=== PATIENT | male | born 1955 | race Caucasian/White ===

== ENCOUNTER 2017-06-13 12:40 | Emergency (ER) | payer MEDICARE ==
[~2017-06-13] VITALS: Ht 162.5 cm; Wt 48.5 kg
[~2017-06-13 12:40] MED LIST: ALBUTEROL0.09 MG/A2 INH; AZITHROMYCIN250 MG PO; CLINDAMYCIN HC300 MG PO; FLOVENT 220 M220 MCG INH; FLOVENT DI250 MCG/Ac IH; HYDROCODONE BIT1 T11 PO; SPIRIVA18 MCG PO
== END 2017-06-13 14:53 | disposition left against medical advice (07) ==
LOC: ED 12:40
DX: E87.1 Hypo-osmolality and hyponatremia (principal); Z88.0 Allergy status to penicillin; Z79.899 Other long term (current) drug therapy; F17.200 Nicotine dependence, unspecified, uncomplicated

== ENCOUNTER 2018-03-01 18:46 | Inpatient (IN) | payer MEDICARE ==
[~2018-03-01] VITALS: Ht 162.5 cm; Wt 45.8 kg
--- NOTE | ~2018-03-01 | PR ---
[place], [place] PROGRESS NOTE NAME: CAIN HUBBARD [facility] #: [id number] UNIT #: [id number] ROOM: 406 DOCTOR: ARLEEN PERRY MD,GARCIA BIRTHDATE: [birth year] DOS: 03/03/2018 SUBJECTIVE: He has been showing gradual reduction in the respiratory symptom and reduction of cough, wheezing and shortness of breath. Denies symptoms of chest pain or any hemoptysis. OBJECTIVE: VITAL SIGNS: Which have been recorded showed normal temperature, respirations 18, heart rate 92, and blood pressure 130/75, pulse oxygen saturation on room air 95% saturation. HEENT: No acute changes. CARDIOVASCULAR: S1, S2 audible. LUNGS: Noted with mild expiratory wheezing, patient noted decreased from previously with improvement in air entry of the lungs. ABDOMEN: Flat, soft, nontender. Bowel sounds present. EXTREMITIES: Without any acute edema. LABORATORY DATA: The patient's CBC; WBC count and platelet count normal, hematocrit was 9.7. The CMP of the patient this morning, glucose 186. BUN and creatinine was normal. Sodium 134. IMPRESSION: 1. The patient ____ noted with gradual improvement in the respiratory status, noted with acute exacerbation of chronic obstructive pulmonary disease and acute bronchitis. 2. History of past chronic nicotine dependence. PLAN OF MANAGEMENT: Continuation of the bronchodilators, oxygen supplementation. Decrease Solu-Medrol dose to 40 mg b.i.d. dosing. Other supportive plan of management. Ambulation was encouraged as tolerated. GARCIA BACON MD CM:PNTRANS [id number] GARCIA PERRY MD 03/03/18 1758 interface
--- NOTE | ~2018-03-01 | EKG ---
[place], [place] ELECTROCARDIOGRAM REPORT NAME: CAIN HUBBARD UNIT #: [id number] ROOM: 405 DOCTOR: ARLEEN PERRY MD,GARCIA BIRTHDATE: [birth year] DOS: 03/01/2018 Echocardiogram was done on 03/01/2018. Sinus tachycardia noted. Heart rate 100 beats per minute. Biatrial enlargement would be considered. Nonspecific ST-T changes were noted. Poor R-wave progression. Possibility of old anterior wall myocardial infarction would be considered. GARCIA BACON MD CM:EKGRPT:ELECTROCARDIOGRAM REPORT [id number] GARCIA PERRY MD
--- NOTE | ~2018-03-01 | PR ---
[place], [place] PROGRESS NOTE NAME: CAIN HUBBARD [facility] #: [id number] UNIT #: [id number] ROOM: 406 DOCTOR: ARLEEN PERRY MD,GARCIA BIRTHDATE: [birth year] DOS: 03/04/2018 SUBJECTIVE: The patient was noted comfortable at this time without acute distress. He has not been noted any symptoms of chest pain. Overall improvement in respiratory symptoms was continued. OBJECTIVE: VITAL SIGNS: Normal temperature, respiratory rate 18, heat rate 86, blood pressure 126/72. The pulse oxygen saturation of the patient room air 96% saturation. HEENT: Head was atraumatic. Eyes nonicterus. NECK: Supple. CARDIOVASCULAR: S1, S2 audible. LUNGS: The patient was noted without any wheezing or crackles. ABDOMEN: Soft, nontender. Bowel sounds present. EXTREMITIES: Without any acute edema. IMPRESSION: 1. The patient with stable respiratory status was noted at the present time with current medical management. 2. Resolving acute exacerbation of chronic obstructive pulmonary disease and acute history of nicotine abuse previously. PLAN OF MANAGEMENT: The patient could be discharged home today on tapering dose of prednisone and antibiotic. Abstain tobacco use and outpatient assessment post-discharge were recommended. GARCIA BACON MD CM:PNTRANS [id number] GARCIA PERRY MD 03/04/181926 interface
--- NOTE | ~2018-03-01 | CON ---
[place], [place] REPORT OF CONSULTATION NAME: CAIN HUBBARD [facility] #: [id number] UNIT #: [id number] ROOM: 405 DOCTOR: ARLEEN PERRY MDGARCIA BIRTHDATE: [birth year] DOS: 03/02/2018 PULMONARY CONSULTATION EVALUATION AND MANAGEMENT CONSULTATION REQUESTED BY: Hospitalist Services. REASON FOR CONSULTATION: Assessment of the current acute exacerbation of chronic obstructive pulmonary disease. HISTORY OF PRESENT ILLNESS: A 62-year-old white male patient who has been admitted to the hospital under the care of the Hospitalist Service on 03/01/2018. The patient presented to the Emergency Room was reporting having symptoms of increased shortness of breath associated with cough and wheezing occurring in the past few days with significant worsening. He came into the Emergency Room where he has been assessed. The patient noted with acute exacerbation of chronic obstructive pulmonary disease and recommended for hospitalization. The patient denies any symptoms of chest pain or hemoptysis. The cough has been noted with the green sputum expectoration small to moderate quantity at time. The shortness of breath occurring with mild exertion. The wheezing was noted with tightness in the chest. There was no chest pain. REVIEW OF SYSTEMS: CONSTITUTIONAL: Fatigue and tiredness reported. No symptoms of fever or chills. EYES: Denies any burning, redness, or tenderness. CARDIOVASCULAR: Denies angina pain, edema, pain of the lower extremities. GASTROINTESTINAL: No dysphagia, nausea, vomiting, diarrhea, abdominal pain, hematemesis, melena, or hematochezia. GENITOURINARY: Denies dysuria, suprapubic pain, hematuria. MUSCULOSKELETAL: No acute joint pain, redness, or tenderness. CENTRAL NERVOUS SYSTEM: No dizziness, headache, diplopia, syncopal episodes or tingling sensation of any extremities. Remaining systems were reviewed, they were noted all negative. PAST MEDICAL HISTORY: 1. Reported with history of chronic obstructive pulmonary disease. 2. Essential hypertension. 3. Seasonal allergies. 4. Chronic hypoxic respiratory failure, nonadherent with the use of oxygen. 5. Vitamin D deficiency. PAST SURGICAL HISTORY: Tonsillectomy. SOCIAL HISTORY: The patient stated he is . He started smoking at younger age, smoked 2 packs of cigarettes per day, later on decreased to a pack of cigarettes per day and currently smoking half a pack of cigarettes per day. He is and lives at home. FAMILY HISTORY: The patient's father from complications of COPD. Mother [place], [place] RE[facility]ATION [id number] UNIT #: [id number] ROOM: 405 DOCTOR: ARLEEN PERRY MDGARCIA BIRTHDATE: [birth year] from complication related to diabetes mellitus. HOME MEDICATIONS: Noted use of Flovent Diskus 250 mcg one b.i.d. and Ventolin HFA inhaler p.r.n. use. DRUG ALLERGIES: NOTED ALLERGY TO PENICILLINS. PHYSICAL EXAMINATION: GENERAL: A 62-year-old white male who has been currently noted to be awake and alert, lying in the bed. Height of 5 feet 4 inches, weight of 101 pounds, BMI 17. VITAL SIGNS: Temperature 101.4 degree Fahrenheit noted on admission later on afebrile, respiratory rate 18-22, heart rate 112-91, blood pressure 120/71-129/79. Pulse oxygen saturation on room air was 91% saturation, 95% saturation at rest. HEENT: Head was atraumatic. Eyes nonicterus. NECK: Supple. CARDIOVASCULAR: S1, S2 is audible. LUNGS: Noted moderate general reduction in breath sound, diffuse expiratory wheezing, no crackles. ABDOMEN: Soft, nontender, flat. The bowel sounds present. EXTREMITIES: No edema, clubbing, cyanosis. CENTRAL NERVOUS SYSTEM: Noted nonfocal. MUSCULOSKELETAL: Without any acute deformities. SKIN: Noted without any abnormal lesions or rashes. LABORATORY DATA: CMP of the patient that was done yesterday on admission noted essentially normal CMP except sodium was mildly decreased 127. The PT, PTT yesterday were noted normal. CBC yesterday, WBC count 14,000, hemoglobin 12.3, platelet count of 269,000. Lactic acid 1.7. The arterial blood gas yesterday pH of 7.38, pCO2 of 31, PO2 of 71 on room air. The PT, PTT this morning remains normal. CMP this morning, glucose 148, BUN and creatinine normal, sodium increased to 130. CBC of 03/02/2018 resolution of the leukocytosis. WBC count today was noted 8.6, platelet count were normal. The influenza A and B, nasal washing antigen negative. Chest x-ray, 1 view, which was done in the Emergency Room was reviewed, noted with changes of COPD without any acute pulmonary infiltration. IMPRESSION: 1. The patient will be admitted to the hospital noted with acute exacerbation of chronic obstructive pulmonary disease, acute bronchitis, which was noted progressive worse with the chronic nicotine dependence, by history. 2. History of essential hypertension as well. PLAN OF MANAGEMENT: Continuation of the corticosteroids and the bronchodilators administration. The dose of Solu-Medrol will be decreased based on progressive illness. Continue antibiotics. DVT prophylaxis. Monitor respiratory status closely. Counseling about tobacco cessation was done for more than 3 minutes. He was offered nicotine replacement patch as other medication to help with tobacco cessation or currently withdrawal stating that he does not wish to use [place], [place] REPORT OF CONSULTATION NAME: CAIN HUBBARD [facility] UNIT #: [id number] ROOM: 405 DOCTOR: ARLEEN PERRY MD,GARCIA BIRTHDATE: [birth year] any of such intervention at this time. The patient does not want any medication during this hospitalization to have a tobacco cessation will be ordered accordingly. Sputum for Gram stain culture was ordered. Thanks for allowing me to participate in the care of this patient. GARCIA BACON MD CM:CONSTR:REPORT OF CONSULTATION 1355 03/03/18 0403 interface
[2018-03-01 18:47] VITALS: BP 129/80
[2018-03-01 19:23] VITALS: BP 131/80
[2018-03-01 19:30] LABS: BASO % 0.3 % (0.0-1.0); HEMATOCRIT 36.1 % (42.0-52.0); HEMOGLOBIN 12.3 g/dl (14.0-18.0); LYMPH # 0.9 10*3/uL (1.3-4.4); LYMPH % 6.2 % (27.0-41.0); MEAN CELL VOLUME 98.1 fl (80.0-94.0); MEAN CORPUSCULAR HGB 33.4 pg (27.0-31.0); MEAN CORPUSCULAR HGB CONC 34.1 g/dl (33.0-37.0); MEAN PLATELET VOLUME 9.3 fl (9.6-12.3); MONO # 0.9 10*3/uL (0.1-1.0); MONO % 6.6 % (3.0-9.0); NEUT # 12.1 10*3/uL (2.3-7.9); NEUT % 86.6 % (47.0-73.0); PLATELET COUNT AUTOMATED 269 10*3/uL (130-400); RED BLOOD COUNT 3.68 10*6/uL (4.50-5.90); RED CELL DISTRI WIDTH 12.9 % (0-14.5)
[2018-03-01 19:47] LABS: ALBUMIN 3.6 gm/dl (3.1-4.5); ALKALINE PHOSPHATASE 37 U/L (45-117); BUN 13 mg/dl (7-24); CHLORIDE 92 mmol/L (98-107); CREATININE 1.17 mg/dL (0.70-1.30); POTASSIUM 4.6 mmol/L (3.5-5.1); SGOT/AST 15 IU/L (3-35); SGPT/ALT 13 U/L (12-78); SODIUM 127 mmol/L (136-145); TOTAL PROTEIN 7.9 gm/dL (6.4-8.2)
[2018-03-01 19:48] LABS: TROPONIN I < 0.015 ng/ml (<0.045)
[2018-03-01 20:19] VITALS: BP 137/74
[2018-03-01 20:37] VITALS: BP 129/79
[2018-03-01 20:48] LABS: ABG BASE EXCESS -5.6 mmol/L (-2.0-2.0); ABG HCO3 17.9 mmol/l (22-26); ABG O2 SATURATION 93.3 % (95-97); ARTERIAL BLOOD GAS PCO2 31.4 mmHg (35-45); ARTERIAL BLOOD GAS PH 7.38 (7.35-7.45); ARTERIAL BLOOD GAS PO2 71.1 mmHg (80-90)
[2018-03-02] VITALS: BP 104/71
[2018-03-02 06:35] LABS: HEMATOCRIT 33.8 % (42.0-52.0); HEMOGLOBIN 10.9 g/dl (14.0-18.0); MEAN CELL VOLUME 98.5 fl (80.0-94.0); MEAN CORPUSCULAR HGB 31.8 pg (27.0-31.0); MEAN CORPUSCULAR HGB CONC 32.2 g/dl (33.0-37.0); MEAN PLATELET VOLUME 9.7 fl (9.6-12.3); PLATELET COUNT AUTOMATED 232 10*3/uL (130-400); RED BLOOD COUNT 3.43 10*6/uL (4.50-5.90); RED CELL DISTRI WIDTH 12.6 % (0-14.5); WHITE BLOOD COUNT 8.6 10*3/uL (4.8-10.8)
[2018-03-02 07:05] LABS: ALBUMIN 2.9 gm/dl (3.1-4.5); BUN 13 mg/dl (7-24); CHLORIDE 98 mmol/L (98-107); CHOLESTEROL 127 mg/dL (<200); CREATININE 0.89 mg/dL (0.70-1.30); PHOSPHOROUS 3.3 mg/dL (2.5-4.9); POTASSIUM 4.5 mmol/L (3.5-5.1); SGOT/AST 15 IU/L (3-35); SGPT/ALT 10 U/L (12-78); SODIUM 130 mmol/L (136-145)
[2018-03-02 07:07] LABS: ACT PARTIAL THROMBO TIME 31.1 SECONDS (20.8-31.5)
[2018-03-02 07:09] LABS: ALKALINE PHOSPHATASE 34 U/L (45-117); FREE T4 1.05 ng/dl (0.76-1.46); HDL CHOLESTEROL 68 mg/dl (40-60); LDL CHOLESTEROL 51 mg/dL (9-159); THYROID STIM HORMONE (HS) 0.561 uIU/ml (0.358-4.75); TOTAL PROTEIN 6.8 gm/dL (6.4-8.2); TRIGLYCERIDES 41 mg/dl (<150); VLDL CHOLESTEROL 8 mg/dL (6-40)
[2018-03-02 07:30] LABS: BURR CELLS FEW; PLATELET SUFFICIENCY NORMAL (NORMAL); TOTAL CELLS COUNTED 100 #CELLS
[2018-03-02 08:00] VITALS: BP 112/66
[2018-03-02 08:20] LABS: VITAMIN D, 25-HYDROXY 32.6 ng/mL (30-100)
[2018-03-02 12:00] VITALS: BP 120/76
[2018-03-02 16:00] VITALS: BP 115/68
[2018-03-02] MEDS ORDERED: SINGULAIR10 M1 PO (16:54)
[2018-03-02] MEDS ORDERED: NORVASC5 MG PO (16:54)
[2018-03-02] MEDS ORDERED: VITAMIN D31000 UNIT PO (16:56)
[2018-03-02 20:00] VITALS: BP 125/67
[2018-03-03] VITALS: BP 118/64
[2018-03-03 07:12] LABS: HEMATOCRIT 28.6 % (42.0-52.0); HEMOGLOBIN 9.7 g/dl (14.0-18.0); MEAN CELL VOLUME 96.3 fl (80.0-94.0); MEAN CORPUSCULAR HGB 32.7 pg (27.0-31.0); MEAN CORPUSCULAR HGB CONC 33.9 g/dl (33.0-37.0); MEAN PLATELET VOLUME 9.8 fl (9.6-12.3); PLATELET COUNT AUTOMATED 241 10*3/uL (130-400); RED BLOOD COUNT 2.97 10*6/uL (4.50-5.90); RED CELL DISTRI WIDTH 12.8 % (0-14.5); WHITE BLOOD COUNT 10.7 10*3/uL (4.8-10.8)
[2018-03-03 07:44] LABS: ALBUMIN 2.7 gm/dl (3.1-4.5); BUN 17 mg/dl (7-24); CHLORIDE 104 mmol/L (98-107); CREATININE 0.79 mg/dL (0.70-1.30); SGOT/AST 16 IU/L (3-35); SGPT/ALT 10 U/L (12-78); SODIUM 134 mmol/L (136-145)
[2018-03-03 07:46] LABS: ALKALINE PHOSPHATASE 34 U/L (45-117)
[2018-03-03 08:00] VITALS: BP 131/75
[2018-03-03 08:26] LABS: PLATELET SUFFICIENCY NORMAL (NORMAL); POLYCHROMASIA SLIGHT; TOTAL CELLS COUNTED 100 #CELLS
[2018-03-03 12:00] VITALS: BP 117/64
[2018-03-03 16:00] VITALS: BP 135/68
[2018-03-03 20:16] VITALS: BP 142/79
[2018-03-04 00:32] VITALS: BP 125/78
[2018-03-04 07:02] LABS: HEMATOCRIT 29.1 % (42.0-52.0); HEMOGLOBIN 9.9 g/dl (14.0-18.0); MEAN CELL VOLUME 96.4 fl (80.0-94.0); MEAN CORPUSCULAR HGB 32.8 pg (27.0-31.0); MEAN PLATELET VOLUME 9.2 fl (9.6-12.3); PLATELET COUNT AUTOMATED 245 10*3/uL (130-400); RED BLOOD COUNT 3.02 10*6/uL (4.50-5.90); WHITE BLOOD COUNT 8.6 10*3/uL (4.8-10.8)
[2018-03-04 07:35] LABS: CHLORIDE 103 mmol/L (98-107); SODIUM 136 mmol/L (136-145)
[2018-03-04 07:39] LABS: BUN 15 mg/dl (7-24); CREATININE 0.78 mg/dL (0.70-1.30); PLATELET SUFFICIENCY NORMAL (NORMAL); TOTAL CELLS COUNTED 100 #CELLS
[2018-03-04 08:00] VITALS: BP 126/72
[2018-03-04] MEDS ORDERED: LEVAQUIN500 M2 PO (10:34)
[2018-03-04] MEDS ORDERED: PREDNISONE10 MG PO (10:34)
[2018-03-04 12:59] VITALS: BP 123/70
== END 2018-03-04 13:01 | disposition home or self-care (01) | DRG 871 ==
LOC: ED 18:46 → 4E 19:51 → EDHOLD 19:51 → 4E 20:18
PROVIDERS: Emergency Medicine; Family Medicine; Student in an Organized Health Care Education/Training Program
DX: A41.9 Sepsis, unspecified organism (principal); J18.9 Pneumonia, unspecified organism; J96.21 Acute and chronic respiratory failure with hypoxia; J44.1 Chronic obstructive pulmonary disease with (acute) exacerbation; E87.1 Hypo-osmolality and hyponatremia; J44.0 Chronic obstructive pulmonary disease with (acute) lower respiratory infection; I10 Essential (primary) hypertension; F10.10 Alcohol abuse, uncomplicated; D53.9 Nutritional anemia, unspecified; Z53.29 Procedure and treatment not carried out because of patient's decision for other reasons; J20.9 Acute bronchitis, unspecified; R73.9 Hyperglycemia, unspecified; F17.210 Nicotine dependence, cigarettes, uncomplicated; E55.9 Vitamin D deficiency, unspecified; J30.2 Other seasonal allergic rhinitis; Z88.0 Allergy status to penicillin; Z79.51 Long term (current) use of inhaled steroids; Z71.6 Tobacco abuse counseling; Z79.899 Other long term (current) drug therapy

== ENCOUNTER 2018-10-20 23:46 | Inpatient (IN) | payer MEDICARE ==
--- NOTE | ~2018-10-20 | PR ---
[place], [place] PROGRESS NOTE [id number] UN[facility] #: [id number] ROOM: 404 DOCTOR: ARLEEN PERRY MD,GARCIA BIRTHDATE: [birth year] DOS: 10/23/2018 SUBJECTIVE: He has been reporting reduction and improvement in respiratory symptoms progressively. Denies symptoms of chest pain. Coughing has been subsiding, not completely resolved. Shortness of breath was improving. There were no symptoms of chest pain. OBJECTIVE: VITAL SIGNS: For the patient in the past 24 hours as a normal temperature, respirations 16, heart rate 80, blood pressure 90/62. Pulse oxygen saturation as 97% saturation. HEENT: Head was atraumatic. Eye nonicterus. NECK: Supple. CARDIOVASCULAR: S1, S2 audible. LUNGS: Moderate reduction of the breath sounds bilaterally. ABDOMEN: Soft, nontender, bowel sounds present. EXTREMITIES: Without any acute edema. IMPRESSION: Resolving acute exacerbation of chronic obstructive pulmonary disease, acute tracheobronchitis progressively. PLAN OF MANAGEMENT: No changes in the plan of care at this time. Continue current therapy, plan of management and care and other treatment and therapies without any changes. GARCIA BACON MD CM:PIPER [id number] GARCIA PERRY MD 10/23/18 1434 interface
--- NOTE | ~2018-10-20 | EKG ---
[place], [place] ELECTROCARDIOGRAM REPORT NAME: CAIN HUBBARD UNIT #: [id number] ROOM: 404 DOCTOR: KACEY DRAFT REPORT BIRTHDATE: [birth year] [facility] Test Date: 2018-10-21 Test Time: 00:04:18 Pat Name: CAIN HUBBARD Department: ED Room: 404 Gender: M [employer] Technician: Ruby Rudd : 1955 Requested By: TORIBIO HARO Order Number: [id number] Reading MD: Jhon Mccarthy MD Measurements Intervals [place] Rate: 89 P: 88 [place]: 136 QRS: 83 QRSD: 73 T: 70 QT: 351 QTc: 428 Interpretive Statements Sinus rhythm Probable left atrial enlargement Anterior infarct, old Electronically Signed On 10-21-2018 12:04:47 PST by Jhon Mccarthy MD CM:EKGRPT:ELECTROCARDIOGRAM REPORT [id number] TORIBIO HARO EPIPHANY DRAFT REPORT TORIBIO HARO
--- NOTE | ~2018-10-20 | CON ---
[place], [place] REPORT OF CONSULTATION NAME: CAIN HUBBARD [facility] #: [id number] UNIT #: [id number] ROOM: 404 DOCTOR: GARCIA CHAND MD BIRTHDATE: [birth year] DOS: 10/21/2018 PULMONARY CONSULTATION, EVALUATION AND MANAGEMENT REASON FOR CONSULTATION: For the assessment of COPD. HISTORY OF PRESENT ILLNESS: A 62-year-old white male patient who has been admitted to the hospital. The patient developed symptoms of shortness of breath with coughing, chest congestion, and wheezing overnight. He has been assessed in the Emergency Room early this morning. He has been noted with acute exacerbation of chronic obstructive pulmonary disease. The patient admitted to the hospital for further medical management. He denies symptoms of chest pain or hemoptysis. Cough has been noted [id number] with small amount of sputum expectoration, wheezing, or chest tightness was reported. Shortness of breath occurs significantly worsened with minimal exertion. The patient supposedly be using oxygen supplementation at home continuously, but stating he does not follow directions and using oxygen regularly as prescribed. REVIEW OF SYSTEMS: CONSTITUTIONAL SYMPTOMS: Fatigue and tiredness noted. Denies symptoms of fever or chills. EYES: Denies burning, redness, or tenderness. EARS, NOSE, THROAT SYMPTOMS: Denies sore throat, hoarseness, otalgia, postnasal drainage, or epistaxis. CARDIOVASCULAR: Denies anginal pain, edema, and pain of the lower extremities. MUSCULOSKELETAL: No joint pain, redness, or tenderness. SKIN: Denies lesions or rashes. CENTRAL NERVOUS SYSTEM: No dizziness, headache, diplopia, or syncopal episode. GENITOURINARY SYMPTOMS: No dysuria, suprapubic pain, hematuria, or urinary incontinence. Remaining systems were reviewed. They were noted all negative. PAST MEDICAL HISTORY: 1. Known history of chronic obstructive pulmonary disease. 2. Chronic hypoxic respiratory failure, use of oxygen supplementation 2 liters nasal cannula, but noted nonadhering with the treatment. 3. Osteoarthritis. 4. Essential hypertension. 5. Seasonal allergic rhinitis. 6. Vitamin D deficiency. PAST SURGICAL HISTORY: Noted as tonsillectomy. SOCIAL HISTORY: The patient is and lives at home. He does not have any children. He has been known with history of intermittent marijuana use. Social alcohol use. Tobacco use noted from age of [age] years old up to 2 packs of cigarettes per day, which has been decreased, half a pack of cigarettes per day at this time. [place], [place] REPORT OF CONSULTATION NAME: CAIN HUBBARD UNIT #: [id number] ROOM: 404 DOCTOR: GARCIA CHAND MD BIRTHDATE: [birth year] FAMILY HISTORY: The patient's father of a complication of COPD. Mother of complication of diabetes mellitus. HOME MEDICATIONS: Listed use of albuterol sulfate nebulizer, ProAir, Norvasc, vitamin D, Flovent Diskus, ibuprofen, Singulair, Anoro Ellipta, and fish oil. DRUG ALLERGIES: PENICILLINS. PHYSICAL EXAMINATION: GENERAL: A 62-year-old white male currently noted to be awake and alert without acute distress this morning of assessment. Height of 5 feet 4 inches, weight of 106 pounds, BMI of 18.2. VITAL SIGNS: Normal temperature, respiratory rate 16, heart rate of 79-80, blood pressure is 135/77-113/69. Pulse oxygen at rest on room air 95% saturation. HEENT: Examination shows no acute change. Head was atraumatic. Eyes nonicterus. Oral mucosa moist. NECK: Supple. CARDIOVASCULAR: S1, S2 is audible. LUNGS: Noted general reduction in breath sounds with mild expiratory wheezing, no crackles. ABDOMEN: Flat, soft, nontender. Bowel sounds present. EXTREMITIES: Noted without any acute edema, clubbing, or cyanosis. MUSCULOSKELETAL: Noted without any acute deformities. CENTRAL NERVOUS SYSTEM: Cranial nerves 2-12 intact. LABORATORY DATA: The chest x-ray that was done, 1 view, this morning noted with advanced COPD changes. Severe hyperinflation of the lungs. CBC of 10/21/2018, normal WBC count, hemoglobin 13.5, hematocrit 40.2, and platelet count was normal. Lactic acid 3.0 on admission, followup of 0.6. The PT, PTT for the noted as normal. CMP of 10/21/2018, normal BUN and creatinine, sodium 133, remaining CMP was normal. CMP this morning repeated again after hospitalization. Normal BUN and creatinine, sodium 134. CBC this morning repeated again, hemoglobin 8, hematocrit 12.8, platelet count was recorded as normal. Influenza A and B, nasal washing antigens were negative. IMPRESSION: 1. The patient who has been currently admitted to the hospital for acute exacerbation of chronic obstructive pulmonary disease appear to be advanced chronic obstructive pulmonary disease with history of chronic nicotine dependence. 2. History of chronic hypoxic respiratory failure. The patient has been noted nonadhering with treatment with use of oxygen. 3. Active nicotine abuse. 4. Low BMI, most likely related to the advanced chronic obstructive pulmonary disease would be considered as well. PLAN OF MANAGEMENT: The patient has been currently getting Solu-Medrol 50 mg q.8 hours. The dose will be decreased to 40 mg q.8 hours, DuoNeb will ____ herself for medical history of COPD. The patient has been getting antibiotic, [place], [place] REPORT OF CONSULTATION NAME: CAIN HUBBARD UNIT #: [id number] ROOM: [facility] DOCTOR: ARLEEN PERRY MD,GARCIA BIRTHDATE: [birth year] Zithromax, and Rocephin At the present time, the antibiotic spectrum will be changed based on the culture results availability. Other supportive therapy, plan of management, care plan for the patient to be continued. Obtain the arterial blood gas to assess the hypercapnia as well. Nicotine replacement patches as well. Other additional treatment changes will be ordered based on the progression of the illness. Outpatient assessment for alpha-1 antitrypsin deficiency should be done because what appears like advanced COPD with emphysema. GARCIA BACON MD CM:CONSTR:REPORT OF CONSULTATION 1335 10/21/18 1924 interface
--- NOTE | ~2018-10-20 | PR ---
[place], [place] PROGRESS NOTE NAME: CAIN HUBBARD [facility] #: [id number] UNIT #: [id number] ROOM: 404 DOCTOR: ARLEEN PERRY MD,GARCIA BIRTHDATE: [birth year] DOS: 10/22/2018 SUBJECTIVE: The patient was seen and examined on 10/22/2018. He has been rather noted with reduction in the respiratory symptoms slowly. Cough has been noted with small amount of sputum expectoration, appear to be purulent. There were symptoms of chest pain, fever or chills reported by the patient. OBJECTIVE: VITAL SIGNS: Normal temperature, respiratory rate 20, heart rate 74, blood pressure 190/58. The pulse oxygen saturation on 1 liter nasal cannula 98% saturation. HEENT: No acute change. NECK: Supple. CARDIOVASCULAR: S1, S2 is audible. LUNGS: Moderate decreased breath sounds with expiratory wheezing, no crackles. ABDOMEN: Soft, nontender. Bowel sounds present. EXTREMITIES: No edema. LABORATORY DATA: CBC today; WBC count 7.2, hemoglobin 11.8, platelet count were normal. IMPRESSION: The patient with resolving acute exacerbation of chronic obstructive pulmonary disease, acute tracheobronchitis progressively. PLAN OF MANAGEMENT: No changes in the plan of therapy at this time. Continue current plan of management. Follow the results of the sputum for Gram stain and culture, which will be sent today. GARCIA BACON MD CM:PNTRANS 1258 1605 GARCIA PERRY MD 10/22/18 1603 interface
[~2018-10-20 23:46] MED LIST changes: +LEVAQUIN500 M2 PO; +NORVASC5 MG PO; +PREDNISONE10 MG PO; +SINGULAIR10 M1 PO; +VITAMIN D31000 UNIT PO
[2018-10-20 23:50] VITALS: BP 135/77
[2018-10-21] VITALS (7 sets, daily range): BP systolic 106–132; BP diastolic 61–70
[2018-10-21 00:14] LABS: BASO % 0.4 % (0.0-1.0); EOS # 0.1 10*3/uL (0.0-0.4); EOS % 0.5 % (1.0-4.0); HEMATOCRIT 40.2 % (42.0-52.0); HEMOGLOBIN 13.5 g/dl (14.0-18.0); LYMPH # 2.3 10*3/uL (1.3-4.4); LYMPH % 24.6 % (27.0-41.0); MEAN CELL VOLUME 100.8 fl (80.0-94.0); MEAN CORPUSCULAR HGB 33.8 pg (27.0-31.0); MEAN CORPUSCULAR HGB CONC 33.6 g/dl (33.0-37.0); MEAN PLATELET VOLUME 9.1 fl (9.6-12.3); MONO # 0.5 10*3/uL (0.1-1.0); MONO % 5.5 % (3.0-9.0); NEUT # 6.4 10*3/uL (2.3-7.9); NEUT % 68.8 % (47.0-73.0); PLATELET COUNT AUTOMATED 284 10*3/uL (130-400); RED BLOOD COUNT 3.99 10*6/uL (4.50-5.90); RED CELL DISTRI WIDTH 12.8 % (0-14.5); WHITE BLOOD COUNT 9.3 10*3/uL (4.8-10.8)
--- NOTE | 2018-10-21 00:18 | NUR ---
CRITICAL LACTIC ACID 3.0
[2018-10-21 00:26] LABS: ACT PARTIAL THROMBO TIME 21.6 SECONDS (20.8-31.5); INTERNATIONAL NORM RATIO 0.9 (2.0-3.5)
[2018-10-21 00:31] LABS: ALBUMIN 3.6 gm/dl (3.1-4.5); ALKALINE PHOSPHATASE 38 U/L (45-117); BUN 19 mg/dl (7-24); CHLORIDE 100 mmol/L (98-107); CREATININE 1.18 mg/dL (0.70-1.30); LIPASE 171 U/L (73-393); POTASSIUM 4.2 mmol/L (3.5-5.1); SGOT/AST 23 IU/L (3-35); SODIUM 133 mmol/L (136-145); TOTAL PROTEIN 7.4 gm/dL (6.4-8.2)
[2018-10-21 00:33] LABS: SGPT/ALT 21 U/L (12-78)
[2018-10-21 00:37] LABS: TROPONIN I < 0.015 ng/ml (<0.045)
--- NOTE | 2018-10-21 01:48 | NUR ---
PT STATES HE FEELS BETTER NO SIGN OF DISTRESS RESP EASY
--- NOTE | 2018-10-21 01:53 | NUR ---
PT DOES NOT HAVE MED LIST WITH HIM, ALL MEDS THROUGH [facility], B/P VIT D CHLESTOROL (FISH OIL) SINUS PILL, INHALERS X3 PT IS SUPPOSE TO BE ON O2 BUT KHAS NOT BEEN USING IT
--- NOTE | 2018-10-21 01:58 | NUR ---
PT REFUSES TO REMOVE JEXIOMY
--- NOTE | 2018-10-21 02:30 | NUR ---
Time: 229 A 62 year old MALE admitted to under services of JANET ALLEN DO. Pt. arrived via stretcher from ER. Chief complaint: SHORTNESS OF BREATH, HX OF COPD. MARK ANTHONY CONTEH
--- NOTE | 2018-10-21 02:40 | NUR ---
CALLED DR. NARVAEZ WITH CRITICAL LACTIC ACID RESULT OF 2.1. NO NEW ORDERS RECEIVED.
[2018-10-21] MEDS ORDERED: IBU800 M1 PO (02:56)
[2018-10-21] MEDS ORDERED: RA FISH OIL 1,1 EACH PO (02:57)
[2018-10-21] MEDS ORDERED: ANORO ELLIPTA1 EACH INH (02:58)
[2018-10-21] MEDS ORDERED: PROAIR HFA8.5 GM INH (03:01)
[2018-10-21 04:38] LABS: HEMATOCRIT 38.3 % (42.0-52.0); HEMOGLOBIN 12.8 g/dl (14.0-18.0); MEAN CORPUSCULAR HGB 33.1 pg (27.0-31.0); MEAN CORPUSCULAR HGB CONC 33.4 g/dl (33.0-37.0); MEAN PLATELET VOLUME 9.2 fl (9.6-12.3); PLATELET COUNT AUTOMATED 270 10*3/uL (130-400); RED BLOOD COUNT 3.87 10*6/uL (4.50-5.90); RED CELL DISTRI WIDTH 12.8 % (0-14.5)
[2018-10-21 04:54] LABS: ALBUMIN 3.6 gm/dl (3.1-4.5); ALKALINE PHOSPHATASE 37 U/L (45-117); BUN 16 mg/dl (7-24); CHLORIDE 101 mmol/L (98-107); CHOLESTEROL 212 mg/dL (<200); HDL CHOLESTEROL 92 mg/dl (40-60); LDL CHOLESTEROL 102 mg/dL (9-159); PHOSPHOROUS 3.6 mg/dL (2.5-4.9); POTASSIUM 4.8 mmol/L (3.5-5.1); SGOT/AST 17 IU/L (3-35); SGPT/ALT 20 U/L (12-78); SODIUM 134 mmol/L (136-145); TOTAL PROTEIN 6.9 gm/dL (6.4-8.2); TRIGLYCERIDES 89 mg/dl (<150); VLDL CHOLESTEROL 18 mg/dL (6-40)
[2018-10-21 04:56] LABS: FREE T4 1.08 ng/dl (0.76-1.46)
[2018-10-21 05:06] LABS: BASOPHILS 1 % (0-1); TOTAL CELLS COUNTED 100 #CELLS
[2018-10-21 05:07] LABS: PLATELET SUFFICIENCY NORMAL (NORMAL)
--- NOTE | 2018-10-21 06:25 | NUR ---
MESSAGE LEFT ON DR BACON VOICEANCELMOIL FOR CONSULT
[2018-10-21 09:47] LABS: VITAMIN D, 25-HYDROXY 42.7 ng/mL (30-100)
[2018-10-22] VITALS: BP 110/66
[2018-10-22 07:47] LABS: HEMATOCRIT 36.1 % (42.0-52.0); HEMOGLOBIN 11.8 g/dl (14.0-18.0); MEAN CELL VOLUME 99.7 fl (80.0-94.0); MEAN CORPUSCULAR HGB 32.6 pg (27.0-31.0); MEAN CORPUSCULAR HGB CONC 32.7 g/dl (33.0-37.0); MEAN PLATELET VOLUME 9.7 fl (9.6-12.3); PLATELET COUNT AUTOMATED 266 10*3/uL (130-400); RED BLOOD COUNT 3.62 10*6/uL (4.50-5.90); RED CELL DISTRI WIDTH 12.9 % (0-14.5); WHITE BLOOD COUNT 7.2 10*3/uL (4.8-10.8)
[2018-10-22 08:00] VITALS: BP 109/58
[2018-10-22 08:05] LABS: BUN 23 mg/dl (7-24); CHLORIDE 101 mmol/L (98-107); CREATININE 0.98 mg/dL (0.70-1.30); POTASSIUM 4.4 mmol/L (3.5-5.1); SODIUM 135 mmol/L (136-145)
[2018-10-22 08:17] LABS: PLATELET SUFFICIENCY NORMAL (NORMAL); TOTAL CELLS COUNTED 100 #CELLS
--- NOTE | 2018-10-22 09:00 | NUR ---
Night Supervisor in to talk to patient. Patient states lives at home with . There are few steps in the home. Physician: laura chavez [facility] Home health services: none Patient's level of ADLs: INDEPENDENT Patient has working utilities: all working DME: home oxygen, portable tanks, nebulizer from [employer] Follow-up physician's appointment after d/c: will be made by hosptialist nurse director upon discharge Does patient want to access PORTAL?: no Discharge plan discussed with patient, patient lives at home with , he states he is independent in adls and ambulation, has home oxygen and portable tanks, drives, patient states he will be going home when able. discussed with him VNA and patient declines any services at this time. ROHAN ESCOBAR
[2018-10-22 12:00] VITALS: BP 103/64
[2018-10-22 16:00] VITALS: BP 103/58
[2018-10-22 20:00] VITALS: BP 104/65
[2018-10-23] VITALS: BP 100/65
--- NOTE | 2018-10-23 00:10 | NUR ---
INTO SEE PT AT THIS TIME. PT HAS NO COMPLAINTS. WILL CONTINUE TO MONITOR
[2018-10-23 06:59] LABS: HEMATOCRIT 35.6 % (42.0-52.0); HEMOGLOBIN 11.7 g/dl (14.0-18.0); MEAN CELL VOLUME 100.8 fl (80.0-94.0); MEAN CORPUSCULAR HGB 33.1 pg (27.0-31.0); MEAN CORPUSCULAR HGB CONC 32.9 g/dl (33.0-37.0); MEAN PLATELET VOLUME 9.7 fl (9.6-12.3); PLATELET COUNT AUTOMATED 255 10*3/uL (130-400); RED BLOOD COUNT 3.53 10*6/uL (4.50-5.90); RED CELL DISTRI WIDTH 13.2 % (0-14.5); WHITE BLOOD COUNT 9.2 10*3/uL (4.8-10.8)
[2018-10-23 07:19] LABS: BUN 31 mg/dl (7-24); CHLORIDE 107 mmol/L (98-107); CREATININE 0.99 mg/dL (0.70-1.30); POTASSIUM 4.5 mmol/L (3.5-5.1); SODIUM 141 mmol/L (136-145)
[2018-10-23 07:32] LABS: TOTAL CELLS COUNTED 100 #CELLS
[2018-10-23 07:33] LABS: BURR CELLS FEW
[2018-10-23 07:34] LABS: PLATELET SUFFICIENCY NORMAL (NORMAL)
--- NOTE | 2018-10-23 07:50 | NUR ---
PT RESTING IN BED. RESP-EASY AND REGULAR. OXYGEN IN USE. NO C/O AT THIS TIME. CALL LIGHT IN REACH. SEE SHIFT ASSESSMENT.
[2018-10-23 08:00] VITALS: BP 110/60
--- NOTE | 2018-10-23 09:00 | NUR ---
case management visits with patient, patient states he will be going home when able and denies any home needs
--- NOTE | 2018-10-23 10:00 | NUR ---
RESTING IN BED. RESP-EASY AND REGULAR. OXYGEN IN USE. CALL LIGHT IN REACH.
[2018-10-23 12:00] VITALS: BP 109/62
--- NOTE | 2018-10-23 12:15 | NUR ---
ASSESS FOR HOME OXYGEN: ROOM AIR AT REST: BP 110/67,SPO2 94,HR 88, RR 18 AMBULATION ON ROOM AIR: SPO2 89%, HR89, RR 18 RECOVERY ON ROOM AIR: SPO2 93, HR 90, RR 18 BP 122/[address] NOTIFIED WITH RESULTS
[2018-10-23] MEDS ORDERED: PREDNISONE10 MG PO (14:02)
[2018-10-23] MEDS ORDERED: DOXYCYCLINE100 M3 PO (14:02)
--- NOTE | 2018-10-23 14:19 | NUR ---
Discharge instructions reviewed with patient/family. Patient receptive and verbalizes understanding. Follow-up care arranged. Written instructions given to patient/family. HEPLOCK REMOVED 2X2 APPLIED. JITENDRA HOLLINS
--- NOTE | 2018-10-23 14:30 | NUR ---
ESCORTED VIA WHEELCHAIR WITH AT HIS SIDE.
[2019-01-10] MEDS ORDERED: FLOVENT HFA12 GM INH (11:20)
[2019-01-13] MEDS ORDERED: LEVOFLOXACIN500 MG PO (11:32)
[2019-01-13] MEDS ORDERED: PREDNISONE10 MG PO (11:32)
[2019-01-13] MEDS ORDERED: NICODERM CQ1 EAC2 T (12:49)
== END 2018-10-23 14:30 | disposition home or self-care (01) | DRG 190 ==
LOC: ED 23:46 → 4E 10-21 01:32 → EDHOLD 10-21 01:32 → 4E 10-21 02:10
PROVIDERS: Internal Medicine; Nurse Practitioner Family; ADMIT Internal Medicine
DX: J44.1 Chronic obstructive pulmonary disease with (acute) exacerbation (principal); J18.9 Pneumonia, unspecified organism; E87.1 Hypo-osmolality and hyponatremia; E87.2 Acidosis; J96.11 Chronic respiratory failure with hypoxia; J44.0 Chronic obstructive pulmonary disease with (acute) lower respiratory infection; J20.9 Acute bronchitis, unspecified; I10 Essential (primary) hypertension; M19.90 Unspecified osteoarthritis, unspecified site; F17.210 Nicotine dependence, cigarettes, uncomplicated; D53.9 Nutritional anemia, unspecified; E55.9 Vitamin D deficiency, unspecified; J30.2 Other seasonal allergic rhinitis; F12.90 Cannabis use, unspecified, uncomplicated; R73.9 Hyperglycemia, unspecified; Z71.6 Tobacco abuse counseling; Z88.0 Allergy status to penicillin; Z79.899 Other long term (current) drug therapy; Z87.01 Personal history of pneumonia (recurrent); Z82.5 Family history of asthma and other chronic lower respiratory diseases; Z99.81 Dependence on supplemental oxygen; Z83.3 Family history of diabetes mellitus

== ENCOUNTER 2018-11-04 18:04 | Inpatient (IN) | payer MEDICARE ==
[~2018-11-04] VITALS: Ht 162.6 cm; Wt 44.5 kg
--- NOTE | ~2018-11-04 | CON ---
[place], [place] REPORT OF CONSULTATION NAME: CAIN HUBBARD [facility] #: [id number] UNIT #: [id number] ROOM: 505 DOCTOR: ARLEEN PERRY MDGARCIA BIRTHDATE: [birth year] DOS: 11/05/2018 PULMONARY CONSULTATION EVALUATION AND MANAGEMENT: CONSULTATION REQUESTED BY: Hospitalist service. REASON FOR CONSULTATION: For assessment of acute exacerbation of COPD. HISTORY OF PRESENT ILLNESS: This is a 62-year-old white male patient, who has been admitted in the hospital a few weeks ago, managed for acute exacerbation of COPD at that time. He remains in hospital and discharged home on tapering prednisone antibiotic and suggested abstinence of tobacco use. The patient has decreased tobacco use and he was still smoking few cigarettes per day. He has been reassessed as the patient came into the Emergency Room and admitted to the hospital on 11/04/2018. He is complaining of symptoms of increased shortness of breath that has been occurring. The patient denies symptoms of chest pain. The patient does have symptoms of nonproductive cough associated with a small amount of sputum expectoration, tightness in the chest and wheezing was also reported. Denies symptoms of fever or chills. The patient has been currently admitted to the hospital for further medical management. REVIEW OF SYSTEMS: CONSTITUTIONAL SYMPTOMS: Fatigue and tiredness reported. Denies symptoms of fever or chills. EYES: Denies any burning, redness, or tenderness. EARS, NOSE, THROAT SYMPTOMS: Denies sore throat, hoarseness, otalgia, postnasal drainage or epistaxis. CARDIOVASCULAR: No angina pain, edema, pain of the lower extremities. GASTROINTESTINAL: Denies dysphagia, nausea, vomiting, diarrhea, abdominal pain, hematemesis, melena, or hematochezia. GENITOURINARY: No dysuria, suprapubic pain, hematuria. MUSCULOSKELETAL: No acute joint pain, redness, or tenderness. SKIN: Denies lesions or rashes. CENTRAL NERVOUS SYSTEM: The patient denies headache, diplopia or syncopal episodes. Remaining systems were reviewed, they were noted all negative. PAST MEDICAL HISTORY: 1. Chronic obstructive pulmonary disease. 2. Essential hypertension. 3. Seasonal allergies. 4. Vitamin D deficiency. 5. Past history of chronic hypoxic respiratory failure that resolved. The patient was assessed in the last hospitalization. Upon discharge on 10/23/2018 did not require any need of oxygen at that time. SOCIAL HISTORY: The patient is . He lives at home. Denies any history of alcohol use or any illicit drug use. Tobacco use noted since teenager, 2 packs of cigarettes per day, stating currently smoking half a pack of cigarettes [place], [place] REPORT OF CONSULTATION NAME: CAIN HUBBARD UNIT #: [id number] ROOM: [facility] DOCTOR: GARCIA CHAND MD BIRTHDATE: [birth year] per day. FAMILY HISTORY: The patient's father with complication of COPD. Mother with complications of type 2 diabetes mellitus. HOME MEDICATIONS: Administered, the patient use of Singulair, Norvasc, vitamin D, ferrous sulfate, fish oil, Lovenox for DVT prophylaxis as well as Medrol 40 mg b.i.d., Pulmicort Respules 0.5 mg b.i.d., DuoNeb, oral Levaquin and other p.r.n. medications. DRUG ALLERGIES: REPORTED ALLERGY TO PENICILLIN CAUSING SKIN HIVES. PHYSICAL EXAMINATION: GENERAL: This is a 62-year-old white male patient, currently sitting comfortably on the bed without any acute distress. Height of 5 feet 4 inches, weight of 98 pounds, BMI 16. VITAL SIGNS: Normal temperature in the last 24 hours of admission, respiratory rate of 22-26, heart rate of 66-71, blood pressure 100/68-137/72. Pulse oxygen saturation recorded on 2 liters nasal cannula 100% saturation. HEENT: Examination shows head was atraumatic. Eyes nonicterus. NECK: Supple. CARDIOVASCULAR: S1, S2 is audible. LUNGS: The patient with decreased breath sounds in the lungs bilaterally with mild to moderate expiratory wheezing without any crackles. ABDOMEN: Flat, soft, nontender. Bowel sounds present. EXTREMITIES: Loss of muscle mass. MUSCULOSKELETAL: Without acute deformities. VISIBLE SKIN: Without lesions or rashes. CENTRAL NERVOUS SYSTEM: The patient's cranial nerves 2-12 intact. LABORATORY DATA: The CMP that was done yesterday, BUN normal, creatinine was normal yesterday. Other electrolytes are grossly normal. CBC 115. WBC count 11.5, hemoglobin 13.0, platelet count were normal. PT and PTT that was done yesterday as normal. Chest x-ray: Hyperinflation of the lung without any acute changes including any pulmonary infiltration. Arterial blood gas, pH of 7.37, pCO2 of 40, pO2 117, 2 liters nasal cannula at rest. CMP of the patient this morning, glucose of 121, normal BUN and creatinine. The patient's hemoglobin 11, hematocrit 34.9, platelet count was normal. PT and PTT noted normal. IMPRESSION: 1. The patient was currently noted recurrence of acute exacerbation of chronic obstructive pulmonary disease, still noted with tobacco use and possible nonadherence to the physician instruction and the use of the record medication resulting in acute exacerbation of chronic obstructive pulmonary disease and hospitalized again. 2. Nicotine dependence. 3. Low BMI was also noted most likely secondary to advanced chronic obstructive pulmonary disease. PLAN OF TREATMENT: Continue current dose of Solu-Medrol, bronchodilators, [place], [place] REPORT OF CONSULTATION NAME: CAIN HUBBARD UNIT #: [id number] ROOM: [facility] DOCTOR: GARCIA CHAND MD BIRTHDATE: [birth year] oxygen supplementation. The bronchodilator will be seen for [place] to be referred for further management of acute exacerbation of COPD. Oxygen supplementation if necessary for the patient to maintain pulse ox is 92% greater. Additional treatment changes recommended based on progression of illness. Nicotine replacement patches as well. Sputum for Gram stain and culture as well. Thanks for allowing me to participate in the care of this patient. GARCIA BACON MD CM:CONSTR:REPORT OF CONSULTATION 1229 11/18/18 0810 interface
--- NOTE | ~2018-11-04 | PR ---
[place], [place] PROGRESS NOTE NAME: CAIN HUBBARD [facility] #: [id number] UNIT #: [id number] ROOM: 505 DOCTOR: ARLEEN PERRY MD,GARCIA BIRTHDATE: [birth year] DOS: 11/08/2018 SUBJECTIVE: The patient has been noted comfortable at this time without any acute distress, has not been reported symptoms of chest pain. The patient's wheezing and other symptoms have been gradually subsiding. OBJECTIVE: VITAL SIGNS: Normal temperature, respiratory rate 20, heart rate 74, blood pressure 117/76 this morning. Pulse ox saturation on 3 liters nasal cannula 99% saturation. HEENT: Head was atraumatic. Eyes nonicterus. NECK: Supple. CARDIOVASCULAR: S1, S2 audible. LUNGS: Without any wheezing or crackles at the present time. Wheezing has improved progressively. ABDOMEN: Soft and nontender. EXTREMITIES: No acute edema. IMPRESSION: Resolving acute exacerbation of chronic obstructive pulmonary disease, acute tracheobronchitis progressively. PLAN OF THERAPY: No changes in the plan, except discharge the patient could be done with the tapering prednisone and antibiotics. Outpatient assessment was suggested after discharge in the office for comprehensive assessment of chronic obstructive pulmonary disease. GARCIA BACON MD CM:PNTRANS [phone] GARCIA PERRY MD 11/08/18 1212 interface
--- NOTE | ~2018-11-04 | PR ---
[place], [place] PROGRESS NOTE NAME: CAIN HUBBARD [facility] #: [id number] UNIT #: [id number] ROOM: 505 DOCTOR: ARLEEN PERRY MD,GARCIA BIRTHDATE: [birth year] DOS: 11/07/2018 SUBJECTIVE: The patient has been noted with wheezing which was still noted with intermittent cough. There were no symptoms of chest pain. Denies symptoms of fever or chills or hemoptysis. OBJECTIVE: VITAL SIGNS: Normal temperature, respiratory rate 18, heart rate 79, blood pressure 127/75. Pulse oxygen saturation on 2 liters nasal cannula was 99% saturation. HEENT: No acute change. NECK: Supple. CARDIOVASCULAR: S1, S2 audible. LUNGS: Mild to moderate expiratory wheezing, unchanged from previous examination. ABDOMEN: Soft, nontender, bowel sounds present. EXTREMITIES: Without any acute edema. IMPRESSION: 1. The patient with acute exacerbation of chronic obstructive pulmonary disease with nicotine dependence. 2. Chronic hypoxic respiratory failure. PLAN OF MANAGEMENT: Continuation of the oxygen supplementation, bronchodilators and the antibiotic the patient. Monitor respiratory status, still noted with moderate expiratory wheezing. Other therapy, plan of management. Continue incentive progress. GARCIA BACON MD CM:PIPER [id number] GARCIA PERRY MD 11/07/18 1457 interface
--- NOTE | ~2018-11-04 | EKG ---
[place], [place] ELECTROCARDIOGRAM REPORT NAME: CAIN HUBBARD UNIT #: [id number] ROOM: 505 DOCTOR: KACEY DRAFT REPORT BIRTHDATE: [birth year] [facility] Test Date: 2018-11-04 Test Time: 18:23:42 Pat Name: CAIN HUBBARD Department: ER Room: 505 Gender: M Coat Operator Insulator: EKG.AK : 1955 Requested By: BRICE COOL Order Number: [id number] Reading MD: Claribel Romero MD Measurements Intervals [place] Rate: 80 P: 82 [place]: 117 QRS: 82 QRSD: 75 T: 46 QT: 352 QTc: 406 Interpretive Statements Sinus rhythm Borderline short [place] interval Probable left atrial enlargement Anterior infarct, old Compared to ECG 10/21/2018 00:04:18 No significant changes Electronically Signed On 11-05-2018 9:38:06 PST by Claribel Romero MD CM:EKGRPT:ELECTROCARDIOGRAM REPORT [id number] BRICE GUPTA DRAFT REPORT BRICE COOL DO
--- NOTE | ~2018-11-04 | PR ---
[place], [place] PROGRESS NOTE [id number] UNIT #: [id number] ROOM: 505 DOCTOR: GARCIA CHAND MD BIRTHDATE: [birth year] DOS: 11/06/2018 SUBJECTIVE: The patient noted comfortable at this time without any acute distress. He has been still noted symptoms of coughing with wheezing and shortness of breath. The symptoms noted partially decreased from yesterday's assessment. Denies symptoms of chest pain. Denies symptoms of hemoptysis. He was continued with bronchodilators, oxygen and other treatment as previously without any changes. OBJECTIVE: VITAL SIGNS: For the patient which has been recorded shows a normal temperature, respiratory rate of 18, heart rate 67, blood pressure 103/62, pulse oxygen saturation of the patient recorded as 94% saturation. HEENT: Examination shows head was atraumatic. Eyes nonicterus. NECK: Supple. CARDIOVASCULAR: S1, S2 is audible. LUNGS: Without any crackles or rhonchi. Moderate expiratory wheezing remains persistent. ABDOMEN: Soft, nontender. Bowel sounds present. EXTREMITIES: No new changes. LABORATORY DATA: Culture of the sputum from yesterday normal livia, preliminary final culture results were pending, Gram stain, moderate white blood cells with epithelial cells, gram-positive cocci in pairs with rare gram-negative bacilli and budding yeast. IMPRESSION: The patient with acute exacerbation of chronic obstructive pulmonary disease, acute tracheobronchitis, nicotine dependence, pending culture of the sputum. Partial improvement in respiratory status was noted. PLAN: No changes in the plan of care at this time. Continue the patient's current therapy as in progress. Usual care with all other treatment as planned for the patient will be continued. Any additional changes necessary will be made with the progression of the illness. No changes will be done today. [place], [place] PROGRESS NOTE NAME: CAIN HUBBARD UNIT #: [id number] ROOM: 505 DOCTOR: GARCIA CHAND MD BIRTHDATE: [birth year] GARCIA BACON MD CM:PNTRANS [phone] GARCIA PERRY MD 11/06/18 1404 interface
[~2018-11-04 18:04] MED LIST changes: +ANORO ELLIPTA1 EACH INH; +DOXYCYCLINE100 M3 PO; +IBU800 M1 PO; +PROAIR HFA8.5 GM INH; +RA FISH OIL 1,1 EACH PO
[2018-11-04 18:07] VITALS: BP 158/75
--- NOTE | 2018-11-04 18:13 | NUR ---
YAHAIRA PENG PER ROMULO ODONNELL.
[2018-11-04 18:42] VITALS: BP 116/68
[2018-11-04 18:47] LABS: BASO % 0.2 % (0.0-1.0); HEMATOCRIT 39.4 % (42.0-52.0); LYMPH # 0.8 10*3/uL (1.3-4.4); MEAN CELL VOLUME 101.5 fl (80.0-94.0); MEAN CORPUSCULAR HGB 33.5 pg (27.0-31.0); MONO # 0.4 10*3/uL (0.1-1.0); MONO % 3.4 % (3.0-9.0); NEUT % 88.8 % (47.0-73.0); PLATELET COUNT AUTOMATED 246 10*3/uL (130-400); RED BLOOD COUNT 3.88 10*6/uL (4.50-5.90); RED CELL DISTRI WIDTH 13.2 % (0-14.5); WHITE BLOOD COUNT 11.2 10*3/uL (4.8-10.8)
[2018-11-04 19:04] LABS: ALBUMIN 3.5 gm/dl (3.1-4.5); ALKALINE PHOSPHATASE 47 U/L (45-117); BUN 19 mg/dl (7-24); CHLORIDE 106 mmol/L (98-107); CREATININE 1.25 mg/dL (0.70-1.30); LIPASE 173 U/L (73-393); POTASSIUM 4.9 mmol/L (3.5-5.1); SGOT/AST 28 IU/L (3-35); SGPT/ALT 47 U/L (12-78); SODIUM 137 mmol/L (136-145); TOTAL PROTEIN 6.5 gm/dL (6.4-8.2)
[2018-11-04 19:15] LABS: ACT PARTIAL THROMBO TIME 20.5 SECONDS (20.8-31.5)
[2018-11-04 19:58] VITALS: BP 111/70
[2018-11-04 20:43] VITALS: BP 108/68
[2018-11-04 20:55] VITALS: BP 120/67
--- NOTE | 2018-11-04 20:55 | NUR ---
A 62, admitted to , under the services of ZEUS Henley DO with a diagnosis of COPD. Chief complaint is SOB FOR COUPLE DAYS, WORSENING. USED WIFES O2. SPUTUM CLEAR. Patient arrived via stretcher from ER. Monitor applied. Initial assessment completed. Vital signs taken and recorded. ZEUS HENLEY DO notified of admission to the unit. Orders received. See assessment for past medical history, medications and allergies. Patient and/or family oriented to unit. [facility]. visitation policy reviewed. Clothing/patient valuable form completed. LIZZIE GARCIA
[2018-11-04] MEDS ORDERED: FEROSUL325 MG PO (21:08)
[2018-11-04 21:13] LABS: ABG BASE EXCESS -1.3 mmol/L (-2.0-2.0); ABG HCO3 23.2 mmol/l (22-26); ABG O2 SATURATION 98.1 % (95-97); ARTERIAL BLOOD GAS PCO2 40.4 mmHg (35-45); ARTERIAL BLOOD GAS PH 7.377 (7.35-7.45)
--- NOTE | 2018-11-04 22:02 | NUR ---
CALLED DR. BACON AND NOTIFIED HIM OF CONSULT AND LABS. NO NEW ORDERS WILL SEE HIM.
--- NOTE | 2018-11-04 22:04 | NUR ---
NOTIFIED DR. RASHEED HOME MEDS ARE RECONCILLED.
[2018-11-05] VITALS: BP 137/72
--- NOTE | 2018-11-05 01:34 | NUR ---
24 HR chart check completed. [facility] called with critical troponin of 0.[address] Cook and notified him of this critical and no new orders received.
[2018-11-05 07:15] LABS: HEMATOCRIT 34.9 % (42.0-52.0); MEAN CELL VOLUME 103.6 fl (80.0-94.0); MEAN CORPUSCULAR HGB 32.6 pg (27.0-31.0); MEAN CORPUSCULAR HGB CONC 31.5 g/dl (33.0-37.0); PLATELET COUNT AUTOMATED 203 10*3/uL (130-400); RED BLOOD COUNT 3.37 10*6/uL (4.50-5.90); RED CELL DISTRI WIDTH 13.1 % (0-14.5); WHITE BLOOD COUNT 7.6 10*3/uL (4.8-10.8)
[2018-11-05 07:48] LABS: ALBUMIN 2.9 gm/dl (3.1-4.5); ALKALINE PHOSPHATASE 29 U/L (45-117); BUN 18 mg/dl (7-24); CHLORIDE 104 mmol/L (98-107); PHOSPHOROUS 3.5 mg/dL (2.5-4.9); POTASSIUM 4.6 mmol/L (3.5-5.1); SGOT/AST 18 IU/L (3-35); SGPT/ALT 37 U/L (12-78); SODIUM 135 mmol/L (136-145); TOTAL PROTEIN 5.6 gm/dL (6.4-8.2)
[2018-11-05 07:59] LABS: ACT PARTIAL THROMBO TIME 22.3 SECONDS (20.8-31.5)
[2018-11-05 08:06] LABS: BURR CELLS FEW; PLATELET SUFFICIENCY NORMAL (NORMAL); TOTAL CELLS COUNTED 100 #CELLS
--- NOTE | 2018-11-05 09:00 | NUR ---
Stem Shaper in to talk to patient. Patient states lives at home with . There are few steps in the home. Physician: laura chavez [facility]acy: [facility] Home health services: none Patient's level of ADLs: INDEPENDENT Patient has working utilities: all working DME: home oxygen, portable tanks, nebulizer from [facility] Follow-up physician's appointment after d/c: will be made hospitalist nurse director upon discharge Does patient want to access PORTAL?: no Discharge plan discussed withpatient, patient lives at home with , he states he is independent in adls and ambulation, he has home oxygen and portable tanks and a nebulizer, patient was recently in the hospital, discussed with him a short term usp for rehab prior to going back home, patient declines, also discussed with him VNA and he also declines this, case manaegement will follow. ROHAN ESCOBAR
[2018-11-05 12:00] VITALS: BP 133/56
[2018-11-05 16:00] VITALS: BP 118/64
[2018-11-05 19:36] VITALS: BP 108/68
--- NOTE | 2018-11-05 23:06 | NUR ---
24 HR chart check completed.
[2018-11-06] VITALS: BP 103/62
[2018-11-06 06:40] LABS: HEMATOCRIT 33.7 % (42.0-52.0); HEMOGLOBIN 10.6 g/dl (14.0-18.0); LYMPH % 10.9 % (27.0-41.0); MEAN CELL VOLUME 104.3 fl (80.0-94.0); MEAN CORPUSCULAR HGB 32.8 pg (27.0-31.0); MEAN CORPUSCULAR HGB CONC 31.5 g/dl (33.0-37.0); MEAN PLATELET VOLUME 9.3 fl (9.6-12.3); MONO # 0.4 10*3/uL (0.1-1.0); MONO % 4.5 % (3.0-9.0); NEUT # 7.9 10*3/uL (2.3-7.9); NEUT % 84.2 % (47.0-73.0); PLATELET COUNT AUTOMATED 195 10*3/uL (130-400); RED BLOOD COUNT 3.23 10*6/uL (4.50-5.90); RED CELL DISTRI WIDTH 13.3 % (0-14.5); WHITE BLOOD COUNT 9.4 10*3/uL (4.8-10.8)
[2018-11-06 06:58] LABS: BUN 20 mg/dl (7-24); CHLORIDE 107 mmol/L (98-107); CREATININE 0.94 mg/dL (0.70-1.30); POTASSIUM 4.6 mmol/L (3.5-5.1); SODIUM 139 mmol/L (136-145)
--- NOTE | 2018-11-06 09:00 | NUR ---
case management visit with patient again discussed with him VNA and he again declines, patient will be going home when able and denies any home needs
[2018-11-06 12:00] VITALS: BP 116/66
[2018-11-06 16:00] VITALS: BP 113/67
--- NOTE | 2018-11-06 16:01 | NUR ---
PATIENT IS NOT EXPERIENCING ANY DISCOMFORT. NO SYMPTOMS. CALL LIGHT WITHIN REACH, RESP EASY.
--- NOTE | 2018-11-06 16:01 | NUR ---
PATIENT EXPERIENCED A SMALL RUN OF VTACH. STRIP IN CHART.
[2018-11-06 20:00] VITALS: BP 119/61
--- NOTE | 2018-11-06 22:04 | NUR ---
24 HR chart check completed.
[2018-11-07] VITALS: BP 108/67
[2018-11-07 06:16] LABS: HEMATOCRIT 37.1 % (42.0-52.0); HEMOGLOBIN 11.9 g/dl (14.0-18.0); LYMPH # 1.2 10*3/uL (1.3-4.4); LYMPH % 14.7 % (27.0-41.0); MEAN CELL VOLUME 104.2 fl (80.0-94.0); MEAN CORPUSCULAR HGB 33.4 pg (27.0-31.0); MEAN CORPUSCULAR HGB CONC 32.1 g/dl (33.0-37.0); MEAN PLATELET VOLUME 8.9 fl (9.6-12.3); MONO # 0.4 10*3/uL (0.1-1.0); MONO % 5.2 % (3.0-9.0); NEUT # 6.3 10*3/uL (2.3-7.9); NEUT % 79.6 % (47.0-73.0); PLATELET COUNT AUTOMATED 194 10*3/uL (130-400); RED BLOOD COUNT 3.56 10*6/uL (4.50-5.90); RED CELL DISTRI WIDTH 13.2 % (0-14.5); WHITE BLOOD COUNT 7.9 10*3/uL (4.8-10.8)
[2018-11-07 06:40] LABS: BUN 20 mg/dl (7-24); CHLORIDE 104 mmol/L (98-107); CREATININE 0.89 mg/dL (0.70-1.30); POTASSIUM 4.3 mmol/L (3.5-5.1); SODIUM 139 mmol/L (136-145)
--- NOTE | 2018-11-07 09:00 | NUR ---
case management visits with patient, again discussed with him DME he has at home, patient states he has home oxygen, but he had had it stored in his shed, hasn't used it for years. patient states he feels he will need to start using it again. educated him that he will need to qualify for home oxygen and respiratory therapy will do this. patient denies any other needs at this time
--- NOTE | 2018-11-07 09:45 | NUR ---
HOME O2 ASSESSMENT: PRE BP 108/67, HR 88, RR 24, PULSE OX 86% ON ROOM AIR AT REST. PATIENT APPEARED VERY SHORT OF BREATH. PLACED 3 L/M ON PATIENT, SAT >95% AT REST, SLOW RECOVERY. AMBULATED PATIENT APPROX 12 FT, UNABLE TO WALK ANY LONGER AT THIS TIME. POST BP: 110/93, HR 88, RR 20, PULSE OX 98% ON 3 L/M AT REST. RN AND HOSPITALIST RN NOTIFIED.
[2018-11-07 12:00] VITALS: BP 127/75
[2018-11-07 16:00] VITALS: BP 117/63
[2018-11-07 20:00] VITALS: BP 115/68
[2018-11-07 20:20] VITALS: BP 112/62
--- NOTE | 2018-11-07 20:27 | NUR ---
PT RESTING IN BED, EYES OPEN ALERT ORIENTED AND PLEASANT MOOD. BLOOD PRESSUR OBTAINED, 112/62. RESPIRATIONS EASY AND UNLABORED ON SUPPLEMENTAL OXYGEN VIA NC. ALL NEEDS CURRENTLY MET. ALL SAFETY MEASURES IN PLACE. CALL LIGHT IN REACH.
[2018-11-08] VITALS: BP 117/76
[2018-11-08 06:15] LABS: BASO % 0.1 % (0.0-1.0); HEMATOCRIT 36.9 % (42.0-52.0); HEMOGLOBIN 11.5 g/dl (14.0-18.0); LYMPH # 1.2 10*3/uL (1.3-4.4); LYMPH % 15.3 % (27.0-41.0); MEAN CELL VOLUME 103.9 fl (80.0-94.0); MEAN CORPUSCULAR HGB 32.4 pg (27.0-31.0); MEAN CORPUSCULAR HGB CONC 31.2 g/dl (33.0-37.0); MEAN PLATELET VOLUME 9.4 fl (9.6-12.3); MONO # 0.5 10*3/uL (0.1-1.0); MONO % 5.8 % (3.0-9.0); NEUT % 78.3 % (47.0-73.0); PLATELET COUNT AUTOMATED 196 10*3/uL (130-400); RED BLOOD COUNT 3.55 10*6/uL (4.50-5.90); RED CELL DISTRI WIDTH 13.1 % (0-14.5); WHITE BLOOD COUNT 7.7 10*3/uL (4.8-10.8)
[2018-11-08 06:42] LABS: BUN 21 mg/dl (7-24); CHLORIDE 102 mmol/L (98-107); CREATININE 0.93 mg/dL (0.70-1.30); POTASSIUM 4.3 mmol/L (3.5-5.1); SODIUM 136 mmol/L (136-145)
[2018-11-08 12:00] VITALS: BP 125/76
[2018-11-08] MEDS ORDERED: PREDNISONE10 MG PO (13:08)
[2018-11-08] MEDS ORDERED: LEVAQUIN500 M2 PO (13:08)
--- NOTE | 2018-11-08 15:00 | NUR ---
Contacted Dr. Hogan because patient seemed anxious and was having difficulty breathing. Physician followed up immediately.
--- NOTE | 2018-11-08 15:19 | NUR ---
Called RT per Dr. Hogan for breathing treatment.
--- NOTE | 2018-11-08 15:21 | NUR ---
Contacted nursing service supervisor to update her on patients discharge being cancelled.
[2018-11-08 16:00] VITALS: BP 129/70
[2018-11-08 20:00] VITALS: BP 124/69
--- NOTE | 2018-11-08 20:00 | NUR ---
IV started to LUE with #24 protective cath after 2 attempts. Site prepped with Chloroprep. Sterile dressing applied. Patient tolerated procedure well. No fluids running through site at this time, flushing with ease, good blood return. MALCOLM MORALES
[2018-11-09] VITALS: BP 112/62
--- NOTE | 2018-11-09 06:15 | NUR ---
PT RESTING IN BED, NO S/S OF DISTRESS NOTED. RESPIRATIONS EASY AND UNLABORED ON 2L NC. WILL CONTINUE TO MONITOR. CALL LIGHT IN REACH.
--- NOTE | 2018-11-09 07:42 | NUR ---
24 HR chart check completed.
[2018-11-09 08:00] VITALS: BP 114/72
--- NOTE | 2018-11-09 09:15 | NUR ---
SITTING UP IN BED. NO DISTRESS NOTED. RESPIRATIONS EASY. LUNGS DIMINISHED WITH LEFT SIDED INSPIRATORY WHEEZES. PULSE OX 100% 2L. LOOSE PRODUCTIVE COUGH. OFFERED AND EDUCATED REGARDING TEDS, DECLINED. CALL LIGHT WITHIN REACH. NO VOICED COMPLAINTS
--- NOTE | 2018-11-09 09:25 | NUR ---
DR QUISPE HERE TO SEE PATIENT AND DISCUSS PLAN OF CARE. PATIENT OK FOR D/C IF RIDE AVAILABLE. PATIENT TO CHECK WITH FAMILY
[2018-11-09 12:00] VITALS: BP 123/66
--- NOTE | 2018-11-09 12:13 | NUR ---
DR QUISPE PRESENT ON FLOOR. INFORMED PATIENT ABLE TO FIND RIDE FOR D/C
--- NOTE | 2018-11-09 14:10 | NUR ---
Discharge instructions reviewed with patient/family. Patient receptive and verbalizes understanding. Written instructions given to patient/family. PATIENT TRANSPORTED OFF FLOOR VIA WC. ABIMAEL BURRELL
== END 2018-11-09 14:10 | disposition home or self-care (01) | DRG 871 ==
LOC: ED 18:04 → 5E 19:42 → EDHOLD 19:42 → 5E 20:33
PROVIDERS: Emergency Medicine; Family Medicine; Internal Medicine; ADMIT Internal Medicine
DX: A41.9 Sepsis, unspecified organism (principal); J18.9 Pneumonia, unspecified organism; J96.21 Acute and chronic respiratory failure with hypoxia; J44.1 Chronic obstructive pulmonary disease with (acute) exacerbation; E44.0 Moderate protein-calorie malnutrition; J44.0 Chronic obstructive pulmonary disease with (acute) lower respiratory infection; Z68.1 Body mass index [BMI] 19.9 or less, adult; J20.9 Acute bronchitis, unspecified; D53.9 Nutritional anemia, unspecified; F12.90 Cannabis use, unspecified, uncomplicated; M19.90 Unspecified osteoarthritis, unspecified site; J30.2 Other seasonal allergic rhinitis; I10 Essential (primary) hypertension; E55.9 Vitamin D deficiency, unspecified; F17.210 Nicotine dependence, cigarettes, uncomplicated; Z88.0 Allergy status to penicillin; Z71.6 Tobacco abuse counseling; Z79.51 Long term (current) use of inhaled steroids; Z99.81 Dependence on supplemental oxygen; Z79.899 Other long term (current) drug therapy

== ENCOUNTER 2018-11-09 21:26 | Inpatient (IN) | payer MEDICARE ==
[~2018-11-09] VITALS: Ht 162.6 cm; Wt 44.7 kg
--- NOTE | ~2018-11-09 | PR ---
[place], [place] PROGRESS NOTE NAME: CAIN HUBBARD [facility] #: [id number] UNIT #: [id number] ROOM: 416 DOCTOR: MAZIN COTE MD BIRTHDATE: [birth year] DOS: 11/13/2018 CARDIOLOGY PROGRESS NOTE SUBJECTIVE: The patient was seen at his bedside today for followup of his atypical chest pain and mildly elevated troponin. He was seen during his echocardiogram. I looked at the preliminary images and they show normal left ventricular size, wall motion and systolic function. There is no evidence for any previous myocardial scarring. The right heart is enlarged consistent with his underlying lung disease. He had no chest pain overnight. He tolerated his bronchoscopy and is breathing better today. The report of the bronchoscopy was that a large amount of mucus plugging was removed. PHYSICAL EXAMINATION: VITAL SIGNS: Today, his pulse is 78 and regular, blood pressure is 108/68. He weighs 44.6 kg and has a body mass index of 16.9. He is afebrile. NECK: Supple. He has no jugular distention. Carotids are full. LUNGS: Respirations are unlabored. He has markedly decreased breath sounds with expiratory prolongation bilaterally. There is no presacral edema or chest wall tenderness. HEART: Has a regular rhythm with distant tones. He has a fourth heart sound, but no third heart sound. ABDOMEN: Soft and normally active. EXTREMITIES: Showed no edema. IMPRESSION: 1. Acute exacerbation of chronic obstructive lung disease. 2. Chronic respiratory failure and hypoxemia. 3. Long-term and ongoing cigarette abuse. 4. Atypical chest pain, most likely musculoskeletal or GI in origin. 5. Mild elevation in troponin. This is most likely due to a type 2 myocardial injury caused by his increased work of breathing, hypoxemia, etc. PLAN: I will read the full echo report when it is available, but thus far, it appears as though he has no evidence for left ventricular dysfunction or previous myocardial injury. As noted yesterday, the patient tells me that he would refuse to do a stress test and at this point, I do not see any strong indication to push it. I would recommend risk factor modification, especially cigarette cessation. Further recommendations will be forthcoming after the echo has been reviewed in detail. I thank the hospitalist physicians for asking our advice regarding his care. [place], [place] PROGRESS NOTE NAME: CAIN HUBBARD UNIT #: [id number] ROOM: 416 DOCTOR: MAZIN COTE MD BIRTHDATE: [birth year] MAZIN COTE MD CM:PNTRANS [id number] MAZIN COTE MD 11/13/18 1153 interface
--- NOTE | ~2018-11-09 | PR ---
[place], [place] PROGRESS NOTE [id number] UNIT #: [id number] ROOM: 416 DOCTOR: GARCIA CHAND MD BIRTHDATE: [birth year] DOS: 11/12/2018 SUBJECTIVE: The patient was noted comfortable at this time, resting on the bed. He has been planned for bronchoscopy done today, which was rescheduled from yesterday. He is n.p.o. for bronchoscopy. Denies chest pain, hemoptysis. Wheezing was noted at time. Shortness of breath occurs with exertion, not noted at rest, using oxygen supplementation nasal cannula. Continue other reason of treatment on the medical management. Denies any pain or edema of the lower extremities. Remaining systems were reviewed. They were noted all negative. PHYSICAL EXAMINATION: GENERAL: The patient currently comfortable, resting in the bed, using oxygen supplement nasal cannula. VITAL SIGNS: Normal temperature, respiratory rate of 20-16, heart rate 82, blood pressure 140/61. The pulse oxygen saturation on 2.5 liters nasal cannula 95% saturation. HEENT: Examination shows head was atraumatic. Eyes nonicterus. NECK: Supple. CARDIOVASCULAR: S1, S2 is audible. LUNGS: Noted decreased breath sounds, expiratory wheezing, no crackles. ABDOMEN: Soft, nontender. Bowel sounds present. EXTREMITIES: No acute edema. MUSCULOSKELETAL: Without acute deformities. CENTRAL NERVOUS SYSTEM: Cranial nerves 2-12 intact. SKIN: Visible skin without lesions or rashes. LABORATORY DATA: CBC today: WBC count normal, hemoglobin 12.3, platelet count was normal. MCV 101. BMP this morning, the patient as BUN 31, creatinine was normal. IMPRESSION: 1. The patient who has been currently noted without any changes with ongoing acute exacerbation of chronic obstructive pulmonary disease, acute tracheobronchitis. For bronchoscopy suspected mucous impaction major airways. 2. Chronic nicotine dependence, mildly abnormal troponin, significance unknown. PLAN OF MANAGEMENT: Proceed with fiberoptic bronchoscopy as planned. No change in treatment. Continue steroids, bronchodilators, Mucinex, flutter valve and other treatments. Any modification treatment if necessary will be done after bronchoscopy. [place], [place] PROGRESS NOTE NAME: CAIN HUBBARD UNIT #: [id number] ROOM: 416 DOCTOR: GARCIA CHAND MD BIRTHDATE: [birth year] GARCIA BACON MD CM:KIERANTRANS [phone] GARCIA PERRY MD 11/24/18 1032 interface
--- NOTE | ~2018-11-09 | EKG ---
[place], [place] ELECTROCARDIOGRAM REPORT NAME: CAIN HUBBARD UNIT #: [id number] ROOM: 416 DOCTOR: KACEY DRAFT REPORT BIRTHDATE: [birth year] [facility] Test Date: 2018-11-09 Test Time: 21:42:41 Pat Name: CAIN HUBBARD Department: Room: 416 Gender: M Print Press Operator: Coby Preston : 1955 Requested By: NATHANIEL ALEGRE Order Number: [id number] Reading MD: Bari Acharya MD Measurements Intervals [place] Rate: 87 P: 89 [place]: 115 QRS: 82 QRSD: 76 T: 41 QT: 353 QTc: 425 Interpretive Statements Sinus rhythm Borderline short [place] interval Biatrial enlargement Borderline right axis deviation Anteroseptal infarct, old Minimal ST elevation, lateral leads Compared to ECG 11/04/2018 18:23:42 No significant change Electronically Signed On 11-10-2018 15:48:06 PST by Bari Acharya MD CM:EKGRPT:ELECTROCARDIOGRAM REPORT 1548 NATHANIEL GUPTA DRAFT REPORT NATHANIEL ALEGRE DO
--- NOTE | ~2018-11-09 | CON ---
[place], [place] REPORT OF CONSULTATION NAME: CAIN HUBBARD [facility] #: [id number] UNIT #: [id number] ROOM: 416 DOCTOR: ARLEEN PERRY MDGARCIA BIRTHDATE: [birth year] DOS: 11/10/2018 PULMONARY CONSULTATION, EVALUATION, AND MANAGEMENT CONSULTATION REQUESTED BY: Hospitalist service. REASON FOR CONSULTATION: To assess the patient for ongoing acute exacerbation of chronic obstructive pulmonary disease. HISTORY OF PRESENT ILLNESS: This is a 62-year-old white male patient, who has been admitted to the hospital in short period of time this month. The patient has been treated for acute exacerbation of COPD. The patient was discharged home on 11/08/2018, but could not ride and went home yesterday. He went home yesterday morning. The patient returned back in the evening of yesterday as the patient is complaining of increased shortness of breath. He was noted in usual state of health with improving respiratory symptoms. He has reported symptoms of moderate cough without any sputum expectoration, complaining that the symptoms of shortness of breath has been increased. He denies symptoms of chest pain with that. The patient does report symptoms of shortness of breath, which occurs with exertion, sometimes at rest as well. He denies symptoms of chest pain or hemoptysis. He has been readmitted to the hospital, started on the treatment for acute exacerbation of chronic obstructive pulmonary disease, informed of the corticosteroids, bronchodilators, and other therapies. This morning, the patient stated partial relief of symptoms, denying that he has been smoke any cigarettes since he left the hospital for a few hours. PAST MEDICAL HISTORY: 1. COPD. 2. Essential hypertension. 3. Seasonal allergic rhinitis. 4. Vitamin D deficiency. 5. Generalized anxiety disorder. 6. Chronic hypoxic respiratory failure, previous use of oxygen is 2 liters by nasal cannula with exertion and sleep. PAST SURGICAL HISTORY: No major surgeries. CURRENT MEDICATIONS: The current medications, which has been administered on this hospitalization, use of Solu-Medrol 40 mg b.i.d., Lovenox 40 mg subcutaneous daily, albuterol sulfate 2.5 mg q.4 hours, Zofran, and p.r.n. use of Tylenol. DRUG ALLERGY HISTORY: NOTED ALLERGY TO PENICILLIN, CAUSING HIVES. SOCIAL HISTORY: The patient is and lives at home. Tobacco use noted, dated from teenager, 2 packs of cigarettes per day, stating not smoking any cigarettes at this time. No history of alcohol use or illicit drug use. FAMILY HISTORY: The patient's father from complication of COPD. Mother from complication of type 2 diabetes mellitus. [place], [place] [id number] #: [id number] ROOM: 416 DOCTOR: GARCIA CHAND MD BIRTHDATE: [birth year] REVIEW OF SYSTEMS: CONSTITUTIONAL SYMPTOMS: Fatigue and tiredness reported without any symptoms of fever or chills. EYES: Denies any burning, redness, or tenderness. EARS, NOSE, AND THROAT SYMPTOMS: No sore throat, hoarseness, otalgia, postnasal drainage, or epistaxis. CARDIOVASCULAR SYSTEM: Denies angina pain, edema, or pain of the lower extremities. GASTROINTESTINAL SYMPTOMS: No dysphagia, nausea, vomiting, diarrhea, abdominal pain, hematemesis, melena, or hematochezia. SKIN: Denies abnormal lesions or rashes. MUSCULOSKELETAL SYMPTOMS: No acute joint pain, redness, or tenderness. CENTRAL NERVOUS SYSTEM: No dizziness, headache, diplopia, or syncopal episode. Remaining systems were reviewed and they were noted all negative. PHYSICAL EXAMINATION: GENERAL: The patient is a 62-year-old male patient, who has been currently noted awake and alert without any acute distress. Height of 5 feet 4 inches, weight of 98 pounds, and BMI is 16.9. VITAL SIGNS: The patient has normal temperature, respiratory rate of 20-16, heart rate of 72-85, and blood pressure of 118/77-126/74. The pulse oxygen saturation recorded as 99% saturation on 100% oxygen supplementation. HEENT: On examination, head was atraumatic. Eyes nonicterus. NECK: Supple. CARDIOVASCULAR SYSTEM: S1, S2 audible. LUNGS: The patient was noted without any wheezing or crackles at the present time. Breaths are noted mildly diminished bilaterally. Scattered expiratory wheezing. ABDOMEN: Flat, soft, nontender. Bowel sounds present. EXTREMITIES: Without any edema. MUSCULOSKELETAL: Without any acute deformities. CENTRAL NERVOUS SYSTEM: Cranial nerves 2-12 intact. LABORATORY DATA: BMP this morning was reviewed and was normal. Troponin was normal this morning. CBC of the patient this morning, WBC count was normal, hemoglobin was 12.7, and platelet count was normal. IMAGING DATA: Chest x-ray that was done yesterday in the evening, hyperinflation of lung without any acute pulmonary infiltration. Lactic acid was 1.1 yesterday. IMPRESSION: 1. The patient has been currently admitted to the hospital with ongoing acute exacerbation of chronic obstructive pulmonary disease and acute respiratory symptoms since discharge from the hospital. 2. Moderate cough without any sputum expectoration. History of chronic heavy nicotine abuse. 3. Chronic hypoxic respiratory failure. 4. Low BMI. [place], [place] REPORT OF CONSULTATION NAME: CAIN HUBBARD UNIT #: [id number] ROOM: 416 DOCTOR: ARLEEN PERRY MD,GARCIA BIRTHDATE: [birth year] PLAN OF TREATMENT: The patient was assessed for therapeutic bronchoscopy, which will be planned to be done tomorrow morning to assess the current cough. Continue current dose of Solu-Medrol and other medical management as in progress. Usual care with additional treatment changes will be made based on the progression of the illness. Usual care. Other supportive therapy, plan of management, care plan, and therapies. Thanks for allowing me to participate in the care of this patient. GARCIA BACON MD CM:CONSTR:REPORT OF CONSULTATION 1137 11/24/18 1032 interface
--- NOTE | ~2018-11-09 | CON ---
[place], [place] REPORT OF CONSULTATION NAME: CAIN HUBBARD [facility] #: [id number] UNIT #: [id number] ROOM: 416 DOCTOR: MAZIN COTE MD BIRTHDATE: [birth year] DOS: 11/12/2018 REASON FOR CONSULTATION: Chest pain, elevated troponin. HISTORY OF PRESENT ILLNESS: The patient is a 62-year-old man who has a long history of heavy cigarette abuse. He does have severe COPD and is supposed to use home oxygen, although he is poorly compliant. He states that his oxygen saturations are almost always normal. He has had multiple hospitalizations recently for acute exacerbations of his obstructive lung disease manifested by cough and dyspnea. His chest x-rays; however, have not shown any infiltrates. The current admission began on 11/09/2018 within 24 hours of his discharge from his previous hospitalization. The patient denies any history of coronary disease. He states that he did have a stress test over 10 years ago that was unremarkable. He denies any history of myocardial infarction or stroke. During this hospitalization, he did have episodes of indigestion which mostly occurred at night. He states that they seemed to get better if he drinks water. He has not had antacids during this hospitalization. They are not exertional and not associated with worsening dyspnea or diaphoresis. His electrocardiograms do not show any acute changes, but his cardiac troponin levels have been elevated on this admission. The initial troponin was elevated at 0.092, alyssa to 0.129, fell to 0.064 and then alyssa to 0.330. We were therefore asked to comment on these changes and determine if his heart was the cause of any of his symptoms. PAST MEDICAL HISTORY: Includes: 1. Severe COPD. 2. Chronic respiratory failure with hypoxemia. 3. Dependence on supplemental oxygen at home; however, the patient is poorly compliant. 4. Essential hypertension. 5. Protein calorie malnutrition. 6. History of tonsillectomy. 7. Cachexia. MEDICATIONS: Prior to admission, fluticasone Diskus 250 mcg 1 puff q.12 hours, albuterol 2 puffs q.i.d. p.r.n., Anoro Ellipta inhaled daily, amlodipine 5 mg p.o. daily, vitamin D 1000 units daily, iron sulfate 325 mg daily, ibuprofen 800 mg t.i.d. p.r.n., levofloxacin 500 mg daily, Singulair 10 mg daily, omega 3 fish oil 1000 mg daily and prednisone 10 mg on a tapering dose schedule. ALLERGIES: PENICILLINS. FAMILY HISTORY: Both parents are . His mother of complications of diabetes and his father of complications of obstructive lung disease. REVIEW OF SYSTEMS: The patient denies diplopia or loss of vision. He is generally weak, but denies focal weakness. He denies lightheadedness or [place], [place] REPORT OF CONSULTATION NAME: CAIN HUBBARD UNIT #: [id number] ROOM: [facility] DOCTOR: MAZIN COTE MD BIRTHDATE: [birth year] syncope. He does get dyspneic with minimal exertion. He does have a nonproductive cough. He denies fevers or chills. He does have chronic orthopnea and tells me he cannot lay flat because of his breathing. He denies hemoptysis or hematemesis. He denies nausea or vomiting. He denies any change in bowel or bladder habits and denies blood in his stools or urine. He denies any peripheral edema. The remainder of the review of systems is negative except as noted above. The patient does admit to being slender his entire life, but is losing weight lately. SOCIAL HISTORY: The patient is . He continues to smoke about a half pack a day, although he smoked over 2 packs a day much of his life. He also uses marijuana. He drinks alcohol socially. PHYSICAL EXAMINATION: GENERAL: The patient is a slender, cachectic-appearing male who is awake, alert and oriented and in no acute distress. VITAL SIGNS: Pulse is 90 and regular, blood pressure is 103/68. He is afebrile. He weighs 44.6 kg and has a body mass index of 16.9. HEENT: Normocephalic and atraumatic. Extraocular muscles are intact. Sclerae are clear. Pupils equal, round, react to light. The oral mucosa is moist. Tongue is midline. NECK: Supple. He has no jugular distention or hepatojugular reflux. Carotids are full and I heard no bruits. He had no neck or supraclavicular masses. LUNGS: Respirations are unlabored at rest. He does have marked expiratory prolongation with markedly decreased breath sounds bilaterally. He does have scattered wheezes bilaterally. He has no presacral edema or chest wall tenderness. CARDIOVASCULAR: His heart has a regular rhythm. He has a fourth heart sound, but no third heart sound or obvious murmur. The PMI could not be felt. He has no precordial heave, lift or thrill. ABDOMEN: Soft and normally active without masses, organomegaly or bruits. EXTREMITIES: Very slender. Pedal pulses are palpable in his feet. There is no edema and he has no palpable cords or Homans sign. I reviewed his electrocardiograms, which shows sinus rhythm with poor precordial R-wave progression. He does have evidence for biatrial enlargement. There are nonspecific T-wave flattening. Troponin levels are as described above. White count is 10,200, hemoglobin 12.3. Sodium 137, potassium 4.3, BUN 31, creatinine 0.89. IMPRESSION: 1. Acute exacerbation of chronic obstructive lung disease. 2. Chronic obstructive lung disease with chronic respiratory failure and hypoxemia. 3. Long-term and ongoing cigarette abuse. 4. Atypical chest pain. 5. Mild elevation in troponin. The patient does not have a dramatic rise and fall pattern that would suggest an acute coronary event. Clinically, it seems that this is most likely to be a type 2 myocardial injury due to work of [place], [place] REPORT OF [id number] #: [id number] ROOM: 416 DOCTOR: MAZIN COTE MD BIRTHDATE: [birth year] breathing, hypoxemia, etc. Certainly, he does have risk factors for coronary artery disease; however, and coronary disease must at least be considered. PLAN: I will be getting an echocardiogram to assess left ventricular wall motion and function. I did speak to the patient about stress testing. He told me he could not walk for a stress test and did not want to have a medical stress test. He told me that in any case, he did not think he could lay flat for imaging. For now, I think that it would be reasonable just to do the echocardiogram. If it is totally normal, then no other workup would be required, although certainly risk factor modification is appropriate. If it shows regional wall motion abnormalities, I will have to discuss with him the possibility of further testing, which may even include catheterization. I thank the hospitalist physicians for asking our advice regarding his care. MAZIN COTE MD CM:CONSTR:REPORT OF CONSULTATION 1633 11/13/18 0107 interface
--- NOTE | ~2018-11-09 | PROC NOTE ---
[place], [place] PROCEDURE NOTE [id number] #: [id number] ROOM: 416 DOCTOR: ARLEEN PERRY MD,GARCIA BIRTHDATE: [birth year] DOS: 11/12/2018 PREOPERATIVE DIAGNOSES: Severe cough with wheezing and shortness of breath, now resolving with frequent hospitalization, suspected mucous impaction in major airways. POSTOPERATIVE DIAGNOSES: Very severe mucus impaction noted with large plugs of the mucus were removed from endobronchial tree for the patient bilaterally, much greater on the left than the right side. There were no endobronchial obstructive lesions. PROCEDURE DESCRIPTION: Informed consent obtained with the patient. The patient was given conscious sedation. During conscious sedation, airway introduced into the mouth. Bronchoscope advanced to the airway into laryngeal area. Epiglottis and vocal cords were seen. Vocal cord was noted symmetrical movements. Bronchoscope was advanced to the vocal cords into the tracheal lumen noted with a very thick mucus secretion. The patient with minimal secretions suctioned out to the [place] level. The patient noted several plugs of thick mucus in endobronchial tree causing impaction, multiple endobronchial subsegments including left lingula left lower lobe, right upper, right middle and the right lower lobe. All the plugs of mucus extracted from endobronchial tree with the help of normal saline wash, sent for culture. Findings of tracheobronchitis were noted. Procedure well tolerated by the patient. Postoperative findings will be discussed with the patient once the patient recovers the effects of acute sedation. GARCIA BACON MD CM:PROCNOTE:PROCEDURE NOTE [id number] GARCIA PERRY MD
--- NOTE | ~2018-11-09 | PR ---
[place], [place] PROGRESS NOTE NAME: CAIN HUBBARD [facility] #: [id number] UNIT #: [id number] ROOM: 416 DOCTOR: ARLEEN PERRY MD,GARCIA BIRTHDATE: [birth year] DOS: 11/11/2018 PULMONARY PROGRESS NOTE SUBJECTIVE: The patient was noted comfortable at this time without any acute distress, has not been noted any symptoms of chest pain, fever or chills. The coughing was still noted with wheezing and shortness of breath intermittently. The patient was scheduled for bronchoscopy to be done today. The bronchoscopy was canceled because of the scheduling conflict. OBJECTIVE: VITAL SIGNS: Normal temperature, respiratory rate 19, heart rate of 82, blood pressure 134/76. HEENT: No acute change. NECK: Supple. CARDIOVASCULAR: S1, S2 is audible. LUNGS: The patient was noted without any crackles, wheezing were noted. ABDOMEN: Soft, nontender. Bowel sounds present. EXTREMITIES: No acute change. IMPRESSION: The patient with ongoing acute exacerbation of chronic obstructive pulmonary disease, acute tracheobronchitis, coughing, wheezing and other symptoms unchanged in the last 24 hours. PLAN OF MANAGEMENT: The patient's bronchoscopy scheduled again to be done tomorrow morning. In the meantime, continue other therapy, plan of management care. Usual care with additional treatment changes based on progression of the illness. GARCIA BACON MD CM:PNTRANS 1012 1157 GARCIA PERRY MD 11/11/18 1158 interface
--- NOTE | ~2018-11-09 | EKG ---
[place], [place] ELECTROCARDIOGRAM REPORT NAME: CAIN HUBBARD UNIT #: [id number] ROOM: 416 DOCTOR: KACEY DRAFT REPORT BIRTHDATE: [birth year] [facility] Test Date: 2018-11-12 Test Time: 09:04:12 Pat Name: CAIN HUBBARD Department: Room: 416 1 Gender: M Photographic Process Attendant: Suze Dhaliwal : 1955 Requested By: WAYNE PARK Order Number: [id number] Reading MD: Bari Acharya MD Measurements Intervals [place] Rate: 83 P: 84 [place]: 115 QRS: 77 QRSD: 70 T: -27 QT: 357 QTc: 420 Interpretive Statements Sinus rhythm Borderline short [place] interval Borderline T wave abnormalities Compared to ECG 11/09/2018 21:42:41 T-wave abnormality now present Atrial abnormality no longer present Myocardial infarct finding no longer present ST (T wave) deviation no longer present Electronically Signed On 11-12-2018 9:13:16 PST by Bari Acharya MD CM:EKGRPT:ELECTROCARDIOGRAM REPORT 3 2 WAYNE PARK EPIPHANY DRAFT REPORT WAYNE PARK
--- NOTE | ~2018-11-09 | PR ---
[place], [place] PROGRESS NOTE NAME: CAIN HUBBARD [facility] #: [id number] UNIT #: [id number] ROOM: 416 DOCTOR: ARLEEN PERRY MD,GARCIA BIRTHDATE: [birth year] DOS: 11/13/2018 SUBJECTIVE: He has been doing very well after bronchoscopy with significant obstruction noted. There were no symptoms of chest pain, fever or chills or hemoptysis. OBJECTIVE: VITAL SIGNS: For the patient which has been recorded showed normal temperature, respiratory rate 18, heart rate 78, blood pressure 108/68. Pulse oxygen saturation on 2.5 liters nasal cannula 100% saturation. HEENT: Head was atraumatic. Eyes nonicterus. NECK: Supple. CARDIOVASCULAR: S1, S2 audible. LUNGS: The patient noted improvement in air entry, reduction in the wheezing. There were no crackles. ABDOMEN: Soft, nontender. Bowel sounds are present. EXTREMITIES: No acute change. LABORATORY DATA: Other labs on this patient, culture of the bronchial washing noted normal livia. Gram stain noted with many white blood cells, few epithelial cells, few gram-positive cocci in pairs and chains. IMPRESSION: 1. Resolving acute exacerbation of chronic obstructive pulmonary disease, gradually. 2. Debility muscle deconditioning secondary to acute exacerbation of chronic obstructive pulmonary disease, frequent hospitalization. 3. Nicotine dependence. PLAN OF MANAGEMENT: Continuation of current plan of management, transferred to correction facility, but accepting the patient on availability of the bed. No change in the treatment otherwise needs to be done today. GARCIA BACON MD CM:PNTRANS 1118 [id number] GARCIA PERRY MD 11/24/18 1035 interface
[2018-11-09 21:26] VITALS: BP 113/80
[~2018-11-09 21:26] MED LIST changes: +FEROSUL325 MG PO
[2018-11-09 22:01] VITALS: BP 124/74
[2018-11-09 22:07] LABS: BASO % 0.1 % (0.0-1.0); EOS % 0.1 % (1.0-4.0); HEMATOCRIT 39.9 % (42.0-52.0); HEMOGLOBIN 13.2 g/dl (14.0-18.0); LYMPH # 0.6 10*3/uL (1.3-4.4); MEAN CELL VOLUME 101.3 fl (80.0-94.0); MEAN CORPUSCULAR HGB 33.5 pg (27.0-31.0); MEAN CORPUSCULAR HGB CONC 33.1 g/dl (33.0-37.0); MEAN PLATELET VOLUME 9.3 fl (9.6-12.3); MONO # 0.5 10*3/uL (0.1-1.0); MONO % 4.9 % (3.0-9.0); NEUT # 9.9 10*3/uL (2.3-7.9); NEUT % 89.4 % (47.0-73.0); PLATELET COUNT AUTOMATED 213 10*3/uL (130-400); RED BLOOD COUNT 3.94 10*6/uL (4.50-5.90); WHITE BLOOD COUNT 11.1 10*3/uL (4.8-10.8)
[2018-11-09 22:23] LABS: ALBUMIN 3.6 gm/dl (3.1-4.5); ALKALINE PHOSPHATASE 42 U/L (45-117); BUN 26 mg/dl (7-24); CHLORIDE 99 mmol/L (98-107); CREATININE 0.97 mg/dL (0.70-1.30); POTASSIUM 4.6 mmol/L (3.5-5.1); SGOT/AST 23 IU/L (3-35); SGPT/ALT 33 U/L (12-78); SODIUM 134 mmol/L (136-145); TOTAL PROTEIN 6.5 gm/dL (6.4-8.2)
[2018-11-09 22:26] LABS: TROPONIN I 0.092 ng/ml (<0.045)
--- NOTE | 2018-11-09 22:26 | NUR ---
CRITICAL TROP 0.092, NOTIFIED.
[2018-11-09 23:04] VITALS: BP 105/72
[2018-11-09 23:20] VITALS: BP 118/77
--- NOTE | 2018-11-09 23:20 | NUR ---
A 62, admitted to 4E, under the services of ZEUS Henley DO with a diagnosis of COPD EXACERBATION, ELEVATED TROPONIN. Chief complaint is SHORTNESS OF BREATH. Patient arrived via stretcher from ER. Monitor applied. Initial assessment completed. Vital signs taken and recorded. ZEUS HENLEY DO notified of admission to the unit. Orders received. See assessment for past medical history, medications and allergies. Patient and/or family oriented to unit. visitation policy reviewed. Clothing/patient valuable form completed. JENA FLORES
[2018-11-10] VITALS: BP 118/17; BP 118/77
--- NOTE | 2018-11-10 00:10 | NUR ---
DR. CAUSEY NOTIFIED THAT PATIENT'S HOME MED REQ IS UP TO DATE.
--- NOTE | 2018-11-10 00:55 | NUR ---
NOTIFIED DR. CAUSEY OF CRITICAL TROPONIN, 0.116. NO NEW ORDERS. WILL CONTINUE TO MONITOR.
--- NOTE | 2018-11-10 00:59 | NUR ---
DR. CAUSEY NOTIFIED OF CRITICAL TROPONIN OF 0.116.
--- NOTE | 2018-11-10 03:45 | NUR ---
DR. CAUSEY NOTIFIED OF CRITICAL TROPONIN OF 0.129.
[2018-11-10 06:31] LABS: EOS % 0.4 % (1.0-4.0); HEMATOCRIT 37.9 % (42.0-52.0); HEMOGLOBIN 12.3 g/dl (14.0-18.0); LYMPH # 2.1 10*3/uL (1.3-4.4); LYMPH % 22.2 % (27.0-41.0); MEAN CELL VOLUME 101.9 fl (80.0-94.0); MEAN CORPUSCULAR HGB 33.1 pg (27.0-31.0); MEAN CORPUSCULAR HGB CONC 32.5 g/dl (33.0-37.0); MEAN PLATELET VOLUME 9.2 fl (9.6-12.3); MONO # 0.6 10*3/uL (0.1-1.0); MONO % 6.2 % (3.0-9.0); NEUT # 6.5 10*3/uL (2.3-7.9); NEUT % 70.9 % (47.0-73.0); PLATELET COUNT AUTOMATED 191 10*3/uL (130-400); RED BLOOD COUNT 3.72 10*6/uL (4.50-5.90); WHITE BLOOD COUNT 9.2 10*3/uL (4.8-10.8)
--- NOTE | 2018-11-10 06:52 | NUR ---
DR. CAUSEY NOTIFIED OF CRITICAL TROPONIN OF O.119.
[2018-11-10 06:55] LABS: BUN 21 mg/dl (7-24); CHLORIDE 100 mmol/L (98-107); SODIUM 137 mmol/L (136-145)
[2018-11-10 06:56] LABS: CREATININE 0.85 mg/dL (0.70-1.30); PHOSPHOROUS 2.9 mg/dL (2.5-4.9)
--- NOTE | 2018-11-10 08:03 | NUR ---
Shift chart check completed.
[2018-11-10 08:40] VITALS: BP 126/74
--- NOTE | 2018-11-10 08:59 | NUR ---
ASSESSMENT COMPLETE, PT STATES NO NEEDS AT THIS TIME. STATE NO CHEST PAIN, SOME "UNCOMFORTABLE FEELING IN CHEST WHEN COUGHING" OXYGEN AT 2 LITERS, SOME SHORTNESS OF BREATH NOTED WITH EXERTION
--- NOTE | 2018-11-10 09:00 | NUR ---
Nuclear Criticality Safety Engineer in to talk to patient. Patient states lives at home with . There are few steps in the home. Physician: laura chavez [facility]: [facility] Home health services: none Patient's level of ADLs: MINIMAL ASSIST Patient has working utilities: all working DME: home oxygen and portable tanks Follow-up physician's appointment after d/c: will be made by hospitalist nurse director upon discharge Does patient want to access PORTAL?: no Discharge plan discussed with patient, patient lives at home with his , he has had numerous hospital visits in the past few months, patient has refused a SNF and home health. discussed with him a short term jail for rehab and respiratory rehab prior to going back home, patient was inagreement with this, he stated he would like to go to [facility] as first choice, patient didn't have a second choice at this time, meeting/event planner will make referral to [facility] at this time, case management will follow. ROHAN ESCOBAR
--- NOTE | 2018-11-10 09:46 | NUR ---
DR. BACON AWARE OF CONSULT, HE HAS ALREADY SEEN THE PATIENT. HE IS GOING TO ORDER A BRONCH FOR T[place]OW
--- NOTE | 2018-11-10 10:03 | NUR ---
NOTIFIED RESIDENT DR. PARK THAT HOME MEDICATIONS NEEDED ORDERED, SHE STATED THEY WILL LOOK AT THEM AFTER LECTURE.
[2018-11-10 12:00] VITALS: BP 118/70
--- NOTE | 2018-11-10 12:07 | NUR ---
Occupational Therapy evaluation completed on 4th floor with full eval to follow. Precautions: SOB, fall risk, IV site. Recommend SNF. Work on standing balance and dynamic sitting balance for ADL tasks, dressing while standing (as needed) etc. Low complexity level. Thank you for this referral, Joyce Marrero OTR/L
--- NOTE | 2018-11-10 13:30 | NUR ---
PHYSICAL THERAPY 1:1 Time: Pain on a scale of 0-10 > Prior to treatment: 0/10 Post treatment: 0/10 Progress note: Pt seen on this date for initial physical therapy assessment; please refer to pt's chart for details. Pt performed supine <-> sit with I. He sat at EOB with SOB with F+/G- balance. He performed sit <-> stand with CGA. He ambulated 20' x 3 with O2 and CGA. He demonstrated slowed gait speed and shortened strides but did not require assistive device. He demonstrated F/F+ balance in standing. His SaO2 never dropped below 97% with the 2 L O2 NC. JACKIE ORLANDO PT
--- NOTE | 2018-11-10 14:56 | NUR ---
Patient requesting referral to [facility] for short term skilled. Contacted facility and faxed referral, waiting on review/acceptance. Will require precert.
[2018-11-10 16:00] VITALS: BP 121/76
[2018-11-10 20:00] VITALS: BP 119/83
[2018-11-11] VITALS: BP 134/76
--- NOTE | 2018-11-11 02:09 | NUR ---
24 HR chart check completed.
[2018-11-11 05:28] LABS: HEMATOCRIT 39.2 % (42.0-52.0); HEMOGLOBIN 12.4 g/dl (14.0-18.0); MEAN CELL VOLUME 102.3 fl (80.0-94.0); MEAN CORPUSCULAR HGB 32.4 pg (27.0-31.0); MEAN CORPUSCULAR HGB CONC 31.6 g/dl (33.0-37.0); MEAN PLATELET VOLUME 9.2 fl (9.6-12.3); PLATELET COUNT AUTOMATED 181 10*3/uL (130-400); RED BLOOD COUNT 3.83 10*6/uL (4.50-5.90); WHITE BLOOD COUNT 10.6 10*3/uL (4.8-10.8)
[2018-11-11 05:37] LABS: ACT PARTIAL THROMBO TIME 21.1 SECONDS (20.8-31.5); INTERNATIONAL NORM RATIO 0.9 (2.0-3.5)
[2018-11-11 05:45] LABS: CHLORIDE 99 mmol/L (98-107); CREATININE 1.04 mg/dL (0.70-1.30); POTASSIUM 4.5 mmol/L (3.5-5.1); SODIUM 135 mmol/L (136-145)
[2018-11-11 05:48] LABS: BUN 31 mg/dl (7-24)
[2018-11-11 05:50] LABS: TROPONIN I 0.064 ng/ml (<0.045)
--- NOTE | 2018-11-11 05:52 | NUR ---
CALLED DR. RASHEED WITH CRITICAL TROPONIN 0.064 CALLED TO THE FLOOR BY LAB. NO NEW ORDERS.
[2018-11-11 06:30] LABS: PLATELET SUFFICIENCY NORMAL (NORMAL); TOTAL CELLS COUNTED 100 #CELLS
--- NOTE | 2018-11-11 07:42 | NUR ---
OT NOTE Pt was seen this A.M. 1:1 for 20 minute OT session. Upon arrival pt was supine in bed, pt identified by name and . Pt had no complaints at this time and presented to therapy with continous 2L-O2 via NC which he remained on throughout entire session. Pt transferred supine to sit EOB with supervision. While sitting EOB challenged pt's sitting balance while having him weight shift, cross midline, and bilateral integration for increased I and enhanced safety. Pt was able to maintain G- sitting balance throughout. Educated pt throughout on correcting his posture and pursed lip breathing to improve breathing, pt's SpO2 did not drop below 95% but was having reports of feeling SOB. Pt stated that correcting his posture helped. Pt then completed functional mobility into the bathroom with SBA while pt managed O2 line. While standing sink side pt doffed and donned new gown with SBA. Pt was educated throughout on safety with turns and slowing down due to having one LOB while turning that required Carline to correct. Pt returned to EOB where he transferred sit to supine with supervision. Pt was left supine in bed with call light in hand, tray table in place, and phone in reach. Continue with rec D/C plan to SNF. JESSIKA Hobson/Gato
--- NOTE | 2018-11-11 07:46 | NUR ---
Patient accepted to [facility] exemption complete. Precert started, waiting on auth.
--- NOTE | 2018-11-11 08:04 | NUR ---
pt sent to surgery via bed for bronchoscopy
--- NOTE | 2018-11-11 09:00 | NUR ---
case management visits with patient, patient will be going to [facility] when medically stable and an insurance precert is obtained, case management will follow
--- NOTE | 2018-11-11 09:00 | NUR ---
PT DID NOT HAVE BRONCHOSCOPY TODAY, WILL BE RESCHEDULED FOR TOMORROW 11/12/18
[2018-11-11 10:29] VITALS: BP 112/66
--- NOTE | 2018-11-11 11:24 | NUR ---
IV LEFT AC BLEDDING AND PAINFUL WHILE IV ANTIBIOTIC INFUSING, IV D/C. NEW IV PLACED IN LEFT UPPER ARM #20, GOOD BLOOD RETURN, FLUSHED WITHOUT DIFFICULTY, PT TOELRATED WELL
[2018-11-11 12:00] VITALS: BP 110/84
--- NOTE | 2018-11-11 14:09 | NUR ---
PHYSICAL THERAPY Patient agrees to therapy session. Patient was identified by name and . Patient performed all transfers with SBA. Patient is on 4 liters of spO2 VIA NASAL CANULA. Patient ambulated 200' x 1 with no assistive device and close supervision. Patient was 1:1 with this ELECTROLYSIS NEEDLE OPERATOR for 15 minutes total. LINWOOD NEGRETE PTA
[2018-11-11 16:00] VITALS: BP 106/71
[2018-11-11 20:00] VITALS: BP 100/69
--- NOTE | 2018-11-11 20:55 | NUR ---
PT. C/O HAVING SOME MILD HEARTBURN AND WANTED SOMETHING FOR THIS. CALLED DR. RASHEED AND ORDER RECEIVED.
[2018-11-12] VITALS (9 sets, daily range): BP systolic 91–162; BP diastolic 60–90
--- NOTE | 2018-11-12 02:43 | NUR ---
24 HR chart check completed.
[2018-11-12 05:39] LABS: BUN 31 mg/dl (7-24); CHLORIDE 101 mmol/L (98-107); CREATININE 0.89 mg/dL (0.70-1.30); POTASSIUM 4.3 mmol/L (3.5-5.1); SODIUM 137 mmol/L (136-145)
[2018-11-12 05:59] LABS: TROPONIN I 0.245 ng/ml (<0.045)
[2018-11-12 06:00] LABS: BASO % 0.1 % (0.0-1.0); EOS % 0.1 % (1.0-4.0); HEMATOCRIT 37.5 % (42.0-52.0); HEMOGLOBIN 12.3 g/dl (14.0-18.0); LYMPH # 0.8 10*3/uL (1.3-4.4); LYMPH % 8.3 % (27.0-41.0); MEAN CELL VOLUME 101.4 fl (80.0-94.0); MEAN CORPUSCULAR HGB 33.2 pg (27.0-31.0); MEAN CORPUSCULAR HGB CONC 32.8 g/dl (33.0-37.0); MEAN PLATELET VOLUME 9.4 fl (9.6-12.3); MONO # 0.6 10*3/uL (0.1-1.0); MONO % 5.9 % (3.0-9.0); NEUT # 8.6 10*3/uL (2.3-7.9); NEUT % 84.8 % (47.0-73.0); PLATELET COUNT AUTOMATED 186 10*3/uL (130-400); WHITE BLOOD COUNT 10.2 10*3/uL (4.8-10.8)
--- NOTE | 2018-11-12 06:10 | NUR ---
CALLED DR. RASHEED WITH CRITICAL TROPONIN 0.245.
--- NOTE | 2018-11-12 07:20 | NUR ---
PT OFF FLOOR VIA BED TO OR FOR BRONCH THIS AM WITH DR BACON.ASSMERCYMENT IN HALLWAY PRIOR TO REPORT. LUNGS DIM,FAINT EXP WHEEZE NOTED. BM TODAY, PT STATES "I HAVE DIARRHEA". NO EDEMA, DENIES CP/PRESSURE AT THIS TIME.PT RESPS EASY ON 2.5 LNC.
--- NOTE | 2018-11-12 09:00 | NUR ---
case management visits with patient, patient states he is still willing to go to [facility] when stable for discharge, patient denies any other needs at this time
--- NOTE | 2018-11-12 09:02 | NUR ---
REPORT RECIEVED FROM OR PT IN RECOVERY AND STABLE AT THIS TIME.
--- NOTE | 2018-11-12 09:40 | NUR ---
NOTIFIED DR PARK OF CRITICAL TROPONIN OF 0.298, NO NEW ORDERS.
--- NOTE | 2018-11-12 09:55 | NUR ---
OT NOTE Pt was seen this A.M. 1:1 for 15 minute OT session. Upon arrival pt was supine in bed, pt identified by name and . Pt had no complaints at this time and presented to therapy with continous 2.5L-O2 via NC which he remained on throughout entire session. Pt transferred supine to sit EOB with supervision. Challenged pt's dyanmic sitting and standing balance needed for increased I and enhanced safety in self care tasks. While having pt weight shift, cross midline, and bilateral integration in both sitting and standing pt was able to maintain G sitting balance and F+ standing balance. Pt then returned to bed where he was left supine with call light in hand, tray table in place, and phone in reach. Continue with rec D/C plan to SNF. MAKAYLA Hobson
--- NOTE | 2018-11-12 10:08 | NUR ---
PHYSICAL THERAPY Patient presented to therapy in supine and candelario just arrived back in room from having a brochyscope. Patient is on 2 liters of spO2 via nasal canula. Patient agrees to therapy session. Patient was identified by anme and . Patient performed supine to sitting at EOB transfer with SBA. Patient transferred STS with SBA. Patient ambulated 200' x 1 with no assistive device and CLOSE SUPERVISION to CGA X 1 with 2 liters spO2 via nasal canula. Patient had minor LOB ,which he was able to correct himself. Patient ambulated for a total of 3 minutes. Patient transferred back to supine with SBA. Patient was left in supine position with head of bed elevated, call light within reach, and attached to wall outlet with 2 liters of spO2. Patient was 1:1 with this MOBILE SOLUTIONS ARCHITECT for 15 minutes total. LINWOOD NEGRETE MOBILE SOLUTIONS ARCHITECT
--- NOTE | 2018-11-12 11:32 | NUR ---
NOTIFIED DR PARK OF CRITICAL TROPONIN OF 0.330 WHILE SHE WAS ROUNDING ON FLOOR WITH DR QUISPE.NO NEW ORDERS.
--- NOTE | 2018-11-12 14:57 | NUR ---
NOTIFIED DR COTE OF NEW CONSULT FOR DEMAND ISCHEMIA, ELEVATED TROPONIN'S WHILE HE WAS ROUNDING ON FLOOR.
--- NOTE | 2018-11-12 23:11 | NUR ---
24 HR chart check completed.
[2018-11-13] VITALS: BP 110/71
--- NOTE | 2018-11-13 07:30 | NUR ---
Patient referred to Christopher verma, carlos started, waiting on auth
[2018-11-13 08:00] VITALS: BP 108/68
--- NOTE | 2018-11-13 09:32 | NUR ---
DR COTE ROUNDED AND SEEN PT.
--- NOTE | 2018-11-13 10:32 | NUR ---
DR GARCIA AND TEAM ROUNDED AND SEEN PT.
--- NOTE | 2018-11-13 11:03 | NUR ---
PHYSICAL THERAPY TUSHAR SEEN 1:1 THIS AM FOR PHYSICAL THERAPY. PATIENT ID BY NAME AND . PATIENT COMPLETED GAIT TRAINIGN WITH NO AD, SBA, MILD LOB NOTED WITH TURNING, GOOD MANAGEMENT OF O2 LINE AT 2.5L CONTINUOUS. GAIT COMPLETED 90' X2, SPO2 AT 86% FOLLOWING 1ST BOUT, RECOVERY AFTER 30SEC TO 100% WITH BREATHING TECHNIQUES. 2ND BOUT SPO2 AT 100% FOLLOWING. PATIENT REQUIRED CUES FOR IMPROVED STEP LENGHT AND HEIGHT FOR DECREASED FALL RISK. PATIENT FATIGUED FOLLOWING GAIT, IN NAD, SESSION ENDED. TOTAL TREATMENT TIME 13MIN. MALCOLM YUNG, WAITER/WAITRESS ROOM SERVICE
[2018-11-13] MEDS ORDERED: PREDNISONE10 MG PO (11:56)
[2018-11-13] MEDS ORDERED: LEVAQUIN500 M2 PO (11:56)
[2018-11-13 12:00] VITALS: BP 108/70
--- NOTE | 2018-11-13 12:52 | NUR ---
Christopher verma stated patient received auth and is ok to go when medically stable for discharge.
--- NOTE | 2018-11-13 14:44 | NUR ---
Discharge instructions reviewed with patient/family. Patient receptive and verbalizes understanding. Follow-up care arranged. Written instructions given to patient/family. LESLI AYALA
[2018-11-13 15:08] LABS: ACID FAST SPEC PROCESSING Concentration (.)
--- NOTE | 2018-11-17 07:58 | NUR ---
PHYSICAL THERAPY CO-SIGN I approve of the Phyical Therapy notes written above. DARIUS KAM PT
[2018-12-24 16:08] LABS: ACID FAST CULTURE Negative (.)
[2019-01-10] MEDS ORDERED: FLOVENT HFA12 GM INH (11:20)
[2019-01-13] MEDS ORDERED: PREDNISONE10 MG PO (11:32)
[2019-01-13] MEDS ORDERED: LEVOFLOXACIN500 MG PO (11:32)
[2019-01-13] MEDS ORDERED: NICODERM CQ1 EAC2 T (12:49)
== END 2018-11-13 14:44 | disposition other institution (70) | DRG 871 ==
LOC: ED 21:26 → 4E 22:51 → EDHOLD 22:51 → 4E 23:05
PROVIDERS: Emergency Medicine; Internal Medicine; Internal Medicine Critical Care Medicine; Student in an Organized Health Care Education/Training Program; ADMIT Internal Medicine
DX: A41.9 Sepsis, unspecified organism (principal); J18.9 Pneumonia, unspecified organism; J96.21 Acute and chronic respiratory failure with hypoxia; J44.1 Chronic obstructive pulmonary disease with (acute) exacerbation; E44.0 Moderate protein-calorie malnutrition; E87.1 Hypo-osmolality and hyponatremia; I24.8 Other forms of acute ischemic heart disease; J44.0 Chronic obstructive pulmonary disease with (acute) lower respiratory infection; T17.590A Other foreign object in bronchus causing asphyxiation, initial encounter; Z68.1 Body mass index [BMI] 19.9 or less, adult; R73.9 Hyperglycemia, unspecified; M19.90 Unspecified osteoarthritis, unspecified site; I10 Essential (primary) hypertension; F17.210 Nicotine dependence, cigarettes, uncomplicated; E86.0 Dehydration; K21.9 Gastro-esophageal reflux disease without esophagitis; J20.9 Acute bronchitis, unspecified; E55.9 Vitamin D deficiency, unspecified; D53.9 Nutritional anemia, unspecified; X58.XXXA Exposure to other specified factors, initial encounter; Y93.89 Activity, other specified; Y92.89 Other specified places as the place of occurrence of the external cause; Y99.8 Other external cause status; Z99.81 Dependence on supplemental oxygen; Z88.0 Allergy status to penicillin; Z87.01 Personal history of pneumonia (recurrent); Z82.5 Family history of asthma and other chronic lower respiratory diseases; Z83.3 Family history of diabetes mellitus; Z79.899 Other long term (current) drug therapy

== ENCOUNTER 2020-08-18 13:38 | Inpatient (IN) | payer MEDICARE ==
[~2020-08-18] VITALS: Ht 162.6 cm; Wt 44.1 kg
[2020-08-18 13:38] VITALS: BP 124/68
[~2020-08-18 13:38] MED LIST changes: +FLOVENT HFA12 GM INH; +LEVOFLOXACIN500 MG PO; +NICODERM CQ1 EAC2 T
[2020-08-18 14:05] LABS: HEMATOCRIT 30.4 % (42.0-52.0); MEAN CELL VOLUME 96.5 fl (80.0-94.0); MEAN CORPUSCULAR HGB 31.1 pg (27.0-31.0); MEAN CORPUSCULAR HGB CONC 32.2 g/dl (33.0-37.0); MEAN PLATELET VOLUME 8.7 fl (9.6-12.3); PLATELET COUNT AUTOMATED 408 10*3/uL (130-400); RED BLOOD COUNT 3.15 10*6/uL (4.50-5.90); RED CELL DISTRI WIDTH 13.4 % (0-14.5); WHITE BLOOD COUNT 24.1 10*3/uL (4.8-10.8)
[2020-08-18 14:20] LABS: ALBUMIN 2.7 gm/dl (3.1-4.5); ALKALINE PHOSPHATASE 45 U/L (45-117); BUN 11 mg/dl (7-24); CHLORIDE 94 mmol/L (98-107); CREATININE 0.99 mg/dL (0.70-1.30); LIPASE 29 U/L (73-393); POTASSIUM 4.8 mmol/L (3.5-5.1); SGOT/AST 12 IU/L (3-35); SGPT/ALT 10 U/L (12-78); SODIUM 130 mmol/L (136-145); TOTAL PROTEIN 7.7 gm/dL (6.4-8.2)
[2020-08-18 14:27] LABS: TROPONIN I < 0.015 ng/ml (<0.045)
[2020-08-18 14:28] LABS: ACT PARTIAL THROMBO TIME 27.3 SECONDS (20.0-32.1); INTERNATIONAL NORM RATIO 0.9 (2.0-3.5)
[2020-08-18 14:38] LABS: TOTAL CELLS COUNTED 100 #CELLS
[2020-08-18 14:39] LABS: PLATELET SUFFICIENCY HIGH (NORMAL)
[2020-08-18 16:38] VITALS: BP 130/71
--- NOTE | 2020-08-18 16:39 | NUR ---
WOUND ASSESSMENT COMPLETED ON PT. COCCYX RED BUT BLANCHABLE. PT DENIES WOUNDS.
[2020-08-18 17:48] VITALS: BP 123/68
[2020-08-18 19:00] VITALS: BP 119/67
--- NOTE | 2020-08-18 19:05 | NUR ---
PT RESTING IN BED WATCHING TV.
--- NOTE | 2020-08-18 19:27 | NUR ---
RESPS ARE LABORED. FEELING MORE SOB. STATES HE NORMALLY WOULD HAVE TAKEN AN AEROSOL TX BY NOW. TREATMENT ORDERED.
--- NOTE | 2020-08-18 19:30 | NUR ---
Transfer of care from Marie falcon.
[2020-08-18 19:36] VITALS: BP 117/66
--- NOTE | 2020-08-18 19:41 | NUR ---
In to see pt at this time.Pt is alert and orientated at this time.Pt has 20gague ac infusing with fluids at this time.Wheezing noted in lung sounds at this time and diminshed all over.Bs x4 and pt denines open wounds at this time.
--- NOTE | 2020-08-18 20:19 | NUR ---
Report to Cathleen falcon.
--- NOTE | 2020-08-18 20:28 | NUR ---
Pt taken to floor with Gaye falcon at this time.
[2020-08-18 20:30] VITALS: BP 156/81
--- NOTE | 2020-08-18 20:30 | NUR ---
A 64, admitted to 4E, under the services of JOSIANE Bansal DO with a diagnosis of ACUTE RESP. FAILURE WITH HYPOXIA, SEVERE, SEPSIS AND PNEUMONIA, SUSPECTED COVID. Chief complaint is 4 DAYS SOB WHEEZING. Patient arrived via bed from ER. Monitor applied. Initial assessment completed. Vital signs taken and recorded. JOSIANE BANSAL DO notified of admission to the 4E unit. Orders received. See assessment for past medical history, medications and allergies. Patient and/or family oriented to unit. [facility] visitation policy reviewed. Clothing/patient valuable form completed. LIZZIE GARCIA
--- NOTE | 2020-08-18 20:35 | NUR ---
PATIENT WALKED FROM CART TO BED. PATIENT IN SEVERE RESP DISTRESS, VERY SOB, POSTURING. O2 INCREASED TO 5L BREATHING TECHNIQUE BEING DONE WITH PATIENT. CALLED RESIDENTS AND NOTIFIED THEM OF THIS AND ORDERS RECEIVED. CALLED RESP. AND THEY ARE COMING TO FLOOR.
--- NOTE | 2020-08-18 20:45 | NUR ---
PT. RESP. STARTING TO GET UNDER CONTROL. RESP. STILL 22 BPM PULSE OX WAS 88% AND INCREASED TO 94% HR WAS 123 AND NOW 104 bpm, PATIENT ABLE TO SPEAK MORE THAN ONE WORD.CONTINUING TO BE WITH PATIENT.
--- NOTE | 2020-08-18 21:00 | NUR ---
RESP. ON UNIT AND GOING TO HAVE ABG'S DONE. PATIENT RESP. EASIER PULSE OX 98-99% ON 5L O2. PATIENT CALMER. PATIENT LESS ANXIOUS
[2020-08-18 21:30] LABS: ABG BASE EXCESS -0.8 mmol/L (-2.0-2.0); ARTERIAL BLOOD GAS PH 7.406 (7.35-7.45)
--- NOTE | 2020-08-18 23:30 | NUR ---
STOOD BESIDE BED TO VOID AND THEN BACK TO BED PATIENT VERY SOB BUT WAS ABLE TO RECOVER. 5L O2 IN USE VIA NC. DID NOT LEAVE PATIENT UNTIL HE CAUGHT HIS BREATH AND WAS OK.
[2020-08-19] VITALS: BP 128/65
--- NOTE | 2020-08-19 05:58 | NUR ---
DAILY WEIGHT OBTAINED 93.4LB WHICH IS DIFFERENT FROM ADMIT WEIGHT OF PER PT. OF 108LB.
[2020-08-19 07:23] LABS: HEMATOCRIT 26.3 % (42.0-52.0); MEAN CELL VOLUME 95.3 fl (80.0-94.0); MEAN CORPUSCULAR HGB 30.8 pg (27.0-31.0); MEAN CORPUSCULAR HGB CONC 32.3 g/dl (33.0-37.0); PLATELET COUNT AUTOMATED 375 10*3/uL (130-400); RED BLOOD COUNT 2.76 10*6/uL (4.50-5.90); RED CELL DISTRI WIDTH 13.4 % (0-14.5); WHITE BLOOD COUNT 14.3 10*3/uL (4.8-10.8)
[2020-08-19 07:44] LABS: ALBUMIN 2.1 gm/dl (3.1-4.5); BUN 15 mg/dl (7-24); CHLORIDE 99 mmol/L (98-107); POTASSIUM 4.6 mmol/L (3.5-5.1); SODIUM 132 mmol/L (136-145); TOTAL CELLS COUNTED 100 #CELLS
[2020-08-19 07:45] LABS: ACANTHOCYTES FEW; BURR CELLS MODERATE; PLATELET SUFFICIENCY NORMAL (NORMAL)
[2020-08-19 07:55] LABS: ALKALINE PHOSPHATASE 36 U/L (45-117); CHOLESTEROL 121 mg/dL (<200); CREATININE 0.67 mg/dL (0.70-1.30); HDL CHOLESTEROL 40 mg/dl (40-60); LDL CHOLESTEROL 67 mg/dL (9-159); SGOT/AST 8 IU/L (3-35); SGPT/ALT 8 U/L (12-78); THYROID STIM HORMONE (HS) 0.411 uIU/ml (0.358-4.75); TOTAL PROTEIN 6.1 gm/dL (6.4-8.2); TRIGLYCERIDES 71 mg/dl (<150); VLDL CHOLESTEROL 14 mg/dL (6-40)
[2020-08-19 08:17] LABS: VITAMIN D, 25-HYDROXY 102.1 ng/mL (30-100)
[2020-08-19 08:18] LABS: FERRITIN 599.8 ng/mL (22.0-322.0)
--- NOTE | 2020-08-19 09:26 | NUR ---
SPEECH PATHOLOGY Nursing screen completed. There are no reports of acute speech or swallowing difficulty however this dept. will be available if needs arise. CHIARA BORJA MSCCC-BAND PRESSER
[2020-08-19 12:00] VITALS: BP 136/70
[2020-08-19 16:00] VITALS: BP 111/75
[2020-08-19 20:00] VITALS: BP 135/75
--- NOTE | 2020-08-19 21:41 | NUR ---
PT MEDICATED W/RESTORIL TO HELP PROMOTE SLEEP.
--- NOTE | 2020-08-19 22:40 | NUR ---
PRN RESTORIL EFFECTIVE EVIDENCED BY PT RESTING QUIETLY IN BED W/EYES CLOSED. CALL LIGHT IN REACH.
[2020-08-20 01:01] VITALS: BP 128/73
[2020-08-20 06:21] LABS: HEMATOCRIT 28.3 % (42.0-52.0); MEAN CELL VOLUME 95.6 fl (80.0-94.0); MEAN CORPUSCULAR HGB 30.1 pg (27.0-31.0); MEAN CORPUSCULAR HGB CONC 31.4 g/dl (33.0-37.0); MEAN PLATELET VOLUME 9.1 fl (9.6-12.3); PLATELET COUNT AUTOMATED 474 10*3/uL (130-400); RED BLOOD COUNT 2.96 10*6/uL (4.50-5.90); RED CELL DISTRI WIDTH 13.6 % (0-14.5)
[2020-08-20 06:22] LABS: ALBUMIN 2.2 gm/dl (3.1-4.5); CHLORIDE 101 mmol/L (98-107); CREATININE 0.85 mg/dL (0.70-1.30); POTASSIUM 4.7 mmol/L (3.5-5.1); SGOT/AST 17 IU/L (3-35); SGPT/ALT 11 U/L (12-78); SODIUM 136 mmol/L (136-145); TOTAL PROTEIN 6.4 gm/dL (6.4-8.2)
[2020-08-20 06:23] LABS: ALKALINE PHOSPHATASE 39 U/L (45-117); BUN 26 mg/dl (7-24); CPK 63 U/L (39-308); LDH 118 U/L (87-241)
--- NOTE | 2020-08-20 07:00 | NUR ---
ARRIVED ON SHIFT, REPORT RECEIVED FROM OFFGOING NURSE, ASSUMED CARE OF PATIENT.
[2020-08-20 07:21] LABS: BURR CELLS FEW; OVALOCYTES FEW; PLATELET SUFFICIENCY HIGH (NORMAL); ROULEAUX SLIGHT; TOTAL CELLS COUNTED 100 #CELLS
--- NOTE | 2020-08-20 07:45 | NUR ---
INTRODUCED SELF TO PATIENT, BED IN LOW POSITION, WHEEL LOCKS ENGAGED, SIDE RAILS UP X 2 FOR TURNING AND REPOSITIONING, CALL LIGHT WITHIN REACH, NO NEEDS VOICED AT THIS TIME, WHITE BOARD UPDATED.
[2020-08-20 08:00] VITALS: BP 132/69
[2020-08-20 12:00] VITALS: BP 130/86
[2020-08-20 16:00] VITALS: BP 145/77
[2020-08-20 20:00] VITALS: BP 158/85
--- NOTE | 2020-08-20 21:00 | NUR ---
PATIENT VOICED NO COMPLAINTS, STATES HE FEELS BETTER THAN YESTERDAY. STATES HE GET SOB WHEN SITTING AT BEDSIDE TO USE URINAL, STATES HE WILL ASK FOR HELP IF NEEDED TO WALK TO BATHROOM. NO VOERT DISTRESS NOTED, RESP ARE EASY AND REGUALR AT REST ON 5L NC. BED IS LOCKED IN LOWEST POSITION, CALL LIGHT WITHIN REACH.
[2020-08-21] VITALS: BP 118/69
[2020-08-21 06:30] LABS: BASO % 0.1 % (0.0-1.0); HEMATOCRIT 26.7 % (42.0-52.0); LYMPH # 0.8 10*3/uL (1.3-4.4); LYMPH % 8.4 % (27.0-41.0); MEAN CELL VOLUME 97.1 fl (80.0-94.0); MEAN CORPUSCULAR HGB 30.5 pg (27.0-31.0); MEAN CORPUSCULAR HGB CONC 31.5 g/dl (33.0-37.0); MEAN PLATELET VOLUME 8.9 fl (9.6-12.3); MONO # 0.4 10*3/uL (0.1-1.0); NEUT # 8.4 10*3/uL (2.3-7.9); NEUT % 86.7 % (47.0-73.0); PLATELET COUNT AUTOMATED 468 10*3/uL (130-400); RED BLOOD COUNT 2.75 10*6/uL (4.50-5.90); RED CELL DISTRI WIDTH 13.7 % (0-14.5); WHITE BLOOD COUNT 9.7 10*3/uL (4.8-10.8)
[2020-08-21 07:00] LABS: ALBUMIN 2.2 gm/dl (3.1-4.5); BUN 23 mg/dl (7-24); CHLORIDE 102 mmol/L (98-107); CREATININE 0.76 mg/dL (0.70-1.30); POTASSIUM 4.3 mmol/L (3.5-5.1); SGOT/AST 19 IU/L (3-35); SGPT/ALT 16 U/L (12-78); SODIUM 137 mmol/L (136-145); TOTAL PROTEIN 5.9 gm/dL (6.4-8.2)
[2020-08-21 07:06] LABS: ALKALINE PHOSPHATASE 56 U/L (45-117); LDH 118 U/L (87-241)
[2020-08-21 07:09] LABS: CPK 31 U/L (39-308)
--- NOTE | 2020-08-21 07:53 | NUR ---
Shift chart check completed.
[2020-08-21 08:00] VITALS: BP 116/80
[2020-08-21 12:00] VITALS: BP 138/71
[2020-08-21 16:00] VITALS: BP 148/75
[2020-08-21 20:00] VITALS: BP 121/68
[2020-08-22] VITALS: BP 114/75
[2020-08-22 06:29] LABS: BASO % 0.1 % (0.0-1.0); HEMATOCRIT 29.6 % (42.0-52.0); LYMPH # 1.1 10*3/uL (1.3-4.4); MEAN CELL VOLUME 96.7 fl (80.0-94.0); MEAN CORPUSCULAR HGB 30.4 pg (27.0-31.0); MEAN CORPUSCULAR HGB CONC 31.4 g/dl (33.0-37.0); MEAN PLATELET VOLUME 8.6 fl (9.6-12.3); MONO # 0.5 10*3/uL (0.1-1.0); NEUT # 8.5 10*3/uL (2.3-7.9); NEUT % 82.5 % (47.0-73.0); PLATELET COUNT AUTOMATED 537 10*3/uL (130-400); RED BLOOD COUNT 3.06 10*6/uL (4.50-5.90); RED CELL DISTRI WIDTH 13.4 % (0-14.5); WHITE BLOOD COUNT 10.3 10*3/uL (4.8-10.8)
[2020-08-22 06:51] LABS: ALBUMIN 2.5 gm/dl (3.1-4.5); ALKALINE PHOSPHATASE 43 U/L (45-117); BUN 21 mg/dl (7-24); CHLORIDE 102 mmol/L (98-107); CREATININE 0.79 mg/dL (0.70-1.30); LDH 105 U/L (87-241); POTASSIUM 4.6 mmol/L (3.5-5.1); SGOT/AST 15 IU/L (3-35); SGPT/ALT 20 U/L (12-78); SODIUM 136 mmol/L (136-145); TOTAL PROTEIN 6.3 gm/dL (6.4-8.2)
[2020-08-22 06:53] LABS: CPK 20 U/L (39-308)
--- NOTE | 2020-08-22 07:00 | NUR ---
ARRIVED ON SHIFT, REPORT RECEIVED FROM OFFGOING NURSE, ASSUMED CARE OF PATIENT.
[2020-08-22 08:00] VITALS: BP 118/62; BP 128/68
--- NOTE | 2020-08-22 08:19 | NUR ---
Shift chart check completed.
--- NOTE | 2020-08-22 11:51 | NUR ---
Assistant Tennis Professional in to talk to patient. Patient states lives at HOME with . There are 10 steps in the home. Physician: TUAN TORRES [facility] Home health services: NONE Patient's level of ADLs: INDEPENDENT Patient has working utilities: YES DME: OXYGEN AND PORTABLE TANKS FROM [facility], CANE NEBULIZER Follow-up physician's appointment after d/c: WILL BE MADE BY HOSPITALIST NURSE DIRECTOR ON DISCHARGE Does patient want to access PORTAL?: NO Discharge plan PT LIVES AT HOME WITH HIS AND IS INDEPENDENT IN CARE. HAS HOME OXYGEN AND NEBULIZER AND USES A CANE AT TIMES. TALKED WITH PT ABOUT HOME HEALTH BUT HE DECLINES. PLAN IS TO RETURN HOME WHEN MEDICALLY STABLE. WILL HAVE A RIDE HOME PER PT. WILL CONTINUE TO FOLLOW.. LEYDI CONROY
[2020-08-22 12:00] VITALS: BP 120/60
[2020-08-22] MEDS ORDERED: PREDNISONE10 MG PO (12:19)
[2020-08-22] MEDS ORDERED: ZITHROMAX250 MG PO ×2 (12:20)
--- NOTE | 2020-08-22 15:00 | NUR ---
Discharge instructions reviewed with patient. Patient receptive and verbalizes understanding. Follow-up care arranged. Written instructions given to patient, Stressed importance of alejandrain appointments and taking all medication as ordered, provided written perscriptions, taken out via w/c with 02 on. IV removed, telemetry accounted for. CORBIN TAYLOR
== END 2020-08-22 15:00 | disposition home or self-care (01) | DRG 871 ==
LOC: ED 13:38 → 4E 15:21 → EDHOLD 15:21 → 5E 16:56 → 4E 17:50
PROVIDERS: Emergency Medicine; Internal Medicine; ADMIT Family Medicine; ATTEND Family Medicine
DX: A41.9 Sepsis, unspecified organism (principal); J18.9 Pneumonia, unspecified organism; J96.01 Acute respiratory failure with hypoxia; E43 Unspecified severe protein-calorie malnutrition; Z68.1 Body mass index [BMI] 19.9 or less, adult; E87.1 Hypo-osmolality and hyponatremia; J44.1 Chronic obstructive pulmonary disease with (acute) exacerbation; J44.0 Chronic obstructive pulmonary disease with (acute) lower respiratory infection; D53.9 Nutritional anemia, unspecified; E83.41 Hypermagnesemia; I10 Essential (primary) hypertension; Z20.828 Contact with and (suspected) exposure to other viral communicable diseases; R73.9 Hyperglycemia, unspecified; F17.210 Nicotine dependence, cigarettes, uncomplicated; J30.2 Other seasonal allergic rhinitis; Z83.3 Family history of diabetes mellitus; Z82.49 Family history of ischemic heart disease and other diseases of the circulatory system; Z88.0 Allergy status to penicillin; Z79.51 Long term (current) use of inhaled steroids; Z79.899 Other long term (current) drug therapy; Z71.6 Tobacco abuse counseling

== ENCOUNTER 2020-09-02 15:39 | Inpatient (IN) | payer MEDICARE ==
[~2020-09-02] VITALS: Ht 162.6 cm; Wt 43.1 kg
[~2020-09-02 15:39] MED LIST changes: +ZITHROMAX250 MG PO
[2020-09-02 15:42] VITALS: BP 101/59
[2020-09-02 16:08] LABS: MEAN CELL VOLUME 94.2 fl (80.0-94.0); MEAN CORPUSCULAR HGB 30.2 pg (27.0-31.0); MEAN CORPUSCULAR HGB CONC 32.1 g/dl (33.0-37.0); MEAN PLATELET VOLUME 8.6 fl (9.6-12.3); PLATELET COUNT AUTOMATED 451 10*3/uL (130-400); RED BLOOD COUNT 3.08 10*6/uL (4.50-5.90); RED CELL DISTRI WIDTH 13.9 % (0-14.5); WHITE BLOOD COUNT 32.3 10*3/uL (4.8-10.8)
[2020-09-02 16:20] LABS: ACT PARTIAL THROMBO TIME 27.9 SECONDS (20.0-32.1); INTERNATIONAL NORM RATIO 1.1 (2.0-3.5)
[2020-09-02 16:24] LABS: ALBUMIN 2.3 gm/dl (3.1-4.5); ALKALINE PHOSPHATASE 49 U/L (45-117); BUN 15 mg/dl (7-24); CHLORIDE 99 mmol/L (98-107); CREATININE 0.94 mg/dL (0.70-1.30); LIPASE 29 U/L (73-393); POTASSIUM 3.9 mmol/L (3.5-5.1); SGOT/AST 8 IU/L (3-35); SGPT/ALT 9 U/L (12-78); SODIUM 134 mmol/L (136-145)
[2020-09-02 16:27] LABS: TOTAL CELLS COUNTED 100 #CELLS
[2020-09-02 16:28] LABS: PLATELET SUFFICIENCY HIGH (NORMAL); TROPONIN I < 0.015 ng/ml (<0.045)
--- NOTE | 2020-09-02 18:40 | NUR ---
CALL PLACED TO DR. BACON NOTIFIED OF CONSULT.
[2020-09-02 18:46] VITALS: BP 102/58
--- NOTE | 2020-09-02 18:56 | NUR ---
PT REPORTS SCABBING, HEALING WOUND TO COCCYX. PT NOTES THERE ARE NO OPEN WOUNDS. REFUSES WOUND PICTURES AT THIS TIME.
--- NOTE | 2020-09-02 21:12 | NUR ---
PT RESTING IN BED. NO ACUTE DISTRESS AT THIS TIME. CALL LIGHT WITHIN REACH
[2020-09-02 22:02] VITALS: BP 101/59
[2020-09-02 23:00] VITALS: BP 108/64
[2020-09-02 23:15] VITALS: BP 160/63
--- NOTE | 2020-09-02 23:15 | NUR ---
A 64, admitted to 5E, under the services of JOSIANE Bansal DO with a diagnosis of SEPSIS,PNEUMONIA. Chief complaint is SHORTNESS OF BREATH. Patient arrived via bed from ER. Monitor applied. Initial assessment completed. Vital signs taken and recorded. JOSIANE BANSAL DO notified of admission to the unit. Orders received. See assessment for past medical history, medications and allergies. Patient and/or family oriented to unit. [address] visitation policy reviewed. Clothing/patient valuable form completed. JITENDRA HOLLINS
--- NOTE | 2020-09-02 23:47 | NUR ---
MEDICATIONS VERIFIED WITH PATIENT.
--- NOTE | 2020-09-02 23:48 | NUR ---
CALLED DR. HUERTA MADE AWARE PT MEDICATIONS VERIFIED AND NEED ORDERED.
--- NOTE | 2020-09-03 | NUR ---
ASSESSMENT COMPLETE SEE FLOWSHEET. PLEASANT/COOPERATIVE. C/O SOB/TIRED. CONTINUES TO REFUSE TO ALLOW PIC OR MEASUREMENTS OF WOUNDS. CALL LIGHT IN REACH.
[2020-09-03 07:09] LABS: HEMATOCRIT 25.7 % (42.0-52.0); MEAN CELL VOLUME 96.6 fl (80.0-94.0); MEAN CORPUSCULAR HGB 30.8 pg (27.0-31.0); MEAN CORPUSCULAR HGB CONC 31.9 g/dl (33.0-37.0); MEAN PLATELET VOLUME 8.8 fl (9.6-12.3); PLATELET COUNT AUTOMATED 374 10*3/uL (130-400); RED BLOOD COUNT 2.66 10*6/uL (4.50-5.90); RED CELL DISTRI WIDTH 13.9 % (0-14.5); WHITE BLOOD COUNT 27.9 10*3/uL (4.8-10.8)
[2020-09-03 07:21] LABS: INTERNATIONAL NORM RATIO 1.1 (2.0-3.5)
--- NOTE | 2020-09-03 07:30 | NUR ---
PT RESTING IN BED. RESPS EASY AND NON LABORED. NO S/S OF DISTRESS NOTED. VSS. WHITE BOARD UPDATED. POC DISCUSSED W PT. A/O X3. 4L NC ITNACT.ALAN.I&E WHEEZES.PROD COUGH NOTED. PT CONTINUES TO REFUSE WOUND CARE. AGREEABLE TO TAKE MORNING MEDICATIONS. IVF INFUSING W/O INCIDENT. WILL CONTINUE TO MONITOR. CALL LIGHT WITHIN REACH.
[2020-09-03 07:39] LABS: ALBUMIN 1.8 gm/dl (3.1-4.5); ALKALINE PHOSPHATASE 52 U/L (45-117); BUN 16 mg/dl (7-24); CHLORIDE 102 mmol/L (98-107); CREATININE 0.85 mg/dL (0.70-1.30); POTASSIUM 4.2 mmol/L (3.5-5.1); SGOT/AST 9 IU/L (3-35); SGPT/ALT 8 U/L (12-78); SODIUM 134 mmol/L (136-145)
[2020-09-03 07:47] LABS: THYROID STIM HORMONE (HS) 0.723 uIU/ml (0.358-4.75)
[2020-09-03 07:58] LABS: PLATELET SUFFICIENCY NORMAL (NORMAL); TOTAL CELLS COUNTED 100 #CELLS
[2020-09-03 08:00] VITALS: BP 103/58
--- NOTE | 2020-09-03 10:04 | NUR ---
Competitive Intelligence Analyst in to talk to patient. Patient states lives at HOME with HIS . There are 10 steps in the home. Physician: TUAN TORRES [facility]: [facility] Home health services: NONE Patient's level of ADLs: INDEPENDENT Patient has working utilities: YES DME: OXYGEN AND PORTABLE TANKS FROM [facility], CANE, NEBULIZER Follow-up physician's appointment after d/c: WILL BE MADE BY RN HOSPITALST COORDINATOR Does patient want to access PORTAL?: NO Discharge plan : PATIENT RESIDES AT HOME WITH HIS . PATIENT STATED HE DOES HAVE A CANE, BUT DOES NOT USE IT OFTEN. WIDE AREA NETWORK ADMINISTRATOR ASKED PATIENT IF HE WOULD LIKE TO GO TO SNF HIS WAS JUST DISCHARGED TO A SNF YESTERDAY. PATIENT STATES HE WOULD RATHER GO HOME. PATIENT STATES HE WOULD BE OPEN TO HOME HEALTH IF NEEDED. PATIENT STATES WOULD HAVE A RIDE AT DISCHARGE. CASE MANAGEMENT TO FOLLOW. JAYLYN CAROLINA
--- NOTE | 2020-09-03 10:32 | NUR ---
PT TAKEN OFF FLOOR TO CT
--- NOTE | 2020-09-03 11:00 | NUR ---
DR TSE NOTIFIED PT REFUSING CT
[2020-09-03 12:00] VITALS: BP 112/64
--- NOTE | 2020-09-03 15:42 | NUR ---
Patient resting quietly with no c/o discomfort. Respirations easy and regular. Vital signs stable. No overt distress. HISSOM,YURIDIA
[2020-09-03 16:00] VITALS: BP 125/60
[2020-09-03 20:00] VITALS: BP 117/67
--- NOTE | 2020-09-03 20:00 | NUR ---
ASSESSMENT COMPLETE SEE FLOWSHEET. COOPERATIVE. NO C/O VOICED. TOOK PO MEDS WITHOUT DIFFICULTY. ALL SAFETY MEASURES IN PLACE. CALL LIGHT IN REACH.
[2020-09-04] VITALS: BP 109/65
--- NOTE | 2020-09-04 06:52 | NUR ---
NOTIFIED DR. BRAVO OF WBC 47.6
--- NOTE | 2020-09-04 07:30 | NUR ---
PT RESTING IN BED. RESPS EASY AND NON LABORED. NO S/S OF DISTRESS NOTED. VSS. WHITE BOARD UPDATED. POC DISCUSSED W PT. A/O X3. I&E WHEEZES, PROD COUGH NOTED. C/O MINIMAL ALAN. 4L NC INTACT. PT STATES HE FEELS BETTER THAN YESTERDAY.WILL CONTINUE TO MONITOR. CALL LIGHT WITHIN REACH.
--- NOTE | 2020-09-04 07:30 | NUR ---
PATIENT RESTING IN BED. DENIES ANY NEEDS/CONCERNS. STATES HE IS FEELING BETTER TODAY AND HIS SOB IS IMPROVING. ASSESSMENT COMPLETE. RESPS EASY AND REGULAR. CALL LIGHT IN REACH.
[2020-09-04 08:00] VITALS: BP 112/64
[2020-09-04 08:02] LABS: HEMATOCRIT 24.5 % (42.0-52.0); MEAN CELL VOLUME 97.6 fl (80.0-94.0); MEAN CORPUSCULAR HGB 30.7 pg (27.0-31.0); MEAN CORPUSCULAR HGB CONC 31.4 g/dl (33.0-37.0); MEAN PLATELET VOLUME 9.2 fl (9.6-12.3); PLATELET COUNT AUTOMATED 356 10*3/uL (130-400); RED BLOOD COUNT 2.51 10*6/uL (4.50-5.90); RED CELL DISTRI WIDTH 14.2 % (0-14.5); WHITE BLOOD COUNT 19.8 10*3/uL (4.8-10.8)
--- NOTE | 2020-09-04 08:04 | NUR ---
PT GIVEN EXTENSION TUBING FOR OXYGEN PER HIS REQUERST FOR AMBULATION IN ROOM
[2020-09-04 08:18] LABS: ALBUMIN 1.9 gm/dl (3.1-4.5); ALKALINE PHOSPHATASE 57 U/L (45-117); BUN 24 mg/dl (7-24); CHLORIDE 106 mmol/L (98-107); CREATININE 0.87 mg/dL (0.70-1.30); POTASSIUM 4.3 mmol/L (3.5-5.1); SGOT/AST 19 IU/L (3-35); SGPT/ALT 14 U/L (12-78); SODIUM 139 mmol/L (136-145); TOTAL PROTEIN 6.1 gm/dL (6.4-8.2)
[2020-09-04 09:41] LABS: PLATELET SUFFICIENCY NORMAL (NORMAL); TOTAL CELLS COUNTED 100 #CELLS
--- NOTE | 2020-09-04 10:19 | NUR ---
DR ALVARADO INTO SEE PT
[2020-09-04 12:00] VITALS: BP 115/61
--- NOTE | 2020-09-04 12:58 | NUR ---
Patient resting quietly with no c/o discomfort. Respirations easy and regular. Vital signs stable. No overt distress. SITTING UP IN BED EATING LUNCH. 4L INTACT. NO S/S OF DISTRESS NOTED. CALL LIGHT WITHIN REACH. YURIDIA SHIELDS
--- NOTE | 2020-09-04 13:24 | NUR ---
PER DR BACON ORDER CT CHEST W/O CONTAST. EXPLAINED PT WAS UNABLE TO TOLERATE YESTERDAY. HE STATES TO GIVE ORDERED DOSE OF MORPHINE PRIOR TO EXAM.
--- NOTE | 2020-09-04 13:52 | NUR ---
PT CONTINUES TO REFUSE CT CHEST. DR BACON MADE AWARE. STATES TO RESCHEDULE FOR 10:30AM TOMORROW AND HE WILL TALK TO THE PATIENT IN THE MORNING.
[2020-09-04 16:00] VITALS: BP 119/63
--- NOTE | 2020-09-04 17:40 | NUR ---
PT SITTING UP EATING DINNER. VOICES NO CONCERNS. RESPS EASY AND NON LABORED. NO S/S OF DISTRESS NOTED. 4L NC INTACT. WILL CONTINUE TO MONITOR. CALL LIGHT WITHIN REACH.
--- NOTE | 2020-09-04 18:06 | NUR ---
Hep Lock discontinued. Site asymptomatic. Pressure applied. Sterile dressing applied. YURIDIA SHIELDS IV started right forearm with #22 protective cath after 1 attempts. Site prepped with Chloroprep. Sterile dressing applied. Patient tolerated procedure well. YURIDIA SHIELDS
--- NOTE | 2020-09-04 19:30 | NUR ---
PATIENT RESTING IN BED. DENIES ANY NEEDS/COMPLAINTS. STATES HE IS FEELING BETTER AND HIS SHORTNESS OF BREATH IS IMPROVING. ASSESSMENT COMPLETE. RESPS EASY AND REGULAR. 4L NC IN PLACE. CALL LIGHT IN REACH.
[2020-09-04 20:00] VITALS: BP 132/57
[2020-09-05] VITALS: BP 125/64
--- NOTE | 2020-09-05 03:13 | NUR ---
24 HR chart check completed.
[2020-09-05 06:28] LABS: HEMATOCRIT 24.6 % (42.0-52.0); MEAN CELL VOLUME 97.2 fl (80.0-94.0); MEAN CORPUSCULAR HGB 30.4 pg (27.0-31.0); MEAN CORPUSCULAR HGB CONC 31.3 g/dl (33.0-37.0); MEAN PLATELET VOLUME 9.3 fl (9.6-12.3); PLATELET COUNT AUTOMATED 357 10*3/uL (130-400); RED BLOOD COUNT 2.53 10*6/uL (4.50-5.90); RED CELL DISTRI WIDTH 14.5 % (0-14.5); WHITE BLOOD COUNT 20.3 10*3/uL (4.8-10.8)
[2020-09-05 06:40] LABS: CHLORIDE 107 mmol/L (98-107); POTASSIUM 4.3 mmol/L (3.5-5.1); SODIUM 142 mmol/L (136-145)
[2020-09-05 06:49] LABS: ALBUMIN 1.9 gm/dl (3.1-4.5); ALKALINE PHOSPHATASE 65 U/L (45-117); BUN 24 mg/dl (7-24); CREATININE 0.84 mg/dL (0.70-1.30); SGOT/AST 34 IU/L (3-35); SGPT/ALT 34 U/L (12-78); TOTAL PROTEIN 6.1 gm/dL (6.4-8.2)
[2020-09-05 07:18] LABS: OVALOCYTES FEW; PLATELET SUFFICIENCY NORMAL (NORMAL); TOTAL CELLS COUNTED 100 #CELLS
[2020-09-05 07:19] LABS: POLYCHROMASIA SLIGHT
--- NOTE | 2020-09-05 07:30 | NUR ---
PT RESTING IN BED. RESPS EASY AND NON LABORED. NO S/S OF DISTRESS NOTED. VSS. WHITE BOARD UPDATED. POC DISCUSSED W PT. A/O X3. 4L NC INTACT. WHEEZES/PROD COUGH PERSIST. PT STATES HE FEELS ABOUT THE SAME YESTERDAY. SLIGHTLY IMPOROVED ALAN. AGREEABLE AT THIS TIME FOR CT OF THE CHEST. WILL CONTINUE TO MONITOR. CALL LIGHT WITHIN REACH.
--- NOTE | 2020-09-05 07:32 | NUR ---
CYLINDER DYER FAXED REFERRAL TO [facility] TO BE REVIEWED. THIS IS WHERE THE PATIENTS IS CURRENTLY. WILL NEED COVID TEST, PT/OT EVALS AND WILL HAVE TO OBTAIN PRECERT IF THE PATIENT IS STILL WANTING SNF PLACEMENT.
[2020-09-05 08:00] VITALS: BP 93/76
--- NOTE | 2020-09-05 09:00 | NUR ---
case management visits with patient, discussed with him a short term assisted for 5 days of rehab and 24 hour care prior to returning home, he adamantly refuses to go to a short term skilled. stated his is a patient at [facility] but he does not want to go. he wants to return home. he states he is on 4l/min of oxygen at home from [facility]. also discussed with him VNA and educated him on the services they provide. he didn't want any VNA at this time, he stated his family live next door and are available to help him whenever he needs help. case management will discussed this again with patient
--- NOTE | 2020-09-05 09:53 | NUR ---
PT PREMEDICATED PER DR BACON ORDER FOR CT OF CHEST. WILL MONITOR. RESPS EASY AND NON LABORED. CALL LIGHT WITHIN REACH. SITTING UP WATCHING TV.
--- NOTE | 2020-09-05 10:12 | NUR ---
PT BACK FROM CT
--- NOTE | 2020-09-05 10:39 | NUR ---
MORPHINE APPEARS EFFECTIVE. PT SLEEPING. RESPS EASY AND NONLABORED. NO S/S OF DISTRESS NOTED. WILL CONTINUE TO MONITOR. CALL LIGHT WITHIN REACH.
--- NOTE | 2020-09-05 11:10 | NUR ---
Occupational Therapy evaluation completed on 5 with full eval to follow. Precautions include 4 LPM oxygen use,frail, SOB w/ min exertion, low complexity level 51048. Recommend OT per pOC and return home w/ HH SN, OT,PT. Thank you for this referral. Niyah Perez OTR/l
--- NOTE | 2020-09-05 11:15 | NUR ---
PHYSICAL THERAPY Physical Therapy evaluation completed on 5N with full evaluation to follow. Low complexity PT evaluation per chart review and evaluation, [id number]. Recommend physical therapy per plan of care and Home Health PT services upon discharge. Thank you for this referral. Bebe Colunga,PT,DPT
[2020-09-05 12:00] VITALS: BP 129/66
--- NOTE | 2020-09-05 13:21 | NUR ---
PT STATES HE IS NOT GOING TO SNF ON DISCHARGE AND UNDER NO CIRCUMSTANCES ARE WE SWABBING HIM FOR COVID. WILL INFORM CARE TEAM AND CANCEL COVID SWAB.
--- NOTE | 2020-09-05 13:35 | NUR ---
OT NOTE Attempted to see pt this P.M. for OT session and upon arrival pt was supine in bed. Pt declined treatment at this time due to reports of increased fatigue. Will check back at a later time/date and continue with POC as able. JESSIKA Boles/Gato
--- NOTE | 2020-09-05 13:49 | NUR ---
PHYSICAL THERAPY Patient was approached for his therapy session at 1:35 PM. Patient says he does not feel well enough to do therapy at this time. Will check back with patient at a later date. LINWOOD NEGRETE CARPENTER HELPER [employer]ARDWOOD FLOORING
--- NOTE | 2020-09-05 15:56 | NUR ---
Patient resting quietly with no c/o discomfort. Respirations easy and regular. Vital signs stable. No overt distress. HISSOM,YURIDIA
[2020-09-05 16:00] VITALS: BP 130/70
[2020-09-05 20:00] VITALS: BP 123/68
--- NOTE | 2020-09-05 20:00 | NUR ---
RESTING IN BED WITH HOB ELEVAETD. 02 INTACT AT 4LPM VIA NASAL CANNULA. LUNGS VERY DIMINISHED; POOR AIR EXCHANGED; NO COUGH NOTED. PT. VERY EMACIATED. CALL LIGHT WITHIN REACH. NO DISTRESS NOTED; WILL CONTINUE TO MONITOR.
[2020-09-06] VITALS: BP 122/65
--- NOTE | 2020-09-06 | NUR ---
RESTING IN BED WITH EYES CLOSED; 02 INTACT. CALL LIGHT WITHIN REACH.
--- NOTE | 2020-09-06 04:00 | NUR ---
RESTING IN BED WITH EYES CLOSED; CALL LIGHT WITHIN REACH.
--- NOTE | 2020-09-06 08:15 | NUR ---
OT NOTE Attempted to see pt this A.M. for OT session and upon arrival pt was eating his breakfast. Will check back at a later time and continue with POC as able. JESSIKA Boles/Gato
--- NOTE | 2020-09-06 08:25 | NUR ---
PHYSICAL THERAPY Patient was approached for therapy session at 08:15 AM and he was eating breakfast at that time. Will check back later. LINWOOD NEGRETE BAG MAKING MACHINE OPERATOR
--- NOTE | 2020-09-06 09:00 | NUR ---
case management visits with patient, again discussed with him a short term usp for 5 days of rehab and 24 hour care. patient became angry and stated he wasn't going anywhere but home, also discussed VNA and educated him on the services they provide. he also declined this, case management will follow
[2020-09-06 09:11] LABS: HEMATOCRIT 26.2 % (42.0-52.0); MEAN CELL VOLUME 95.3 fl (80.0-94.0); MEAN CORPUSCULAR HGB 30.5 pg (27.0-31.0); MEAN CORPUSCULAR HGB CONC 32.1 g/dl (33.0-37.0); PLATELET COUNT AUTOMATED 331 10*3/uL (130-400); RED BLOOD COUNT 2.75 10*6/uL (4.50-5.90); RED CELL DISTRI WIDTH 14.2 % (0-14.5); WHITE BLOOD COUNT 21.1 10*3/uL (4.8-10.8)
--- NOTE | 2020-09-06 09:27 | NUR ---
OT NOTE Pt was seen this A.M. 1:1 for 15 minute OT session. Upon arrival pt was supine in bed. Pt identified by name and and had no complaints at this time other than generalized fatigue. Pt presented to therapy with continuous 4L-O2 via NC which he remained on throughout the entire session. Pt's resting SpO2 read 93% and heart rate 89 bpm. Pt transferred supine to sit EOB with supervision. While sitting EOB pt donned B socks DE. Sit to stand completed from bed level with SBA followed by functional mobility to the bathroom and back with SBA. Pt required one verbal prompt for O2 line management/safety, pt presented with fair carry over. After returning to the EOB from walking pt's SpO2 read 93% and heart rate 105 bpm. Pt was then educated and given handout on energy conservation techniques. Pt voiced understanding. Pt then transferred back into bed sit to supine with supervision. There he was left with call light in hand, tray table in place, and phone in reach. Continue with rec D/ Cplan to home with home health. JESSIKA Boles/Gato
[2020-09-06 09:32] LABS: BUN 20 mg/dl (7-24); CHLORIDE 101 mmol/L (98-107); CREATININE 0.78 mg/dL (0.70-1.30); POTASSIUM 4.2 mmol/L (3.5-5.1); SODIUM 136 mmol/L (136-145)
[2020-09-06 09:40] LABS: TOTAL CELLS COUNTED 100 #CELLS
[2020-09-06 09:41] LABS: PLATELET SUFFICIENCY NORMAL (NORMAL)
--- NOTE | 2020-09-06 10:08 | NUR ---
PHYSICAL THERAPY TREATMENT TIME: OUT 09:27 AM 15 MINUTES TOTAL Patient presented to therapy in supine with 4 liters of spO2 via nasal canula. Patient has report of no pain. Patient gives informed consent for treatment. Patient was identified by name and on wristband. Patient performed supine <> sittign on EOB with SBA. Patient sat on EOB with SBA. Patient completed STS <> EOB with SBA. Patient ambulated with Close Supervision and no Assistive Device for 44' x 1 with no LOB or significant SOB. Patient sat on EOB and performed LAQs, marches and heel/toe raises 2 X 10 reps each for strengthening the LEs in order to improve patient's functional functional mobility. Patient sit > supine in bed with SBA. Patient was left in supine in bed with head of bed elevated and call light within reach. Patient was 1:1 with this NC MACHINIST for 15 minutes total. LINWOOD NEGRETE NC MACHINIST
[2020-09-06 12:00] VITALS: BP 118/63
--- NOTE | 2020-09-06 13:02 | NUR ---
PATIENT HAD LEAKY IV TO RIGHT RIST. PLACED NEW IV IN R AC. PATIENT RESTING WELL NO COMPLAINTS AT THIS TIME.
[2020-09-06 16:00] VITALS: BP 110/58; BP 136/76
[2020-09-06 20:00] VITALS: BP 112/64
[2020-09-07] VITALS: BP 116/65
[2020-09-07 06:44] LABS: BASO % 0.1 % (0.0-1.0); EOS % 0.1 % (1.0-4.0); HEMATOCRIT 25.2 % (42.0-52.0); LYMPH # 1.8 10*3/uL (1.3-4.4); LYMPH % 9.5 % (27.0-41.0); MEAN CELL VOLUME 97.7 fl (80.0-94.0); MEAN CORPUSCULAR HGB 30.2 pg (27.0-31.0); MEAN PLATELET VOLUME 9.4 fl (9.6-12.3); MONO # 0.9 10*3/uL (0.1-1.0); MONO % 4.5 % (3.0-9.0); NEUT % 84.8 % (47.0-73.0); PLATELET COUNT AUTOMATED 365 10*3/uL (130-400); RED BLOOD COUNT 2.58 10*6/uL (4.50-5.90); RED CELL DISTRI WIDTH 14.4 % (0-14.5); WHITE BLOOD COUNT 18.9 10*3/uL (4.8-10.8)
--- NOTE | 2020-09-07 08:32 | NUR ---
OT NOTE Pt was seen this A.M. 1:1 for 14 minute OT session. Upon arrival pt was supine in bed. Pt identified by name and and had no complaints at this time. Pt presented to therapy with continuous 4L-O2 via NC which he remained on throughout the entire session. Pt transferred supine to sit EOB with supervision. While sitting EOB pt donned B socks with supervision. Functional mobility completed to the bathroom and back with supervision and fair O2 line safety/management. Upon arrival back to the EOB pt's SpO2 read 91%. Pt was educated on energy conservation throughout session. Pt declined all other tasks and transferred sit to supine with supervision. There he was left with call light in hand, tray table in place, and phone in reach. Continue with rec D/C plan to home with home health. JESSIKA Boles/Gato
--- NOTE | 2020-09-07 09:00 | NUR ---
case management visits with patient, he continues to decline a SNF and home health, he will return home when medically stable, case management will follow
[2020-09-07 09:15] VITALS: BP 132/69
--- NOTE | 2020-09-07 09:21 | NUR ---
PHYSICAL THERAPY TREATMENT TIME: IN 08:27 AM 15 MINUTES TOTAL Patient presented to therapy in supine in bed with head of bed elevated and bed alarm off. Patient is on 4 liters of spO2 via nasal canula. Patient gives informed consent for treatment. Patient was identified by name and on wristband. Patient supine <> sit EOB with Supervision. Patient sat on EOB Supervision. Patient performed STS <> EOB with Supervision. Patient ambulated 48' x 1 with no assistive device and Supervision. Patient did well at managing O2 line. Patient sit to supine in bed with Supervision. Patient was left in supine in bed with head of bed elevated call light within reach. Patient was 1:1 with this ENGINEER INTERN for 15 minutes total. LINWOOD NEGRETE PTA
--- NOTE | 2020-09-07 10:11 | NUR ---
PT RESTING IN BED/ NO DISTRESS NOTED. WILL MONITOR
[2020-09-07 12:00] VITALS: BP 117/56
[2020-09-07 16:00] VITALS: BP 110/60
--- NOTE | 2020-09-07 19:20 | NUR ---
REPORT RECEIVED. PT WATCHING TV
[2020-09-07 20:00] VITALS: BP 105/62
--- NOTE | 2020-09-07 22:00 | NUR ---
IN TO SEE PT. PT RESTING. VOICES NO COMPLAINTS. CALL LIGHT IN REACH
[2020-09-08] VITALS: BP 103/63
--- NOTE | 2020-09-08 01:00 | NUR ---
PT ASLEP AT THIS TIME. RESPIRATIONS EASY
--- NOTE | 2020-09-08 06:00 | NUR ---
PT SLEEPING; RESPIRATIONS EASY AND UNLABORED
[2020-09-08 06:17] LABS: BASO % 0.1 % (0.0-1.0); EOS # 0.1 10*3/uL (0.0-0.4); EOS % 0.5 % (1.0-4.0); HEMATOCRIT 23.5 % (42.0-52.0); LYMPH # 1.8 10*3/uL (1.3-4.4); LYMPH % 10.2 % (27.0-41.0); MEAN CELL VOLUME 96.7 fl (80.0-94.0); MEAN CORPUSCULAR HGB 30.5 pg (27.0-31.0); MEAN CORPUSCULAR HGB CONC 31.5 g/dl (33.0-37.0); MEAN PLATELET VOLUME 9.5 fl (9.6-12.3); MONO # 0.5 10*3/uL (0.1-1.0); MONO % 2.9 % (3.0-9.0); NEUT # 14.6 10*3/uL (2.3-7.9); NEUT % 85.3 % (47.0-73.0); PLATELET COUNT AUTOMATED 345 10*3/uL (130-400); RED BLOOD COUNT 2.43 10*6/uL (4.50-5.90); RED CELL DISTRI WIDTH 14.5 % (0-14.5); WHITE BLOOD COUNT 17.2 10*3/uL (4.8-10.8)
[2020-09-08 08:00] VITALS: BP 113/61
--- NOTE | 2020-09-08 08:00 | NUR ---
OT NOTE Pt was seen this A.M. 1:1 for 15 minute OT session. Upon arrival pt was supine in bed. Pt identified by name and and had no complaints at this time. Pt presented to therapy with continuous 5L-O2 via NC which he remained on throughout the entire session. Pt transferred supine to sit EOB with supervision. Pt then completed sit to stand from bed level with supervision and completed LB dressing while standing with SBA for safety. Functional mobility completed to the bathroom and back with supervision and good O2 line safety/management. Throughout pt self initated pursed lip breathing. Pt then transferred back into bed sit to supine with supervision. There he was left with call light in hand, tray table in place, and bed alarm activated for safety. Continue with rec D/C plan to home with home health. JESSIKA Boles/Gato
--- NOTE | 2020-09-08 09:00 | NUR ---
case management visits with patient, patient hoping to be discharged to home today, he declines any VNA or home needs
--- NOTE | 2020-09-08 09:58 | NUR ---
PHYSICAL THERAPY TREATMENT TIME: OUT 07:55 AM 12 MINUTES TOTAL Patient presented to therapy in supine with head of bed elevated and 5 liters of spO2 via nasal canula. Patient gives informed consent for treatment. Patient was identified by name and on wristband. Patient reports fatigue but no pain. Patient performed supine <> sitting on EOB with Supervision. Patient sat on EOB with Supervision. Patient completed STS <> EOB with Supervision. Patient ambulated 88' x 1 with no assistive device and 5 liters of spO2 with no LOB and moderate increased SOB. Patient sat on EOB and completed LAQs , marches and heel/toe raises x 15 reps each for strengthening the LEs in order to improve patient's functional mobility. Patient was left in supine in bed with head of bed elevated and call light within reach. Patient transfers <> the bedside commode by himself throughout the day. Patient was 1:1 with this SPINNING BATH PERSON for 15 minutes total. LINWOOD NEGRETE SPINNING BATH PERSON
[2020-09-08] MEDS ORDERED: PREDNISONE10 MG PO ×2 (10:34)
[2020-09-08] MEDS ORDERED: LEVOFLOXACIN750 M2 PO ×2 (10:34)
[2020-09-08 12:00] VITALS: BP 109/58
[2020-09-08 16:00] VITALS: BP 124/62
--- NOTE | 2020-09-08 16:30 | NUR ---
Discharge instructions reviewed with patient/family. Patient receptive and verbalizes understanding. Follow-up care arranged. Written instructions given to patient/family. ANA CRISTINA HARRIS
--- NOTE | 2020-09-09 07:46 | NUR ---
PHYSICAL THERAPY CO-SIGN I approve of the Physical Therapy notes written above. JOSAFAT SCHAFER PT, DPT
--- NOTE | 2020-09-09 10:13 | NUR ---
OCCUPATIONAL THERAPY CO-SIGN I approve of the Occupational Therapy notes written above. ASHLEY JONES OTR/Gato
== END 2020-09-08 16:30 | disposition home or self-care (01) | DRG 871 ==
LOC: ED 15:39 → EDHOLD 17:23 → 5E 17:23
PROVIDERS: Emergency Medicine; Hospitalist; Student in an Organized Health Care Education/Training Program; ADMIT Family Medicine; ATTEND Family Medicine
DX: A41.9 Sepsis, unspecified organism (principal); E43 Unspecified severe protein-calorie malnutrition; J96.21 Acute and chronic respiratory failure with hypoxia; J15.1 Pneumonia due to Pseudomonas; E87.1 Hypo-osmolality and hyponatremia; Z68.1 Body mass index [BMI] 19.9 or less, adult; R65.20 Severe sepsis without septic shock; D47.3 Essential (hemorrhagic) thrombocythemia; D53.9 Nutritional anemia, unspecified; R79.89 Other specified abnormal findings of blood chemistry; R79.82 Elevated C-reactive protein (CRP); J43.9 Emphysema, unspecified; E55.9 Vitamin D deficiency, unspecified; I10 Essential (primary) hypertension; J30.2 Other seasonal allergic rhinitis; M19.90 Unspecified osteoarthritis, unspecified site; K21.9 Gastro-esophageal reflux disease without esophagitis; F17.210 Nicotine dependence, cigarettes, uncomplicated; Z71.6 Tobacco abuse counseling; Z88.0 Allergy status to penicillin; Z83.3 Family history of diabetes mellitus; Z99.81 Dependence on supplemental oxygen; Z83.6 Family history of other diseases of the respiratory system; Z79.899 Other long term (current) drug therapy

== ENCOUNTER 2020-09-23 09:03 | Inpatient (IN) | payer MEDICARE ==
[~2020-09-23] VITALS: Ht 162.5 cm; Wt 36.3 kg
[2020-09-23] VITALS (12 sets, daily range): BP systolic 88–117; BP diastolic 53–65
[~2020-09-23 09:03] MED LIST changes: +LEVOFLOXACIN750 M2 PO
[2020-09-23 09:33] LABS: MEAN CELL VOLUME 90.3 fl (80.0-94.0); MEAN CORPUSCULAR HGB 28.7 pg (27.0-31.0); MEAN CORPUSCULAR HGB CONC 31.8 g/dl (33.0-37.0); MEAN PLATELET VOLUME 9.7 fl (9.6-12.3); PLATELET COUNT AUTOMATED 339 10*3/uL (130-400); RED CELL DISTRI WIDTH 14.7 % (0-14.5); WHITE BLOOD COUNT 23.9 10*3/uL (4.8-10.8)
[2020-09-23 09:44] LABS: ACT PARTIAL THROMBO TIME 22.9 SECONDS (20.0-32.1)
[2020-09-23 09:47] LABS: ABG BASE EXCESS -0.6 mmol/L (-2.0-2.0); ARTERIAL BLOOD GAS PH 7.495 (7.35-7.45)
[2020-09-23 09:53] LABS: BURR CELLS FEW; PLATELET SUFFICIENCY NORMAL (NORMAL); POLYCHROMASIA SLIGHT; TOTAL CELLS COUNTED 100 #CELLS
[2020-09-23 10:06] LABS: ALBUMIN 2.1 gm/dl (3.1-4.5); ALKALINE PHOSPHATASE 74 U/L (45-117); BUN 19 mg/dl (7-24); CHLORIDE 100 mmol/L (98-107); CREATININE 1.02 mg/dL (0.70-1.30); POTASSIUM 4.7 mmol/L (3.5-5.1); SGOT/AST 19 IU/L (3-35); SGPT/ALT 10 U/L (12-78); SODIUM 134 mmol/L (136-145); TOTAL PROTEIN 7.7 gm/dL (6.4-8.2)
[2020-09-23 10:08] LABS: TROPONIN I 0.057 ng/ml (<0.045)
--- NOTE | 2020-09-23 11:24 | NUR ---
PT WITH INCREASED SOB NOTED WITH SAO2 @ 77% @ 4L VIA NC.DR DURBIN AND RESPIRATORY NOTIFIED,PT CHANGED TO 6L VIA NRB WHILE AWAITING RESPIRATORY W/SAO2 @ 94%.
--- NOTE | 2020-09-23 12:47 | NUR ---
PT RESTING COMFORTABLY IN ROOM W/O ADDITIONAL COMPLAINTS VOICED,SAFETY PRECAUTIONS INTACT AND CALL LIGHT WITHIN REACH,WILL CONTINUE TO MONITOR.
[2020-09-23 14:54] LABS: BILIRUBIN Negative (Negative); BLOOD Negative (Negative); CLARITY Clear (Clear); COLOR Yellow (Yellow); GLUCOSE Negative (Negative); KETONE 1+ (Negative); LEUKO ESTERASE Negative (Negative); NITRITE Negative (Negative)
[2020-09-23 15:09] LABS: WBC 0-2 wbc/hpf (0-5)
--- NOTE | 2020-09-23 15:11 | NUR ---
DR ALVARADO NOTIFIED OF PT'S TRIPONIN VALUES AND PT DENIES C/P AN/OR SOB @ THIS TIME.
--- NOTE | 2020-09-23 16:04 | NUR ---
PT IS IS SLEEPING AND WITHOUT DISTRESS, CALL LIGHT IN REACH.
--- NOTE | 2020-09-23 16:49 | NUR ---
PT WITH HIGH FLOW NC DECREASED TO 6L @ THIS TIME,NO INCREASED SOB COMPLAINTS NOTED SAO2 @ 96% RA.
--- NOTE | 2020-09-23 17:14 | NUR ---
PT IS EATING DINNER TRAY IN BED WITH CALL LIGHT IN REACH.
--- NOTE | 2020-09-23 19:58 | NUR ---
CALL [facility] ABOUT ADMISSION, SPOKE TO YEMI ODONNELL. [facility] IS EXTREMELY BUSY AT THIS TIME. PT IS TO REMAIN IN ED UNTIL FURTHER NOTICE.
--- NOTE | 2020-09-23 21:54 | NUR ---
PT RESTING IN BED AT THIS TIME. NO VOICED COMPLAINTS. WILL CONTINUE TO MONITOR. CALL LIGHT WITHIN REACH.
--- NOTE | 2020-09-23 23:55 | NUR ---
DECREASE IN SPO2 NOTED AT THIS 87% HFNC 10L. RESPIRATORY AND DR. BRAVO CALLED FOR BIPAP. PATIENT DONT TOLERATE BIPAP. RESPIRATORY GOING TO TRY VENTURI MASK. WILL CONBTINUE TO MONITOR.
[2020-09-24] VITALS (11 sets, daily range): BP systolic 97–116; BP diastolic 51–72
--- NOTE | 2020-09-24 02:21 | NUR ---
PATIENT RESTING COMFORTABLE NO DISTRESS AT THIS TIME.
[2020-09-24 02:32] LABS: ABG BASE EXCESS -1.2 mmol/L (-2.0-2.0); ARTERIAL BLOOD GAS PH 7.443 (7.35-7.45)
[2020-09-24 05:27] LABS: BUN 23 mg/dl (7-24); CHLORIDE 107 mmol/L (98-107); CREATININE 0.84 mg/dL (0.70-1.30); POTASSIUM 3.9 mmol/L (3.5-5.1); SODIUM 137 mmol/L (136-145)
--- NOTE | 2020-09-24 05:36 | NUR ---
SLEEPING, NO DISTRESS NOTED
[2020-09-24 06:04] LABS: HEMATOCRIT 23.8 % (42.0-52.0); MEAN CELL VOLUME 91.5 fl (80.0-94.0); MEAN CORPUSCULAR HGB 28.5 pg (27.0-31.0); MEAN CORPUSCULAR HGB CONC 31.1 g/dl (33.0-37.0); MEAN PLATELET VOLUME 9.9 fl (9.6-12.3); PLATELET COUNT AUTOMATED 258 10*3/uL (130-400); RED CELL DISTRI WIDTH 15.2 % (0-14.5); WHITE BLOOD COUNT 12.7 10*3/uL (4.8-10.8)
--- NOTE | 2020-09-24 06:47 | NUR ---
PATIENT SLEEPING, NO DISTRESS NOTED
--- NOTE | 2020-09-24 06:56 | NUR ---
DR. BACON AWARE OF CONSULT
[2020-09-24 07:06] LABS: PLATELET SUFFICIENCY NORMAL (NORMAL); SCHISTOCYTES FEW; TOTAL CELLS COUNTED 100 #CELLS
--- NOTE | 2020-09-24 07:20 | NUR ---
PT REPORT ACCEPTED. PT AWAKE, WATCHING TV, DENIES ANY VOICED COMPLAINTS. BIPAP REMAINS IN PLACE, VITALS STABLE, POX 99% ON CURRENT BIPAP SETTINGS.
--- NOTE | 2020-09-24 08:29 | NUR ---
Director Of Dementia Operations in to talk to patient. Patient states lives at home with alone. There are 10 steps in the home. Physician: emelina malin [facility]acy: [facility] Home health services: none Patient's level of ADLs: MINIMAL ASSIST Patient has working utilities: all working DME: home oxygen, portable tanks, nebulizer, cane from [facility] Follow-up physician's appointment after d/c: will be made by hospitalist nurse director upon discharge Does patient want to access PORTAL?: no Discharge plan discussed with patient, he lives at home alone, has a cane for ambulation and is independent in adls, he wears oxygen at home and has portable tanks and a nebulizer from [facility]. patient is a 30 days readmission and last admission VNA and SNF were discussed and patient declines both services. will again discuss this with patient. ROHAN ESCOBAR
--- NOTE | 2020-09-24 08:45 | NUR ---
A 64, admitted to 5E, under the services of BRICE Varela DO with a diagnosis of COPD WITH HYPOXIA. Chief complaint is SOB, PRODUCTIVE COUGH. Patient arrived via ambulance from ER. Monitor applied. Initial assessment completed. Vital signs taken and recorded. BRICE VARELA DO notified of admission to the unit. Orders received. See assessment for past medical history, medications and allergies. Patient and/or family oriented to unit. [facility] visitation policy reviewed. Clothing/patient valuable form completed. ABIMAEL MCNALLY
--- NOTE | 2020-09-24 08:59 | NUR ---
NURSE REPORT TO [facility], BELLE VARGHESE, FOR CONTINUATION OF CARE.
--- NOTE | 2020-09-24 09:48 | NUR ---
MED REC UPDATED. MORRIS HENAO NOTIFIED.
--- NOTE | 2020-09-24 11:32 | NUR ---
ATTEMPTED TO OBTAIN WOUND CARE ORDERS FROM MRORIS HENAO. SAID SHE WOULD COME TO 5E TO TALK TO ME AND GIVE ORDERS.
--- NOTE | 2020-09-24 14:51 | NUR ---
ATTEMPTED TO CALL MORRIS HENAO FOR WOUND CARE ORDERS. NO ANSWER. WILL TRY AGAIN.
--- NOTE | 2020-09-24 15:32 | NUR ---
NOTIFIED OF KUB FINDINGS. SAID HE WOULD SEND A RESIDENT TO SEE THE PT. ALSO REC'D WOUND CARE ORDERS AT THIS TIME.
--- NOTE | 2020-09-24 15:40 | NUR ---
AND IN TO SEE PT AT THIS TIME.
--- NOTE | 2020-09-24 16:11 | NUR ---
IN TO SEE PT.
--- NOTE | 2020-09-24 23:53 | NUR ---
PT STATES HE DOES NOT WANT TO WEAR BIPAP TONIGHT. PT REMAINS ON 6L HIGH FLOW NASAL CANNULA
[2020-09-25] VITALS (10 sets, daily range): BP systolic 102–129; BP diastolic 53–71
[2020-09-25 06:33] LABS: MEAN CELL VOLUME 91.4 fl (80.0-94.0); MEAN CORPUSCULAR HGB 28.5 pg (27.0-31.0); MEAN CORPUSCULAR HGB CONC 31.2 g/dl (33.0-37.0); MEAN PLATELET VOLUME 9.9 fl (9.6-12.3); PLATELET COUNT AUTOMATED 297 10*3/uL (130-400); RED BLOOD COUNT 2.21 10*6/uL (4.50-5.90); RED CELL DISTRI WIDTH 15.3 % (0-14.5)
[2020-09-25 06:42] LABS: HEMATOCRIT 20.2 % (42.0-52.0)
--- NOTE | 2020-09-25 06:45 | NUR ---
DR. VINSON NOTIFIED OF CRITICAL HEMOGLOBIN OF 6.3 AND HEMATOCRIT OF 20.2.
[2020-09-25 07:20] LABS: PLATELET SUFFICIENCY NORMAL (NORMAL); ROULEAUX MODERATE; TOTAL CELLS COUNTED 100 #CELLS
--- NOTE | 2020-09-25 12:05 | NUR ---
BLOOD TRANSFUSION INITIATED AT THIS TIME. WILL MONITOR CLOSELY. CALL LIGHT WITHIN REACH.
--- NOTE | 2020-09-25 14:03 | NUR ---
TRANSFUSION COMPLETED. PT TOLERATED WELL. WILL CONT TO MONITOR CLOSELY. CALL LIGHT WITHIN REACH.
[2020-09-25 15:59] LABS: MEAN CELL VOLUME 89.6 fl (80.0-94.0); MEAN CORPUSCULAR HGB CONC 32.4 g/dl (33.0-37.0); MEAN PLATELET VOLUME 9.3 fl (9.6-12.3); PLATELET COUNT AUTOMATED 293 10*3/uL (130-400); RED BLOOD COUNT 2.79 10*6/uL (4.50-5.90); RED CELL DISTRI WIDTH 14.8 % (0-14.5)
[2020-09-25 16:15] LABS: PLATELET SUFFICIENCY NORMAL (NORMAL); TOTAL CELLS COUNTED 100 #CELLS
[2020-09-25 16:16] LABS: ACANTHOCYTES FEW; SCHISTOCYTES FEW
--- NOTE | 2020-09-25 23:00 | NUR ---
PATIENT REFUSING BIPAP
[2020-09-26] VITALS: BP 119/64
[2020-09-26 06:27] LABS: BASO % 0.1 % (0.0-1.0); HEMATOCRIT 25.5 % (42.0-52.0); LYMPH # 0.7 10*3/uL (1.3-4.4); LYMPH % 7.8 % (27.0-41.0); MEAN CELL VOLUME 90.4 fl (80.0-94.0); MEAN CORPUSCULAR HGB 28.7 pg (27.0-31.0); MEAN CORPUSCULAR HGB CONC 31.8 g/dl (33.0-37.0); MEAN PLATELET VOLUME 9.7 fl (9.6-12.3); MONO # 0.2 10*3/uL (0.1-1.0); MONO % 1.8 % (3.0-9.0); NEUT # 8.5 10*3/uL (2.3-7.9); NEUT % 88.7 % (47.0-73.0); PLATELET COUNT AUTOMATED 289 10*3/uL (130-400); RED BLOOD COUNT 2.82 10*6/uL (4.50-5.90); RED CELL DISTRI WIDTH 15.1 % (0-14.5); WHITE BLOOD COUNT 9.5 10*3/uL (4.8-10.8)
[2020-09-26 06:48] LABS: BUN 25 mg/dl (7-24); CHLORIDE 108 mmol/L (98-107); CREATININE 0.73 mg/dL (0.70-1.30); POTASSIUM 4.1 mmol/L (3.5-5.1); SODIUM 140 mmol/L (136-145)
[2020-09-26 08:00] VITALS: BP 122/60
--- NOTE | 2020-09-26 09:00 | NUR ---
case management talks with patient, discussed with him VNA and educated him on the services they provide, he states he is familiar with home health and doesn't feel he needs any home services at this time, case management will follow
[2020-09-26 12:00] VITALS: BP 122/63
[2020-09-26 16:00] VITALS: BP 119/59
[2020-09-26 20:00] VITALS: BP 114/67
--- NOTE | 2020-09-26 20:44 | NUR ---
24 HR chart check completed.
[2020-09-27] VITALS: BP 113/72
--- NOTE | 2020-09-27 07:14 | NUR ---
May convert patient to PO azithromycin if clinically feasible. All criteria met for IV to PO conversion. Thanks, Hakan London, PharmD, [facility]
[2020-09-27 08:00] VITALS: BP 113/69
--- NOTE | 2020-09-27 11:16 | NUR ---
case management talks with patient regarding buttermaker helper iv antibiotics and referral to a short term custodial. patient was agreeable to this. stated he would go and will return home when iv antibiotics are done. he had been to [facility] in the past and asked if he would like referred there or another local facility. he was agreeable to [facility]. product planner will send referral to [facility], hospitalist nurse director will order covid testing. PT/OT is ordered will await evals. case management will follow
--- NOTE | 2020-09-27 11:34 | NUR ---
Referral to [facility] Attn: Emy [phone]. Waiting for PT/OT assessment and Pending Covid Result.
--- NOTE | 2020-09-27 11:40 | NUR ---
PHYSICAL THERAPY Eval orders received attempted to see pt at the bedside, declining therapy at this time stating "I just don't want to do it". Educated pt on PT and looking at rehab, pt continues to decline therapy at this time. Spoke with primary nurse Catina culp pt declining therapy at this time, will follow at a later date. Anne-Marie Gamble PT
--- NOTE | 2020-09-27 11:40 | NUR ---
OT NOTE Occupational therapy order received, chart reviewed, and attemped to see patient at bedside. Following introductions, patient stated "I'm not doing this." Patient educated on benefits of OOB activity with occupational therapy and declined stating "I'm not doing this today...I get out of bed 3 or 4 times a day." Will check back at a later date for completion of an OT evaluation. Thank you. Orquidea Leal, OTR/L
[2020-09-27 12:00] VITALS: BP 112/68
--- NOTE | 2020-09-27 14:42 | NUR ---
[facility] willing to accept Pt. for SNF pending Final Antibiotics. Message sent to Megan Simental. Pt. needs approximately two more days Before he is ready for Discharge.
[2020-09-27 16:00] VITALS: BP 120/63
[2020-09-27 20:00] VITALS: BP 110/67
[2020-09-28] VITALS: BP 106/65
--- NOTE | 2020-09-28 04:24 | NUR ---
PATIENT SLEEPING. NO SIGNS OF DISTRESS. RESPIRATIONS EASY, NON LABORED. BED IN LOWEST POSITION,CALL LIGHT WITHIN REACH. WILL CONTINUE TO MONITOR.
[2020-09-28 06:34] LABS: HEMATOCRIT 28.5 % (42.0-52.0); MEAN CELL VOLUME 93.4 fl (80.0-94.0); MEAN CORPUSCULAR HGB 29.2 pg (27.0-31.0); MEAN CORPUSCULAR HGB CONC 31.2 g/dl (33.0-37.0); MEAN PLATELET VOLUME 9.5 fl (9.6-12.3); PLATELET COUNT AUTOMATED 289 10*3/uL (130-400); RED BLOOD COUNT 3.05 10*6/uL (4.50-5.90); RED CELL DISTRI WIDTH 14.9 % (0-14.5); WHITE BLOOD COUNT 13.5 10*3/uL (4.8-10.8)
[2020-09-28 06:43] LABS: ALBUMIN 1.9 gm/dl (3.1-4.5); ALKALINE PHOSPHATASE 50 U/L (45-117); BUN 22 mg/dl (7-24); CHLORIDE 105 mmol/L (98-107); CREATININE 0.78 mg/dL (0.70-1.30); POTASSIUM 4.2 mmol/L (3.5-5.1); SGOT/AST 13 IU/L (3-35); SGPT/ALT 20 U/L (12-78); SODIUM 136 mmol/L (136-145); TOTAL PROTEIN 6.1 gm/dL (6.4-8.2)
[2020-09-28 08:00] VITALS: BP 109/61
[2020-09-28 08:08] LABS: TOTAL CELLS COUNTED 100 #CELLS
[2020-09-28 08:09] LABS: PLATELET SUFFICIENCY NORMAL (NORMAL)
--- NOTE | 2020-09-28 08:28 | NUR ---
PT RESTING IN BED. NO DISTRESS NOTED. WILL MONITOR
--- NOTE | 2020-09-28 09:30 | NUR ---
PHYSICAL THERAPY Physical Therapy evaluation completed on 5th floor with full evaluation to follow. Recommend physical therapy per plan of care and SNF upon discharge. Thank you for this referral. Anne-Marie Gamble PT
--- NOTE | 2020-09-28 09:41 | NUR ---
Occupational Therapy evaluation completed on five with full evaluation to follow. Recommend occupational therapy per plan of care and SNF upon discharge. Thank you for this referral. AURELIA DOMINGUEZ OTR/L
[2020-09-28 12:00] VITALS: BP 97/54
--- NOTE | 2020-09-28 12:20 | NUR ---
BIOLOGICAL TECHNICIAN RECEIVED CALL FROM SURINDER CACERES STATING THIS PATIENT IS GOING TO NEED IV MEROPENUM IV 1GRAM 2X DAILY. BIOLOGICAL TECHNICIAN SPOKE WITH SERVICE MEMBER TRISTON JIMENEZ. BIOLOGICAL TECHNICIAN NOTIFIED [facility] TO CHECK TO SEE IF THIS IS SOMETHING THEY CAN HANDLE.
--- NOTE | 2020-09-28 13:42 | NUR ---
In to see patient in his room. He did participate with Therapy today. Therapy notes faxed to [facility]. Spoke with Emy at [facility] and Antibiotics that Pt. is currently on can be given at [facility]. Precert is waived Pt. can discharge to [facility] When he is Medically Stable.
[2020-09-28 16:00] VITALS: BP 110/63
[2020-09-28 20:00] VITALS: BP 98/60
--- NOTE | 2020-09-28 20:00 | NUR ---
PATIENT RESTING IN BED. ALERTX3.VOICES NO COMPLAINTS OR NEEDS AT THIS TIME. VSS. RESPIRATIONS EASY, NON LABORED. BED IN LOWEST POSITION,CALL LIGHT WITHIN REACH. WILL CONTINUE TO MONITOR.
[2020-09-29] VITALS: BP 106/57
[2020-09-29 08:00] VITALS: BP 103/56
--- NOTE | 2020-09-29 08:35 | NUR ---
PT RESTING IN BED/ NO DISTRESS NOTED. WILL MONITOR
--- NOTE | 2020-09-29 10:43 | NUR ---
PT TRANSPORTED TO . DR CAUSEY AND BLENDING LINE ATTENDANT NOTIFIED OF PT COVID POSITIVE
[2020-09-29 12:00] VITALS: BP 144/95
--- NOTE | 2020-09-29 13:40 | NUR ---
OT NOTE Pt was seen this P.M. 1:1 for 15 minute OT session. Upon arrival pt was supine in bed. Pt identified by name and and had no complaints at this time. Pt presented to therapy with continuous 4L-O2 via NC which he remained on throughout the entire session. Pt transferred supine to sit EOB with SBA. While sitting EOB pt adjusted B socks with SBA. Sit to stand completed from bed level with CGA for safety followed by functional mobility into the bathroom with CGA for safety. There he stood at the commode while completing toileting tasks with CGA for safety. Functional mobility completed back to the EOB for a seated rest break. Pt tolerated aprox 5 minutes of standing activity before sitting. Pt's SpO2 reading 95%. Attempted to complete other tasks at this time and pt continued to decline and then transferred sit to supine with SBA. There he was left with call light in hand, tray table in place, and bed alarm activated for safety. Throughout entire session airborne precautions were maintained. Continue with rec D/C plan to SNF. JESSIKA Boles/Gato
--- NOTE | 2020-09-29 13:50 | NUR ---
PHYSICAL THERAPY Patient presented to therapy in supine in bed with head of bed elevated and bed alarm off. Patient reports feeling tired. Patient gives informed consent for treatment. Patient was identified by name and on wristband. Patient is on 4 liters of spO2 via nasal canula. Patient performed supine to sititng on EOB with SBA. Patient has an IV infusing at this time. Patient is + covid 19. Patient performed sitting on EOB with SBA. Patient completed STS from EOB with SBA. Patient ambulated with no AD for 15' x 2 with one standing rest break at the end of the '. Patient required CGA - SBA for gait with no assistive device. Patient sat back on EOB with SBA. Patient completed sit EOB > supine in bed with SBA. Patient was left in supine in bed with head of bed elevated and bed alarm on. Patient was 1:1 with this PROFESSOR OF SPECIAL EDUCATION for 15 minutes total. LINWOOD NEGRETE PROFESSOR OF SPECIAL EDUCATION
--- NOTE | 2020-09-29 15:30 | NUR ---
[facility] IS NOT ABLE TO ACCEPT THIS PATIENT. DATA REPORT ANALYST INFORMED TRISTON JIMENEZ LPN GAS APPLIANCE SERVICER HELPER. DATA REPORT ANALYST INFORM RN HOSPITALIST COORDINATOR ROSARIO.
[2020-09-29 20:00] VITALS: BP 104/64
[2020-09-30] VITALS: BP 121/52
--- NOTE | 2020-09-30 01:57 | NUR ---
CHART CHECK COMPLETE.
[2020-09-30 07:07] LABS: ALBUMIN 1.9 gm/dl (3.1-4.5); ALKALINE PHOSPHATASE 71 U/L (45-117); BUN 22 mg/dl (7-24); CHLORIDE 98 mmol/L (98-107); CREATININE 0.89 mg/dL (0.70-1.30); POTASSIUM 4.5 mmol/L (3.5-5.1); SGOT/AST 19 IU/L (3-35); SGPT/ALT 19 U/L (12-78); SODIUM 131 mmol/L (136-145); TOTAL PROTEIN 5.7 gm/dL (6.4-8.2)
[2020-09-30 08:00] VITALS: BP 122/60; BP 96/52
[2020-09-30 08:16] LABS: MEAN CELL VOLUME 90.6 fl (80.0-94.0); MEAN CORPUSCULAR HGB 28.5 pg (27.0-31.0); MEAN CORPUSCULAR HGB CONC 31.4 g/dl (33.0-37.0); MEAN PLATELET VOLUME 9.2 fl (9.6-12.3); PLATELET COUNT AUTOMATED 235 10*3/uL (130-400); RED BLOOD COUNT 3.09 10*6/uL (4.50-5.90); RED CELL DISTRI WIDTH 15.1 % (0-14.5); WHITE BLOOD COUNT 17.1 10*3/uL (4.8-10.8)
[2020-09-30 08:52] LABS: SCHISTOCYTES FEW; TOTAL CELLS COUNTED 100 #CELLS
[2020-09-30 08:53] LABS: BURR CELLS MODERATE; PLATELET SUFFICIENCY NORMAL (NORMAL)
--- NOTE | 2020-09-30 09:34 | NUR ---
Referral faxed to [facility] Attn: Anu [phone].
[2020-09-30 12:00] VITALS: BP 128/76
--- NOTE | 2020-09-30 13:26 | NUR ---
Spoke with Anu at [facility] concerning referral. Currently still reviewing. application integration specialist at [place] Feels that Pt. is still too Medically Complex for SNF. Will Follow.
--- NOTE | 2020-09-30 13:56 | NUR ---
OT NOTE Attempted to see pt this P.M. for OT session and upon arrival pt was supine in bed asleep with O2 not in place which was running at 6L. Pt was very slow to respond, SpO2 reading 90% and NC donned with education on importance of wearing. Pt's SpO2 now reading 93%. Pt declined therapy at this time due to fatigue. No treatment provided. Continue with rec D/C plan to SNF. JESSIKA Boles/Gato
--- NOTE | 2020-09-30 15:30 | NUR ---
PHYSICAL THERAPY Patient was supine in bed upon this GUEST SPECIALIST entering patient's room at 1355. Patient declined therapy session saying he was too tired and also he would not wake up. It seemed as though he was lethargic. Patient is on 6 liters of spO2 VIA NC. Will check back with patient at a later date as he is in an isolation room for COVID-19. JESSIKA Lazo present as witness to this conversation. LINWOOD NEGRETE GUEST SPECIALIST
--- NOTE | 2020-09-30 15:47 | NUR ---
OCCUPATIONAL THERAPY CO-SIGN I approve of the Occupational Therapy notes written above. AURELIA DOMINGUEZ, OTR/L
--- NOTE | 2020-09-30 15:54 | NUR ---
PHYSICAL THERAPY CO-SIGN I approve of the Physical Therapy notes written above. Anne-Marie Gamble PT
[2020-09-30 16:00] VITALS: BP 101/61
--- NOTE | 2020-09-30 19:33 | NUR ---
CHART CHECK COMPLETE.
[2020-09-30 20:00] VITALS: BP 88/42
--- NOTE | 2020-09-30 21:33 | NUR ---
CALLED DR. BRAVO IN REGARDS TO PATIENT BP 88/42. RECHECK IN AN HOUR.
[2020-10-01] VITALS: BP 98/62
--- NOTE | 2020-10-01 07:30 | NUR ---
PT RESTING IN BED. RESPS EASY AND NON LABORED. NO S/S OF DISTRESS NOTED. VSS. WHITE BOARD UPDATED. POC DISCUSSED W PT. A/O X3.6L NC. ALAN. PICC NOTED TO R ARM-DRG C/D/I,SITE ASYMTP. WILL CONTINUE TO MONITOR. CALL LIGHT WITHIN REACH. FALL PRECAUTIONS MAINTAINED.
[2020-10-01 08:00] VITALS: BP 102/50
[2020-10-01 08:18] LABS: BASO % 0.1 % (0.0-1.0); EOS # 0.1 10*3/uL (0.0-0.4); EOS % 0.7 % (1.0-4.0); HEMATOCRIT 28.5 % (42.0-52.0); LYMPH # 1.1 10*3/uL (1.3-4.4); LYMPH % 7.8 % (27.0-41.0); MEAN CELL VOLUME 91.6 fl (80.0-94.0); MEAN CORPUSCULAR HGB 29.6 pg (27.0-31.0); MEAN CORPUSCULAR HGB CONC 32.3 g/dl (33.0-37.0); MEAN PLATELET VOLUME 10.1 fl (9.6-12.3); MONO # 0.6 10*3/uL (0.1-1.0); MONO % 4.2 % (3.0-9.0); NEUT # 11.5 10*3/uL (2.3-7.9); NEUT % 85.3 % (47.0-73.0); PLATELET COUNT AUTOMATED 219 10*3/uL (130-400); RED BLOOD COUNT 3.11 10*6/uL (4.50-5.90); RED CELL DISTRI WIDTH 15.4 % (0-14.5); WHITE BLOOD COUNT 13.5 10*3/uL (4.8-10.8)
[2020-10-01 08:48] LABS: ALBUMIN 1.9 gm/dl (3.1-4.5); ALKALINE PHOSPHATASE 54 U/L (45-117); BUN 26 mg/dl (7-24); CHLORIDE 100 mmol/L (98-107); CREATININE 0.95 mg/dL (0.70-1.30); POTASSIUM 4.6 mmol/L (3.5-5.1); SGOT/AST 11 IU/L (3-35); SGPT/ALT 16 U/L (12-78); SODIUM 131 mmol/L (136-145); TOTAL PROTEIN 5.9 gm/dL (6.4-8.2)
--- NOTE | 2020-10-01 08:57 | NUR ---
DR HUERTA NOTIFIED PT BLOOD SUGAR 49 ON LAB WORK. STATES TO GIVE DEXTROSE AND RE CHECK
--- NOTE | 2020-10-01 10:54 | NUR ---
BLOOD SUGAR IS NOW 180
[2020-10-01 10:59] LABS: ARTERIAL BLOOD GAS PH 7.491 (7.35-7.45)
[2020-10-01 12:00] VITALS: BP 110/45
--- NOTE | 2020-10-01 13:13 | NUR ---
PT SITTING UP IN BED. RESPS EASY AND NON LABORED. NO S/S OF DISTRESS NOTED. VSS .6L NC INTACT. WILL CONTINUE TO MONITOR. FALL PRECAUTIONS MAINTAINED. CALL LIGHT WITHIN REACH.
[2020-10-01 16:00] VITALS: BP 97/68
--- NOTE | 2020-10-01 19:48 | NUR ---
CHART CHECK COMPLETE.
[2020-10-01 20:00] VITALS: BP 112/68
[2020-10-02] VITALS: BP 114/67
--- NOTE | 2020-10-02 02:03 | NUR ---
TRIED TO INFUSE IV ANTIBIOTIC, PATIENT STATED "YOU ALWAYS COME IN HERE IN THE MIDDLE OF THE NIGHT AND WAKE ME UP. I JUST WANT TO SLEEP ONE NIGHT THROUGH." PATIENT REFUSING ANTIBIOTIC AT THIS TIME CALL PLACED TO DR. FRIEND CONTACTED AND RETIMING OK.
[2020-10-02 07:43] LABS: ALBUMIN 2.3 gm/dl (3.1-4.5); ALKALINE PHOSPHATASE 64 U/L (45-117); BUN 29 mg/dl (7-24); CHLORIDE 101 mmol/L (98-107); CREATININE 1.13 mg/dL (0.70-1.30); POTASSIUM 5.5 mmol/L (3.5-5.1); SGOT/AST 13 IU/L (3-35); SGPT/ALT 18 U/L (12-78); SODIUM 133 mmol/L (136-145); TOTAL PROTEIN 6.7 gm/dL (6.4-8.2)
[2020-10-02 08:00] VITALS: BP 97/60
[2020-10-02 08:37] LABS: BASO % 0.1 % (0.0-1.0); EOS # 0.1 10*3/uL (0.0-0.4); EOS % 0.4 % (1.0-4.0); HEMATOCRIT 33.5 % (42.0-52.0); LYMPH # 1.8 10*3/uL (1.3-4.4); LYMPH % 13.4 % (27.0-41.0); MEAN CELL VOLUME 91.5 fl (80.0-94.0); MEAN CORPUSCULAR HGB 28.1 pg (27.0-31.0); MEAN CORPUSCULAR HGB CONC 30.7 g/dl (33.0-37.0); MEAN PLATELET VOLUME 9.6 fl (9.6-12.3); MONO # 0.7 10*3/uL (0.1-1.0); MONO % 5.5 % (3.0-9.0); NEUT # 10.4 10*3/uL (2.3-7.9); NEUT % 79.7 % (47.0-73.0); PLATELET COUNT AUTOMATED 243 10*3/uL (130-400); RED BLOOD COUNT 3.66 10*6/uL (4.50-5.90); RED CELL DISTRI WIDTH 14.9 % (0-14.5); WHITE BLOOD COUNT 13.1 10*3/uL (4.8-10.8)
[2020-10-02 12:00] VITALS: BP 110/61
[2020-10-02 15:08] LABS: BUN 33 mg/dl (7-24); CHLORIDE 102 mmol/L (98-107); CREATININE 1.08 mg/dL (0.70-1.30); SODIUM 135 mmol/L (136-145)
[2020-10-02 16:00] VITALS: BP 109/63
[2020-10-02 20:00] VITALS: BP 129/76
--- NOTE | 2020-10-02 20:55 | NUR ---
PT RESTING IN BED. RESP-EASY AND REGULAR AT THIS TIME. OXYGEN IN USE. NO C/O AT THIS TIME. CALL LIGHT IN REACH. SEE SHIFT ASSESSMENT.
[2020-10-03] VITALS: BP 122/68
--- NOTE | 2020-10-03 | NUR ---
RESTING IN BED WITH EYES CLOSED, AWAKENS EASILY. CALL LIGHT IN REACH. SEE SHIFT ASSESSMENT.
--- NOTE | 2020-10-03 06:00 | NUR ---
RESTING IN BED WITH EYES CLOSED. RESP-EASY AND REGULAR. AWAKENS EASILY. PT WEIGHED. NO C/O AT THIS TIME. CALL LIGHT IN REACH.
[2020-10-03 07:31] LABS: BASO % 0.1 % (0.0-1.0); EOS % 0.3 % (1.0-4.0); HEMATOCRIT 29.3 % (42.0-52.0); LYMPH # 1.8 10*3/uL (1.3-4.4); LYMPH % 16.7 % (27.0-41.0); MEAN CELL VOLUME 91.6 fl (80.0-94.0); MEAN CORPUSCULAR HGB 28.4 pg (27.0-31.0); MEAN CORPUSCULAR HGB CONC 31.1 g/dl (33.0-37.0); MEAN PLATELET VOLUME 9.7 fl (9.6-12.3); MONO # 0.8 10*3/uL (0.1-1.0); MONO % 7.5 % (3.0-9.0); NEUT # 7.9 10*3/uL (2.3-7.9); NEUT % 74.6 % (47.0-73.0); PLATELET COUNT AUTOMATED 237 10*3/uL (130-400); WHITE BLOOD COUNT 10.6 10*3/uL (4.8-10.8)
[2020-10-03 08:00] VITALS: BP 111/60
[2020-10-03 08:04] LABS: ALBUMIN 2.1 gm/dl (3.1-4.5); ALKALINE PHOSPHATASE 55 U/L (45-117); BUN 31 mg/dl (7-24); CHLORIDE 104 mmol/L (98-107); CREATININE 1.03 mg/dL (0.70-1.30); LDH 209 U/L (87-241); POTASSIUM 4.6 mmol/L (3.5-5.1); SGOT/AST 13 IU/L (3-35); SGPT/ALT 13 U/L (12-78); SODIUM 136 mmol/L (136-145); TOTAL PROTEIN 6.2 gm/dL (6.4-8.2)
--- NOTE | 2020-10-03 09:50 | NUR ---
Clinical Up[facility]. Waiting on Updated PT/OT Notes. Spoke with Therapy this morning and they are working with Pt. and will Document when Complete.
--- NOTE | 2020-10-03 10:13 | NUR ---
OT NOTE Attempted to see pt this A.M. for OT session and upon arrival pt was supine in bed. Pt declined treatment at this time stating "I just don't feel up to it." Pt encouraged to participate and continued to decline with no other reasoning. Will check back at a later time/date and continue with POC as able. JESSIKA Boles/Gato
--- NOTE | 2020-10-03 11:35 | NUR ---
PHYSICAL THERAPY Patient presented to therapy in supine with head of bed leevated. Patient declined therapy this mornign saying he doesn't feel like it and he isnt feeling well. Patient check back later with patient. PPE protocol for airborn precautions followed maria esther and mai. JESSIKA Lazo present as witness to this conversation. LINWOOD NEGRETE SOFTWARE TECHNICAL LEAD
[2020-10-03 12:00] VITALS: BP 110/56
--- NOTE | 2020-10-03 13:14 | NUR ---
Updated Physical Therapy and Occupational Therapy Notes faxed to [facility]. Reached Out to Anu at [facility] to Inquire on Status of Referral.
--- NOTE | 2020-10-03 13:21 | NUR ---
Spoke with Resident who answered Dr. Stanton Phone. Notified them that [facility] is currently still reviewing. Will notify if accepted.
--- NOTE | 2020-10-03 14:22 | NUR ---
PHYSICAL THERAPY Patient was approached twice today for therapy session at 1330 and then again at 1420. No PPE PAPARs were available at 1330 and patient refused treatment at 1420 saying , "I DON'T WANT THERAPY TODAY"! Will try back with patient at a later date. LINWOOD NEGRETE BODY STRAIGHTENER
--- NOTE | 2020-10-03 14:23 | NUR ---
OT NOTE Attempted to see pt this P.M. for OT session and pt continued to decline stating "No!, I don't want to" pt would not give a reason and continued to decline. No treatment provided. Will check back at a later time/date and continue with POC as able. JESSIKA Boles/Gato
--- NOTE | 2020-10-03 15:41 | NUR ---
Pt. is ok to Discharge to [facility] pending Precert. Will Touch Base With Anu at [facility].
[2020-10-03 16:00] VITALS: BP 108/60; BP 113/56
--- NOTE | 2020-10-03 18:17 | NUR ---
PT REFUSED DRESSING CHANGE TO [facility]
--- NOTE | 2020-10-03 19:50 | NUR ---
PT RESTING IN BED. RESP-EASY AND REGULAR AT THIS TIME. OXYGEN IN USE. NO C/O AT THIS TIME. TOLERATED ROUTINE MED WITH NO PROBLEM. CALL LIGHT IN REACH. SEE SHIFT ASSESSMENT.
[2020-10-03 20:00] VITALS: BP 107/68
[2020-10-04] VITALS: BP 123/74
--- NOTE | 2020-10-04 | NUR ---
RESTING IN BED WITH EYES CLOSED. RESP-EASY AND REGULAR. OXYGEN IN USE. NO C/O AT THIS TIME. CALL LIGHT IN REACH. SEE SHIFT ASSESSMENT.
--- NOTE | 2020-10-04 04:00 | NUR ---
RESTING IN BED WITH EYES CLOSED. RESP-EASY AND REGULAR. OXYGEN IN USE. CALL LIGHT IN REACH.
[2020-10-04 06:17] LABS: ALBUMIN 2.1 gm/dl (3.1-4.5); ALKALINE PHOSPHATASE 52 U/L (45-117); BUN 30 mg/dl (7-24); CHLORIDE 105 mmol/L (98-107); CREATININE 1.04 mg/dL (0.70-1.30); LDH 217 U/L (87-241); POTASSIUM 4.3 mmol/L (3.5-5.1); SGOT/AST 13 IU/L (3-35); SGPT/ALT 14 U/L (12-78); SODIUM 136 mmol/L (136-145); TOTAL PROTEIN 5.9 gm/dL (6.4-8.2)
[2020-10-04 06:25] LABS: BASO % 0.2 % (0.0-1.0); EOS % 0.2 % (1.0-4.0); HEMATOCRIT 26.1 % (42.0-52.0); LYMPH % 22.5 % (27.0-41.0); MEAN CELL VOLUME 91.3 fl (80.0-94.0); MEAN CORPUSCULAR HGB 28.7 pg (27.0-31.0); MEAN CORPUSCULAR HGB CONC 31.4 g/dl (33.0-37.0); MEAN PLATELET VOLUME 10.2 fl (9.6-12.3); MONO # 0.7 10*3/uL (0.1-1.0); MONO % 8.1 % (3.0-9.0); PLATELET COUNT AUTOMATED 240 10*3/uL (130-400); RED BLOOD COUNT 2.86 10*6/uL (4.50-5.90); RED CELL DISTRI WIDTH 14.8 % (0-14.5); WHITE BLOOD COUNT 8.9 10*3/uL (4.8-10.8)
[2020-10-04 08:00] VITALS: BP 103/61
--- NOTE | 2020-10-04 10:00 | NUR ---
OT NOTE Pt was seen this A.M. 1:1 for 15 minute OT session. Upon arrival pt was supine in bed. Pt identified by name and . Pt presented to therapy with continuous 7L-O2 via NC which he remained on throughout the entire session. Pt transferred supine to sit EOB with supervision. While sitting EOB pt completed BUE AROM over all planes for 1 X 10 to increase and restore maximum functional use and strength. Attempted to complete standing and functional mobility tasks and pt declined. Pt transferred back into bed sit to supine with supervision. There he was left with call light in hand, tray table in place, and phone in reach. Pt's SpO2 within functional limits throughout session. Airborne precautions maintained. Continue with rec D/C plan to SNF. JESSIKA Boles/Gato
--- NOTE | 2020-10-04 11:19 | NUR ---
Pt. discharging today to [facility]. Call Placed to Pt. Clementina Jauregui and notified her that Pt. was discharging today. Pt. is aware that he is discharging today. Transportation arranged with [facility] to Transport with communications equipment supervisor time 2:00 p.m. Notified Anu at [facility]. 30 Day Hospital Exemption Completed Online In HENS. Faxed Copy to Anu at [facility] and Copy Placed in Pt. Chart.
[2020-10-04] MEDS ORDERED: PREDNISONE10 MG PO (11:21)
[2020-10-04] MEDS ORDERED: MERREM IV1 GM IV (11:21)
[2020-10-04] MEDS ORDERED: SEPTDS PO (11:21)
--- NOTE | 2020-10-04 11:23 | NUR ---
PHYSICAL THERAPY Patient presented to therapy in supine with head of bed elevated and bed alarm off. Patient is on 7 liters of spO2 via nasal canula. Patient gives informed consent for treatment. Patient was identified by name and on wristband. Patient performed completed supine to sitting on EOB with SBA. Patient sat on EOB with Close Supervision. Patient performed sittign on EOB bilateral LE ther ex including LAQs, marches, hip abduction and heel/toe raises for strengthenign the LEs in order to improve patient's functional mobility. Patient declined to stand or ambulate. Patient completed sitting on EOB > supine with SBA. Patient was left supine in bed with call light within reach and bed alarm on. Patient was 1:1 with this FIELD SERVICE MANAGER for 15 minutes total. LINWOOD NEGRETE FIELD SERVICE MANAGER
[2020-10-04 12:00] VITALS: BP 105/67
--- NOTE | 2020-10-04 12:43 | NUR ---
PT REFUSING D/C PHOTOS TO [facility] PER PROTOCOL.
--- NOTE | 2020-10-04 13:16 | NUR ---
Discharge Paperwork Faxed to [facility] Attn: Anu.
--- NOTE | 2020-10-04 14:03 | NUR ---
Transportation occupational safety specialist time Changed due to No Oxygen Concentrator Available at [facility] until after 4:00 p.m. Notified Nurse and Mane Cleark on 4E.
[2020-10-04 16:00] VITALS: BP 103/61
--- NOTE | 2020-10-04 17:41 | NUR ---
PT BECAME VERY UPSET AND ANXIOUS AND STARTED HYPERVENTILATING. AMBULANCE ARRIVED AND WAS ATTEMPTING TO TRANSPORT TO [facility]. PT DESAT TO 72% AND EMT AND I REPOSITIONED PT WHO WAS YELLING PROFANITIES. INCREASED 02 TO 6LNC.ENCOURAGED PT TO STOP AND SLOW BREATHING. PLACED PT ON FM D/T HIM STATING "I CAN'T BREATH THROUGH MY NOSE". AFTER MUCH ENCOURAGEMENT PT SPO2 91% ON 6LNC.DR NASCIMENTO NOTIFIED OF PT.HE ROUNDED AND ORDER RECIEVED FOR SPO2 MONITOR BUT THERE ARE NONE AVAILABLE AT THIS TIME.WILL CONTINUE TO MONITOR.CALL LIGHT IN REACH
--- NOTE | 2020-10-04 17:48 | NUR ---
PT TO STAY TONIGHT TO MONITOR PER DR NASCIMENTO. WILL NOTIFIY [facility].
[2020-10-04 20:00] VITALS: BP 94/62
--- NOTE | 2020-10-04 20:10 | NUR ---
PT RESTING IN BED WITH EYES CLOSED. AWAKENS EASILY. RESP-EASY AND REGULAR. OXYGEN IN USE. NO C/O AT THIS TIME. TOLERATED ROUTINE MED WITHN O PROBLEM. CALL LIGHT IN REACH.
[2020-10-05] VITALS: BP 107/68
[2020-10-05 07:07] LABS: BASO % 0.2 % (0.0-1.0); EOS % 0.2 % (1.0-4.0); HEMATOCRIT 28.6 % (42.0-52.0); LYMPH # 1.7 10*3/uL (1.3-4.4); LYMPH % 15.6 % (27.0-41.0); MEAN CELL VOLUME 90.8 fl (80.0-94.0); MEAN CORPUSCULAR HGB 28.3 pg (27.0-31.0); MEAN CORPUSCULAR HGB CONC 31.1 g/dl (33.0-37.0); MEAN PLATELET VOLUME 9.6 fl (9.6-12.3); MONO # 0.8 10*3/uL (0.1-1.0); MONO % 7.1 % (3.0-9.0); NEUT # 8.2 10*3/uL (2.3-7.9); NEUT % 76.2 % (47.0-73.0); PLATELET COUNT AUTOMATED 253 10*3/uL (130-400); RED BLOOD COUNT 3.15 10*6/uL (4.50-5.90); RED CELL DISTRI WIDTH 15.2 % (0-14.5); WHITE BLOOD COUNT 10.8 10*3/uL (4.8-10.8)
[2020-10-05 07:34] LABS: ALBUMIN 2.2 gm/dl (3.1-4.5); BUN 25 mg/dl (7-24); CHLORIDE 105 mmol/L (98-107); POTASSIUM 4.4 mmol/L (3.5-5.1); SODIUM 136 mmol/L (136-145)
[2020-10-05 07:38] LABS: ALKALINE PHOSPHATASE 54 U/L (45-117); CREATININE 1.08 mg/dL (0.70-1.30); LDH 209 U/L (87-241); SGOT/AST 13 IU/L (3-35); SGPT/ALT 14 U/L (12-78); TOTAL PROTEIN 6.3 gm/dL (6.4-8.2)
[2020-10-05 08:00] VITALS: BP 102/70
--- NOTE | 2020-10-05 08:30 | NUR ---
Report given by Nurse and Steel Welder that Patient did not discharge due to Having an episode of Difficult Breathing. Spoke with Anu at [facility] and Advised that Nurse Practitioner Megan had not made Rounds yet but was currently doing that. Will notify Anu. Call Placed to Pt. Room with Assistance of ALCIDES Patel. Pt. did not want to talk to Soldering Machine Operator Automatic but it was explained to him that he Would be receiving the Same Care at [place] That he is receiving here at the Hospital. Reminded Patient that [facility] had declined him earlier due to No Bed Availability and the fact that he had tested Positive for the Virus. Pt. Argumentive and Confused at times thinking that he was already in a [facility]. Was not able to complete the Call with Patient before he abrubtly ended the Call.
--- NOTE | 2020-10-05 09:30 | NUR ---
OT NOTE Attempted to see pt this A.M. for OT session and upon arrival pt was supine in bed with 6L-O2 via Venturi mask. Pt declined therapy stating "I had a bad night and I don't feel up to it." Pt continued to decline at this time. No treatment provided. Will check back at a later time and continue with POC as able. MAKAYLA Boles
--- NOTE | 2020-10-05 09:32 | NUR ---
OBTAINED AM VITALS. PT SPO2 85% ON 6LFM. REPOSITIONED FOR COMFORT ENCOURAGED DEEP BREATHING. PT ANXIOUS AT THIS TIME R/T D/C. NOTIFIED MORRIS LUND CNP.ORDERS RECIEVED.SPO2 90% ON 6LFM. CALL LIGHT IN REACH.
--- NOTE | 2020-10-05 09:51 | NUR ---
PHYSICAL THERAPY Patient was approached for AM therapy session and he doesn't want to have therapy at this time because he is fatiigued and not feeling well. Patient declined treatment at this time. Patient is on vernturi mask. PPE for airborne precautions followed as per protocol. LINWOOD NEGRETE PHYSIOTHERAPY ASSISTANT
[2020-10-05 10:16] LABS: ABG BASE EXCESS 1.6 mmol/L (-2.0-2.0); ARTERIAL BLOOD GAS PH 7.479 (7.35-7.45)
[2020-10-05 11:46] VITALS: BP 106/76
--- NOTE | 2020-10-05 12:42 | NUR ---
Spoke with Megan Simental Nurse Practitioner concerning Planned Discharge. Megan states that Pt. is able to discharge today. Contacted Anu at [facility] and Advised her of Planned Discharge. Transportation Arranged with [facility] to Transport with tool radial drill press set up operator time 1:30. Family made aware yesterday of Pt. going to SNF.
[2020-10-05] MEDS ORDERED: ATIVAN1 MG PO (12:43)
--- NOTE | 2020-10-05 12:55 | NUR ---
OT NOTE Attempted to see pt this P.M. for OT session and upon arrival pt was supine in bed. Pt presented to therapy with 6L-O2 via venturi mask. Pt declined therapy at this time due to the length of his O2 line. Educated pt that we had enough to complete our tasks or could add more and pt continued to decline. Will check back at a later time/date and continue with POC as able. JESSIKA Boles/Gato
--- NOTE | 2020-10-05 13:10 | NUR ---
CAM SPECIALIST HAS ATTEMPTED TO CALL THIS PATIENT ROOM SEVERAL TIMES TO NO ANSWER. CAM SPECIALIST ATTEMPTED TO CALL PHONE NUMBER LISTED FOR THIS PATIENT, IT IS NOT ACCEPTING CALLS AT THIS TIME.
--- NOTE | 2020-10-05 13:40 | NUR ---
Stood By While Ambulance Loaded Pt. onto [facility]. Reassured Pt. that he would receive [facility] and that his family is aware he went to [facility]. Pt. Voiced Understanding.
--- NOTE | 2020-10-05 13:40 | NUR ---
Discharge instructions reviewed with patient/family. Patient receptive and verbalizes understanding. Follow-up care arranged. Written instructions given to patient/family.REPORT CALLED TO ELAYNE @ [facility] LESLI AYALA
--- NOTE | 2020-10-05 16:34 | NUR ---
PHYSICAL THERAPY CO-SIGN I approve of the Physical Therapy notes written above. JOSAFAT SCHAFER PT,DPT
--- NOTE | 2020-10-06 08:03 | NUR ---
OCCUPATIONAL THERAPY CO-SIGN I approve of the Occupational Therapy notes written above. AURELIA DOMINGUEZ, OTR/L
== END 2020-10-05 13:40 | disposition other institution (70) | DRG 871 ==
LOC: ED 09:03 → EDHOLD 10:01 → 5E 10:01 → 4E 10:01 → ICCU 18:34 → EDHOLD 18:34 → ICCU 18:34 → 5E 09-24 08:31 → 4E 09-29 10:36
PROVIDERS: Emergency Medicine; Internal Medicine; Internal Medicine Critical Care Medicine; Registered Nurse; Student in an Organized Health Care Education/Training Program; ADMIT Emergency Medicine; ATTEND Emergency Medicine
PROC: 5A0935A Assistance with Respiratory Ventilation, Less than 24 Consecutive Hours, High Flow/Velocity Cannula (ICD-10-PCS; 2020-09-23)
PROC: 5A09357 Assistance with Respiratory Ventilation, Less than 24 Consecutive Hours, Continuous Positive Airway Pressure (ICD-10-PCS; 2020-09-23)
PROC: 5A09357 Assistance with Respiratory Ventilation, Less than 24 Consecutive Hours, Continuous Positive Airway Pressure (ICD-10-PCS; 2020-09-24)
PROC: 30233N1 Transfusion of Nonautologous Red Blood Cells into Peripheral Vein, Percutaneous Approach (ICD-10-PCS; principal; 2020-09-25)
PROC: 02HV33Z Insertion of Infusion Device into Superior Vena Cava, Percutaneous Approach (ICD-10-PCS; 2020-09-29)
DX: A41.9 Sepsis, unspecified organism (principal); U07.1 COVID-19; J96.21 Acute and chronic respiratory failure with hypoxia; E43 Unspecified severe protein-calorie malnutrition; J12.89 Other viral pneumonia; E87.3 Alkalosis; E87.1 Hypo-osmolality and hyponatremia; J44.0 Chronic obstructive pulmonary disease with (acute) lower respiratory infection; J44.1 Chronic obstructive pulmonary disease with (acute) exacerbation; N13.30 Unspecified hydronephrosis; Z68.1 Body mass index [BMI] 19.9 or less, adult; R65.20 Severe sepsis without septic shock; M19.90 Unspecified osteoarthritis, unspecified site; K21.9 Gastro-esophageal reflux disease without esophagitis; I10 Essential (primary) hypertension; J30.2 Other seasonal allergic rhinitis; D53.9 Nutritional anemia, unspecified; F17.210 Nicotine dependence, cigarettes, uncomplicated; E55.9 Vitamin D deficiency, unspecified; F41.1 Generalized anxiety disorder; Z88.0 Allergy status to penicillin; Z83.6 Family history of other diseases of the respiratory system; Z83.3 Family history of diabetes mellitus; Z99.81 Dependence on supplemental oxygen; Z79.899 Other long term (current) drug therapy

== ENCOUNTER 2020-10-22 09:29 | Emergency (ER) | payer MEDICARE ==
[~2020-10-22] VITALS: Wt 38.6 kg
[~2020-10-22 09:29] MED LIST changes: +ATIVAN1 MG PO; +MERREM IV1 GM IV; +SEPTDS PO
== END 2020-10-22 11:00 | disposition home or self-care (01) ==
LOC: ED 09:29
DX: Z45.2 Encounter for adjustment and management of vascular access device (principal); J44.9 Chronic obstructive pulmonary disease, unspecified; M19.90 Unspecified osteoarthritis, unspecified site; K21.9 Gastro-esophageal reflux disease without esophagitis; I10 Essential (primary) hypertension; F17.210 Nicotine dependence, cigarettes, uncomplicated; Z88.0 Allergy status to penicillin; Z79.899 Other long term (current) drug therapy; Z79.2 Long term (current) use of antibiotics; Z90.89 Acquired absence of other organs

== ENCOUNTER 2020-11-06 11:11 | Inpatient (IN) | payer MEDICARE ==
[~2020-11-06] VITALS: Ht 162.5 cm; Wt 40.8 kg
[2020-11-06 11:20] VITALS: BP 111/66
[2020-11-06 11:41] LABS: ABG BASE EXCESS -0.3 mmol/L (-2.0-2.0); ARTERIAL BLOOD GAS PH 7.454 (7.35-7.45)
[2020-11-06 11:51] LABS: BASO # 0.1 10*3/uL (0.0-0.1); BASO % 0.3 % (0.0-1.0); EOS # 0.2 10*3/uL (0.0-0.4); EOS % 0.9 % (1.0-4.0); HEMATOCRIT 28.2 % (42.0-52.0); LYMPH # 1.2 10*3/uL (1.3-4.4); LYMPH % 6.1 % (27.0-41.0); MEAN CELL VOLUME 99.3 fl (80.0-94.0); MEAN CORPUSCULAR HGB 29.6 pg (27.0-31.0); MEAN CORPUSCULAR HGB CONC 29.8 g/dl (33.0-37.0); MEAN PLATELET VOLUME 8.9 fl (9.6-12.3); MONO # 1.2 10*3/uL (0.1-1.0); NEUT # 16.7 10*3/uL (2.3-7.9); NEUT % 86.2 % (47.0-73.0); PLATELET COUNT AUTOMATED 378 10*3/uL (130-400); RED BLOOD COUNT 2.84 10*6/uL (4.50-5.90); RED CELL DISTRI WIDTH 17.6 % (0-14.5); WHITE BLOOD COUNT 19.3 10*3/uL (4.8-10.8)
[2020-11-06 12:02] LABS: ACT PARTIAL THROMBO TIME 25.1 SECONDS (20.0-32.1)
[2020-11-06 12:08] LABS: ALBUMIN 2.6 gm/dl (3.1-4.5); ALKALINE PHOSPHATASE 42 U/L (45-117); BUN 13 mg/dl (7-24); CHLORIDE 105 mmol/L (98-107); SGOT/AST 10 IU/L (3-35); SGPT/ALT 7 U/L (12-78); SODIUM 134 mmol/L (136-145); TROPONIN I 0.029 ng/ml (<0.045)
[2020-11-06 15:00] VITALS: BP 105/65
[2020-11-06 16:00] VITALS: BP 108/67
[2020-11-06 17:30] VITALS: BP 97/57
[2020-11-06 18:00] VITALS: BP 108/67
[2020-11-06 20:14] VITALS: BP 102/58; BP 140/93
[2020-11-07] VITALS: BP 103/59
[2020-11-07 06:16] LABS: HEMATOCRIT 25.2 % (42.0-52.0); MEAN CELL VOLUME 96.9 fl (80.0-94.0); MEAN PLATELET VOLUME 9.3 fl (9.6-12.3); PLATELET COUNT AUTOMATED 363 10*3/uL (130-400); RED CELL DISTRI WIDTH 17.4 % (0-14.5); WHITE BLOOD COUNT 15.5 10*3/uL (4.8-10.8)
[2020-11-07 06:18] LABS: ALBUMIN 2.1 gm/dl (3.1-4.5); ALKALINE PHOSPHATASE 42 U/L (45-117); BUN 14 mg/dl (7-24); CHLORIDE 105 mmol/L (98-107); CREATININE 0.78 mg/dL (0.70-1.30); POTASSIUM 4.7 mmol/L (3.5-5.1); SGOT/AST 6 IU/L (3-35); SGPT/ALT 6 U/L (12-78); SODIUM 135 mmol/L (136-145); TOTAL PROTEIN 6.2 gm/dL (6.4-8.2)
[2020-11-07 06:23] LABS: FREE T4 1.11 ng/dl (0.76-1.46); THYROID STIM HORMONE (HS) 0.394 uIU/ml (0.358-4.75)
[2020-11-07 06:50] VITALS: BP 102/59
[2020-11-07 07:15] LABS: BURR CELLS FEW; OVALOCYTES FEW; PLATELET SUFFICIENCY NORMAL (NORMAL); POLYCHROMASIA SLIGHT; TOTAL CELLS COUNTED 100 #CELLS
[2020-11-07 11:33] VITALS: BP 100/57
[2021-01-31] MEDS ORDERED: RA FISH OIL 1,1 EACH PO (10:08)
[2021-01-31] MEDS ORDERED: [UNRECOGNIZED DRUG - OTHER] PO (10:19)
[2021-01-31] MEDS ORDERED: ALLERGY RELIE15.8 ML NAS (10:26)
[2021-01-31] MEDS ORDERED: MAGNESIUM500 MG PO (10:30)
[2021-02-03] MEDS ORDERED: PREDNISONE10 MG PO (12:52)
[2021-02-03] MEDS ORDERED: NATURE'S BLEND F1 MG PO (12:52)
[2021-02-03] MEDS ORDERED: DOXYCYCLINE100 M3 PO (12:52)
[2021-02-03] MEDS ORDERED: OXYGEN NAS (12:53)
== END 2020-11-07 15:44 | disposition home or self-care (01) | DRG 871 ==
LOC: ED 11:11 → EDHOLD 12:09
PROVIDERS: Emergency Medicine; Internal Medicine; ADMIT Internal Medicine; ATTEND Internal Medicine
DX: A41.9 Sepsis, unspecified organism (principal); J18.9 Pneumonia, unspecified organism; E87.3 Alkalosis; J96.11 Chronic respiratory failure with hypoxia; E87.1 Hypo-osmolality and hyponatremia; J43.9 Emphysema, unspecified; M19.90 Unspecified osteoarthritis, unspecified site; K21.9 Gastro-esophageal reflux disease without esophagitis; F17.210 Nicotine dependence, cigarettes, uncomplicated; R65.20 Severe sepsis without septic shock; D53.9 Nutritional anemia, unspecified; J30.2 Other seasonal allergic rhinitis; I10 Essential (primary) hypertension; Z99.81 Dependence on supplemental oxygen; Z82.5 Family history of asthma and other chronic lower respiratory diseases; Z83.3 Family history of diabetes mellitus; Z88.0 Allergy status to penicillin; Z79.51 Long term (current) use of inhaled steroids; Z79.899 Other long term (current) drug therapy

== ENCOUNTER 2020-11-18 10:02 | Inpatient (IN) | payer MEDICARE ==
[~2020-11-18] VITALS: Ht 162.5 cm; Wt 40.8 kg
[2020-11-18 10:03] VITALS: BP 131/77
[2020-11-18 10:47] LABS: BASO # 0.1 10*3/uL (0.0-0.1); BASO % 0.6 % (0.0-1.0); EOS # 0.1 10*3/uL (0.0-0.4); EOS % 0.8 % (1.0-4.0); LYMPH # 2.3 10*3/uL (1.3-4.4); LYMPH % 16.1 % (27.0-41.0); MEAN CELL VOLUME 95.9 fl (80.0-94.0); MEAN CORPUSCULAR HGB 29.1 pg (27.0-31.0); MEAN CORPUSCULAR HGB CONC 30.3 g/dl (33.0-37.0); MEAN PLATELET VOLUME 8.9 fl (9.6-12.3); MONO # 0.8 10*3/uL (0.1-1.0); MONO % 5.5 % (3.0-9.0); NEUT % 76.2 % (47.0-73.0); PLATELET COUNT AUTOMATED 560 10*3/uL (130-400); RED BLOOD COUNT 3.44 10*6/uL (4.50-5.90); RED CELL DISTRI WIDTH 16.8 % (0-14.5); WHITE BLOOD COUNT 14.4 10*3/uL (4.8-10.8)
[2020-11-18 10:58] LABS: ACT PARTIAL THROMBO TIME 23.6 SECONDS (20.0-32.1); INTERNATIONAL NORM RATIO 0.9 (2.0-3.5)
[2020-11-18 11:07] LABS: ALBUMIN 3.1 gm/dl (3.1-4.5); ALKALINE PHOSPHATASE 45 U/L (45-117); BUN 12 mg/dl (7-24); CHLORIDE 102 mmol/L (98-107); CREATININE 0.91 mg/dL (0.70-1.30); POTASSIUM 3.9 mmol/L (3.5-5.1); SGOT/AST 9 IU/L (3-35); SGPT/ALT 10 U/L (12-78); SODIUM 136 mmol/L (136-145)
[2020-11-18 11:13] LABS: TROPONIN I < 0.015 ng/ml (<0.045)
[2020-11-18 11:25] VITALS: BP 117/65
[2020-11-18 12:59] VITALS: BP 133/75
[2020-11-18 13:30] VITALS: BP 127/71
[2020-11-18] MEDS ORDERED: XARE20MG PO (14:35)
[2020-11-18] MEDS ORDERED: VITAMIN D3125 MCG PO (14:35)
[2020-11-18] MEDS ORDERED: AMLODIPINE BESYL5 MG PO (14:36)
[2020-11-18 16:00] VITALS: BP 113/70
[2020-11-18 20:00] VITALS: BP 105/68
[2020-11-19] VITALS: BP 119/71
[2020-11-19 05:58] LABS: BUN 20 mg/dl (7-24); CHLORIDE 105 mmol/L (98-107); CREATININE 0.97 mg/dL (0.70-1.30); POTASSIUM 4.5 mmol/L (3.5-5.1); SODIUM 136 mmol/L (136-145)
[2020-11-19 06:17] LABS: HEMATOCRIT 26.2 % (42.0-52.0); MEAN CELL VOLUME 96.7 fl (80.0-94.0); MEAN CORPUSCULAR HGB 29.2 pg (27.0-31.0); MEAN CORPUSCULAR HGB CONC 30.2 g/dl (33.0-37.0); PLATELET COUNT AUTOMATED 414 10*3/uL (130-400); RED BLOOD COUNT 2.71 10*6/uL (4.50-5.90); RED CELL DISTRI WIDTH 16.8 % (0-14.5); WHITE BLOOD COUNT 12.1 10*3/uL (4.8-10.8)
[2020-11-19 07:08] LABS: PLATELET SUFFICIENCY HIGH (NORMAL); TOTAL CELLS COUNTED 100 #CELLS
[2020-11-19 07:09] LABS: ACANTHOCYTES FEW; BURR CELLS FEW
[2020-11-19 08:00] VITALS: BP 130/72
[2020-11-19 12:00] VITALS: BP 123/61
[2020-11-19 16:00] VITALS: BP 115/64
[2020-11-19 20:00] VITALS: BP 121/67
[2020-11-20] VITALS: BP 120/66
[2020-11-20 06:44] LABS: BUN 23 mg/dl (7-24); CHLORIDE 111 mmol/L (98-107); CREATININE 0.87 mg/dL (0.70-1.30); POTASSIUM 4.5 mmol/L (3.5-5.1); SODIUM 140 mmol/L (136-145)
[2020-11-20 06:46] LABS: HEMATOCRIT 26.5 % (42.0-52.0); MEAN CELL VOLUME 97.4 fl (80.0-94.0); MEAN CORPUSCULAR HGB CONC 29.8 g/dl (33.0-37.0); PLATELET COUNT AUTOMATED 428 10*3/uL (130-400); RED BLOOD COUNT 2.72 10*6/uL (4.50-5.90); RED CELL DISTRI WIDTH 16.9 % (0-14.5); WHITE BLOOD COUNT 16.1 10*3/uL (4.8-10.8)
[2020-11-20 07:54] LABS: ACANTHOCYTES FEW; BURR CELLS FEW; PLATELET SUFFICIENCY HIGH (NORMAL); SCHISTOCYTES FEW; TOTAL CELLS COUNTED 100 #CELLS
[2020-11-20 08:00] VITALS: BP 112/66
[2020-11-20 08:54] VITALS: BP 106/58
[2020-11-20 10:42] LABS: BILIRUBIN Negative (Negative); BLOOD Negative (Negative); CLARITY Clear (Clear); COLOR Yellow (Yellow); GLUCOSE 2+ (Negative); KETONE Negative (Negative); LEUKO ESTERASE Negative (Negative); NITRITE Negative (Negative); PH 5.5 (4.5-8.0); SPECIFIC GRAVITY 1.025 (1.001-1.030); UROBILINOGEN 0.2 E.U./dl (0.0-1.0)
[2020-11-20 10:56] LABS: EPITHELIAL CELLS 0-2; YEAST TRACE
[2020-11-20 12:00] VITALS: BP 112/66
[2020-11-20 16:00] VITALS: BP 122/79
[2020-11-20 20:00] VITALS: BP 113/68
[2020-11-21] VITALS: BP 111/68
[2020-11-21 06:40] LABS: BUN 23 mg/dl (7-24); CHLORIDE 109 mmol/L (98-107); CREATININE 0.93 mg/dL (0.70-1.30); POTASSIUM 4.6 mmol/L (3.5-5.1); SODIUM 139 mmol/L (136-145)
[2020-11-21 06:46] LABS: HEMATOCRIT 27.9 % (42.0-52.0); MEAN CELL VOLUME 99.6 fl (80.0-94.0); MEAN CORPUSCULAR HGB 29.3 pg (27.0-31.0); MEAN CORPUSCULAR HGB CONC 29.4 g/dl (33.0-37.0); MEAN PLATELET VOLUME 9.1 fl (9.6-12.3); PLATELET COUNT AUTOMATED 428 10*3/uL (130-400); RED CELL DISTRI WIDTH 17.1 % (0-14.5); WHITE BLOOD COUNT 15.7 10*3/uL (4.8-10.8)
[2020-11-21 07:56] LABS: BURR CELLS FEW; PLATELET SUFFICIENCY HIGH (NORMAL); SCHISTOCYTES FEW; TOTAL CELLS COUNTED 100 #CELLS
[2020-11-21 08:00] VITALS: BP 112/60
[2020-11-21 12:00] VITALS: BP 160/88
[2020-11-21 16:00] VITALS: BP 119/59
[2020-11-21 20:00] VITALS: BP 110/65
[2020-11-22] VITALS: BP 107/62
[2020-11-22 06:34] LABS: HEMATOCRIT 27.3 % (42.0-52.0); MEAN CELL VOLUME 98.2 fl (80.0-94.0); MEAN CORPUSCULAR HGB 29.1 pg (27.0-31.0); MEAN CORPUSCULAR HGB CONC 29.7 g/dl (33.0-37.0); MEAN PLATELET VOLUME 9.1 fl (9.6-12.3); PLATELET COUNT AUTOMATED 399 10*3/uL (130-400); RED BLOOD COUNT 2.78 10*6/uL (4.50-5.90); RED CELL DISTRI WIDTH 16.9 % (0-14.5)
[2020-11-22 06:54] LABS: BURR CELLS FEW; PLATELET SUFFICIENCY NORMAL (NORMAL); SCHISTOCYTES FEW; TOTAL CELLS COUNTED 100 #CELLS
[2020-11-22 08:00] VITALS: BP 115/62
[2020-11-22 09:00] VITALS: BP 102/54
[2020-11-22 12:00] VITALS: BP 116/63
[2020-11-22 16:00] VITALS: BP 117/60
[2020-11-22 20:00] VITALS: BP 120/68
[2020-11-23] VITALS: BP 117/63
[2020-11-23 08:00] VITALS: BP 136/82
[2020-11-23 12:00] VITALS: BP 108/59
[2020-11-23 16:00] VITALS: BP 114/57
[2020-11-23 20:00] VITALS: BP 119/60
[2020-11-24] VITALS: BP 107/64
[2020-11-24 08:00] VITALS: BP 151/74
[2020-11-24] MEDS ORDERED: MUCUS RELIEF600 MG PO (10:33)
[2020-11-24] MEDS ORDERED: PREDNISONE10 MG PO (10:33)
[2020-11-24 12:00] VITALS: BP 147/75
[2021-01-31] MEDS ORDERED: RA FISH OIL 1,1 EACH PO (10:08)
[2021-01-31] MEDS ORDERED: [UNRECOGNIZED DRUG - OTHER] PO (10:19)
[2021-01-31] MEDS ORDERED: ALLERGY RELIE15.8 ML NAS (10:26)
[2021-01-31] MEDS ORDERED: MAGNESIUM500 MG PO (10:30)
[2021-02-03] MEDS ORDERED: NATURE'S BLEND F1 MG PO (12:52)
[2021-02-03] MEDS ORDERED: DOXYCYCLINE100 M3 PO (12:52)
[2021-02-03] MEDS ORDERED: PREDNISONE10 MG PO (12:52)
[2021-02-03] MEDS ORDERED: OXYGEN NAS (12:53)
== END 2020-11-24 15:18 | DRG 871 ==
LOC: ED 10:02 → 5E 12:21 → EDHOLD 12:21 → 5E 12:21
PROVIDERS: Emergency Medicine; Hospitalist; Internal Medicine; Student in an Organized Health Care Education/Training Program; ADMIT Family Medicine; ATTEND Family Medicine
DX: A41.9 Sepsis, unspecified organism (principal); J18.9 Pneumonia, unspecified organism; J96.21 Acute and chronic respiratory failure with hypoxia; J44.1 Chronic obstructive pulmonary disease with (acute) exacerbation; E87.3 Alkalosis; J44.0 Chronic obstructive pulmonary disease with (acute) lower respiratory infection; D72.810 Lymphocytopenia; K21.9 Gastro-esophageal reflux disease without esophagitis; Z20.822 Contact with and (suspected) exposure to COVID-19; F17.210 Nicotine dependence, cigarettes, uncomplicated; D47.3 Essential (hemorrhagic) thrombocythemia; I10 Essential (primary) hypertension; J30.2 Other seasonal allergic rhinitis; R91.1 Solitary pulmonary nodule; F12.90 Cannabis use, unspecified, uncomplicated; D53.9 Nutritional anemia, unspecified; R73.9 Hyperglycemia, unspecified; E87.8 Other disorders of electrolyte and fluid balance, not elsewhere classified; Z71.6 Tobacco abuse counseling; Z99.81 Dependence on supplemental oxygen; Z88.0 Allergy status to penicillin; Z82.5 Family history of asthma and other chronic lower respiratory diseases; Z83.3 Family history of diabetes mellitus

== ENCOUNTER 2021-06-07 16:31 | Inpatient (IN) | payer MEDICARE ==
[~2021-06-07] VITALS: Ht 162.6 cm; Wt 43.1 kg
[~2021-06-07 16:31] MED LIST changes: +ALLERGY RELIE15.8 ML NAS; +AMLODIPINE BESYL5 MG PO; +MAGNESIUM500 MG PO; +MUCUS RELIEF600 MG PO; +NATURE'S BLEND F1 MG PO; +OXYGEN NAS; +VITAMIN D3125 MCG PO; +VITAMIN D350 MC2 PO; +XARE20MG PO; +[UNRECOGNIZED DRUG - OTHER] PO
[2021-06-07 16:39] VITALS: BP 114/87
[2021-06-07 17:04] LABS: BASO # 0.1 10*3/uL (0.0-0.1); BASO % 0.5 % (0.0-1.0); EOS # 0.4 10*3/uL (0.0-0.4); EOS % 4.5 % (1.0-4.0); HEMATOCRIT 29.6 % (42.0-52.0); LYMPH # 1.8 10*3/uL (1.3-4.4); LYMPH % 18.9 % (27.0-41.0); MEAN CELL VOLUME 89.7 fl (80.0-94.0); MEAN CORPUSCULAR HGB 27.9 pg (27.0-31.0); MEAN CORPUSCULAR HGB CONC 31.1 g/dl (33.0-37.0); MEAN PLATELET VOLUME 8.6 fl (9.6-12.3); MONO # 0.6 10*3/uL (0.1-1.0); MONO % 6.1 % (3.0-9.0); NEUT # 6.5 10*3/uL (2.3-7.9); NEUT % 69.8 % (47.0-73.0); PLATELET COUNT AUTOMATED 407 10*3/uL (130-400); WHITE BLOOD COUNT 9.3 10*3/uL (4.8-10.8)
[2021-06-07 17:20] LABS: ALBUMIN 3.3 gm/dl (3.1-4.5); ALKALINE PHOSPHATASE 43 U/L (45-117); BUN 9 mg/dl (7-24); CHLORIDE 93 mmol/L (98-107); POTASSIUM 4.7 mmol/L (3.5-5.1); SGOT/AST 14 IU/L (3-35); SGPT/ALT 9 U/L (12-78); SODIUM 125 mmol/L (136-145)
[2021-06-07 17:24] LABS: TROPONIN I < 0.015 ng/ml (<0.045)
[2021-06-07 18:39] VITALS: BP 113/67
[2021-06-07 21:28] VITALS: BP 89/58
[2021-06-08 02:32] VITALS: BP 97/60
[2021-06-08 04:21] VITALS: BP 97/58
[2021-06-08 04:37] LABS: HEMATOCRIT 27.5 % (42.0-52.0); MEAN CELL VOLUME 88.4 fl (80.0-94.0); MEAN CORPUSCULAR HGB 27.3 pg (27.0-31.0); MEAN CORPUSCULAR HGB CONC 30.9 g/dl (33.0-37.0); PLATELET COUNT AUTOMATED 380 10*3/uL (130-400); RED BLOOD COUNT 3.11 10*6/uL (4.50-5.90); RED CELL DISTRI WIDTH 14.8 % (0-14.5); WHITE BLOOD COUNT 3.4 10*3/uL (4.8-10.8)
[2021-06-08 04:56] LABS: ALBUMIN 2.6 gm/dl (3.1-4.5); ALKALINE PHOSPHATASE 34 U/L (45-117); BUN 12 mg/dl (7-24); CHLORIDE 100 mmol/L (98-107); CREATININE 0.87 mg/dL (0.70-1.30); FREE T4 0.89 ng/dl (0.76-1.46); POTASSIUM 4.8 mmol/L (3.5-5.1); SGOT/AST 13 IU/L (3-35); SGPT/ALT 7 U/L (12-78); SODIUM 130 mmol/L (136-145); TOTAL PROTEIN 6.8 gm/dL (6.4-8.2)
[2021-06-08 05:00] LABS: TOTAL CELLS COUNTED 100 #CELLS
[2021-06-08 05:01] LABS: BURR CELLS FEW; OVALOCYTES FEW; PLATELET SUFFICIENCY NORMAL (NORMAL)
[2021-06-08 06:34] VITALS: BP 99/60
[2021-06-08 13:30] VITALS: BP 108/59
[2021-06-08 16:00] VITALS: BP 110/63
[2021-06-08 20:00] VITALS: BP 105/52
[2021-06-09] VITALS: BP 114/52
[2021-06-09 06:17] LABS: HEMATOCRIT 24.1 % (42.0-52.0); MEAN CELL VOLUME 89.3 fl (80.0-94.0); MEAN CORPUSCULAR HGB 28.1 pg (27.0-31.0); MEAN CORPUSCULAR HGB CONC 31.5 g/dl (33.0-37.0); MEAN PLATELET VOLUME 9.4 fl (9.6-12.3); PLATELET COUNT AUTOMATED 389 10*3/uL (130-400); RED CELL DISTRI WIDTH 15.1 % (0-14.5); WHITE BLOOD COUNT 7.3 10*3/uL (4.8-10.8)
[2021-06-09 06:23] LABS: CHLORIDE 104 mmol/L (98-107); POTASSIUM 5.1 mmol/L (3.5-5.1); SODIUM 135 mmol/L (136-145)
[2021-06-09 06:33] LABS: ALBUMIN 2.5 gm/dl (3.1-4.5); ALKALINE PHOSPHATASE 45 U/L (45-117); CREATININE 0.96 mg/dL (0.70-1.30); SGOT/AST 10 IU/L (3-35); SGPT/ALT 7 U/L (12-78); TOTAL PROTEIN 6.4 gm/dL (6.4-8.2)
[2021-06-09 06:53] LABS: BUN 22 mg/dl (7-24)
[2021-06-09 07:19] LABS: BURR CELLS MODERATE; PLATELET SUFFICIENCY NORMAL (NORMAL); SCHISTOCYTES FEW; TOTAL CELLS COUNTED 100 #CELLS
[2021-06-09 08:00] VITALS: BP 106/65
[2021-06-09 12:00] VITALS: BP 114/66
[2021-06-09 16:00] VITALS: BP 117/61
[2021-06-09 20:00] VITALS: BP 115/70
[2021-06-10 06:16] LABS: HEMATOCRIT 24.7 % (42.0-52.0); MEAN CELL VOLUME 91.5 fl (80.0-94.0); MEAN CORPUSCULAR HGB 28.1 pg (27.0-31.0); MEAN CORPUSCULAR HGB CONC 30.8 g/dl (33.0-37.0); MEAN PLATELET VOLUME 9.2 fl (9.6-12.3); PLATELET COUNT AUTOMATED 439 10*3/uL (130-400); RED CELL DISTRI WIDTH 15.6 % (0-14.5)
[2021-06-10 06:42] LABS: BUN 25 mg/dl (7-24); CHLORIDE 107 mmol/L (98-107); POTASSIUM 4.6 mmol/L (3.5-5.1); SODIUM 139 mmol/L (136-145)
[2021-06-10 06:43] LABS: CREATININE 0.89 mg/dL (0.70-1.30)
[2021-06-10 07:10] LABS: TOTAL CELLS COUNTED 100 #CELLS
[2021-06-10 07:11] LABS: PLATELET SUFFICIENCY HIGH (NORMAL)
[2021-06-10 07:13] LABS: BURR CELLS FEW
[2021-06-10 08:00] VITALS: BP 132/74
[2021-06-10 12:00] VITALS: BP 109/63
[2021-06-10 16:00] VITALS: BP 123/63
[2021-06-10 20:00] VITALS: BP 110/68
[2021-06-11] VITALS: BP 112/69
[2021-06-11 06:29] LABS: BASO % 0.1 % (0.0-1.0); HEMATOCRIT 25.3 % (42.0-52.0); LYMPH # 0.6 10*3/uL (1.3-4.4); LYMPH % 7.1 % (27.0-41.0); MEAN CELL VOLUME 91.7 fl (80.0-94.0); MEAN CORPUSCULAR HGB 27.9 pg (27.0-31.0); MEAN CORPUSCULAR HGB CONC 30.4 g/dl (33.0-37.0); MEAN PLATELET VOLUME 9.1 fl (9.6-12.3); MONO # 0.2 10*3/uL (0.1-1.0); NEUT # 7.7 10*3/uL (2.3-7.9); NEUT % 89.3 % (47.0-73.0); PLATELET COUNT AUTOMATED 450 10*3/uL (130-400); RED BLOOD COUNT 2.76 10*6/uL (4.50-5.90); RED CELL DISTRI WIDTH 15.7 % (0-14.5); WHITE BLOOD COUNT 8.6 10*3/uL (4.8-10.8)
[2021-06-11 06:37] LABS: BUN 26 mg/dl (7-24); CHLORIDE 109 mmol/L (98-107); CREATININE 0.87 mg/dL (0.70-1.30); POTASSIUM 4.2 mmol/L (3.5-5.1); SODIUM 140 mmol/L (136-145)
[2021-06-11 08:00] VITALS: BP 115/66
[2021-06-11 12:00] VITALS: BP 119/68
[2021-06-11 16:00] VITALS: BP 135/71
[2021-06-11 20:00] VITALS: BP 115/64
[2021-06-12] VITALS: BP 114/72
[2021-06-12 06:11] LABS: BUN 24 mg/dl (7-24); CHLORIDE 107 mmol/L (98-107); CREATININE 0.92 mg/dL (0.70-1.30); POTASSIUM 4.2 mmol/L (3.5-5.1); SODIUM 139 mmol/L (136-145)
[2021-06-12 06:20] LABS: BASO % 0.1 % (0.0-1.0); HEMATOCRIT 25.7 % (42.0-52.0); LYMPH # 0.8 10*3/uL (1.3-4.4); LYMPH % 9.1 % (27.0-41.0); MEAN CELL VOLUME 93.1 fl (80.0-94.0); MEAN CORPUSCULAR HGB 28.3 pg (27.0-31.0); MEAN CORPUSCULAR HGB CONC 30.4 g/dl (33.0-37.0); MEAN PLATELET VOLUME 8.9 fl (9.6-12.3); MONO # 0.3 10*3/uL (0.1-1.0); MONO % 3.7 % (3.0-9.0); NEUT # 7.6 10*3/uL (2.3-7.9); NEUT % 85.2 % (47.0-73.0); PLATELET COUNT AUTOMATED 451 10*3/uL (130-400); RED BLOOD COUNT 2.76 10*6/uL (4.50-5.90); RED CELL DISTRI WIDTH 15.8 % (0-14.5); WHITE BLOOD COUNT 8.9 10*3/uL (4.8-10.8)
[2021-06-12 07:47] VITALS: BP 110/59
[2021-06-12 12:00] VITALS: BP 125/78
[2021-06-12] MEDS ORDERED: CEFEPIME HYDROCH1 GM IV (12:22)
[2021-06-12 16:00] VITALS: BP 124/72
[2021-06-12 20:00] VITALS: BP 124/70
[2021-06-13] VITALS: BP 112/55
[2021-06-13 06:06] LABS: HEMATOCRIT 24.3 % (42.0-52.0); MEAN CELL VOLUME 94.2 fl (80.0-94.0); MEAN CORPUSCULAR HGB 28.3 pg (27.0-31.0); MEAN PLATELET VOLUME 8.6 fl (9.6-12.3); PLATELET COUNT AUTOMATED 440 10*3/uL (130-400); RED BLOOD COUNT 2.58 10*6/uL (4.50-5.90); RED CELL DISTRI WIDTH 16.1 % (0-14.5)
[2021-06-13 06:25] LABS: BUN 29 mg/dl (7-24); CHLORIDE 109 mmol/L (98-107); CREATININE 0.86 mg/dL (0.70-1.30); POTASSIUM 3.4 mmol/L (3.5-5.1); SODIUM 142 mmol/L (136-145)
[2021-06-13 07:19] LABS: PLATELET SUFFICIENCY HIGH (NORMAL); TOTAL CELLS COUNTED 100 #CELLS
[2021-06-13 12:00] VITALS: BP 122/64
[2021-06-13 16:00] VITALS: BP 124/71
[2021-06-13 20:00] VITALS: BP 130/68
[2021-06-14] VITALS: BP 122/72
[2021-06-14 06:11] LABS: BUN 28 mg/dl (7-24); CHLORIDE 106 mmol/L (98-107); CREATININE 0.89 mg/dL (0.70-1.30); POTASSIUM 4.1 mmol/L (3.5-5.1); SODIUM 140 mmol/L (136-145)
[2021-06-14 08:00] VITALS: BP 112/64
[2021-06-14] MEDS ORDERED: PREDNISONE10 MG PO (11:00)
[2021-06-14 12:00] VITALS: BP 122/62
== END 2021-06-14 14:39 | DRG 871 ==
LOC: ED 16:31 → EDHOLD 21:11 → 5E 21:11 → EDHOLD 21:51 → 5E 06-08 12:43
PROVIDERS: Emergency Medicine; Internal Medicine; ADMIT Family Medicine; ATTEND Family Medicine
PROC: 02HV33Z Insertion of Infusion Device into Superior Vena Cava, Percutaneous Approach (ICD-10-PCS; principal; 2021-06-13)
DX: A41.9 Sepsis, unspecified organism (principal); J96.21 Acute and chronic respiratory failure with hypoxia; J15.6 Pneumonia due to other Gram-negative bacteria; E87.1 Hypo-osmolality and hyponatremia; R64 Cachexia; Z68.1 Body mass index [BMI] 19.9 or less, adult; E87.8 Other disorders of electrolyte and fluid balance, not elsewhere classified; J20.9 Acute bronchitis, unspecified; R91.1 Solitary pulmonary nodule; J43.9 Emphysema, unspecified; D64.9 Anemia, unspecified; M19.90 Unspecified osteoarthritis, unspecified site; I10 Essential (primary) hypertension; F41.1 Generalized anxiety disorder; K21.9 Gastro-esophageal reflux disease without esophagitis; E55.9 Vitamin D deficiency, unspecified; D72.819 Decreased white blood cell count, unspecified; E78.5 Hyperlipidemia, unspecified; D47.3 Essential (hemorrhagic) thrombocythemia; Z20.822 Contact with and (suspected) exposure to COVID-19; F17.210 Nicotine dependence, cigarettes, uncomplicated; Z71.6 Tobacco abuse counseling; Z99.81 Dependence on supplemental oxygen; Z88.0 Allergy status to penicillin; Z82.5 Family history of asthma and other chronic lower respiratory diseases; Z83.3 Family history of diabetes mellitus; Z79.899 Other long term (current) drug therapy; Z87.01 Personal history of pneumonia (recurrent)

== ENCOUNTER 2022-01-25 17:35 | Inpatient (IN) | payer MEDICARE ==
[~2022-01-25] VITALS: Ht 162.5 cm; Wt 46.0 kg
[~2022-01-25 17:35] MED LIST changes: +CEFEPIME HYDROCH1 GM IV
[2022-01-25 18:02] VITALS: BP 128/71
[2022-01-25 18:37] LABS: BASO % 0.3 % (0.0-1.0); EOS # 0.2 10*3/uL (0.0-0.4); EOS % 1.4 % (1.0-4.0); HEMATOCRIT 38.4 % (42.0-52.0); LYMPH % 15.2 % (27.0-41.0); MEAN CELL VOLUME 90.1 fl (80.0-94.0); MEAN CORPUSCULAR HGB 29.8 pg (27.0-31.0); MEAN CORPUSCULAR HGB CONC 33.1 g/dl (33.0-37.0); MEAN PLATELET VOLUME 8.7 fl (9.6-12.3); MONO # 0.9 10*3/uL (0.1-1.0); MONO % 6.5 % (3.0-9.0); NEUT % 76.2 % (47.0-73.0); PLATELET COUNT AUTOMATED 294 10*3/uL (130-400); RED BLOOD COUNT 4.26 10*6/uL (4.50-5.90); RED CELL DISTRI WIDTH 14.2 % (0-14.5); WHITE BLOOD COUNT 13.1 10*3/uL (4.8-10.8)
[2022-01-25 18:55] LABS: ALKALINE PHOSPHATASE 40 U/L (45-117); BUN 13 mg/dl (7-24); CHLORIDE 96 mmol/L (98-107); CREATININE 1.08 mg/dL (0.70-1.30); POTASSIUM 3.6 mmol/L (3.5-5.1); SGOT/AST 13 IU/L (3-35); SGPT/ALT 11 U/L (12-78); SODIUM 130 mmol/L (136-145); TOTAL PROTEIN 7.2 gm/dL (6.4-8.2)
[2022-01-25 18:59] LABS: ABG BASE EXCESS 0.8 mmol/L (-2.0-2.0); ARTERIAL BLOOD GAS PH 7.465 (7.35-7.45); ARTERIAL BLOOD GAS PO2 98.6 (80-90)
[2022-01-25 19:00] LABS: ACT PARTIAL THROMBO TIME 26.2 SECONDS (20.0-32.1); INTERNATIONAL NORM RATIO 0.9 (2.0-3.5)
[2022-01-25 19:44] VITALS: BP 102/65
[2022-01-25 21:30] VITALS: BP 107/68
[2022-01-25] MEDS ORDERED: ANORO ELLIPTA1 EACH INH (21:35)
[2022-01-25] MEDS ORDERED: VITAMIN D3125 MCG PO (21:37)
[2022-01-25] MEDS ORDERED: FISH OIL 1,0001 EAC3 PO (21:37)
[2022-01-25 22:20] VITALS: BP 110/61
[2022-01-26 06:11] LABS: MEAN CELL VOLUME 89.7 fl (80.0-94.0); MEAN CORPUSCULAR HGB 30.1 pg (27.0-31.0); MEAN CORPUSCULAR HGB CONC 33.5 g/dl (33.0-37.0); PLATELET COUNT AUTOMATED 278 10*3/uL (130-400); RED BLOOD COUNT 3.79 10*6/uL (4.50-5.90); RED CELL DISTRI WIDTH 14.1 % (0-14.5); WHITE BLOOD COUNT 7.6 10*3/uL (4.8-10.8)
[2022-01-26 06:13] LABS: MANUAL DIFF REFLEX YES
[2022-01-26 06:41] LABS: TOTAL CELLS COUNTED 100 #CELLS
[2022-01-26 06:42] LABS: BURR CELLS FEW; PLATELET SUFFICIENCY NORMAL (NORMAL); POLYCHROMASIA SLIGHT
[2022-01-26 06:55] LABS: BUN 17 mg/dl (7-24); CHLORIDE 102 mmol/L (98-107); CHOLESTEROL 147 mg/dL (<200); CREATININE 1.09 mg/dL (0.70-1.30); SGOT/AST 11 IU/L (3-35); SGPT/ALT 8 U/L (12-78); SODIUM 130 mmol/L (136-145); TOTAL PROTEIN 6.3 gm/dL (6.4-8.2); TRIGLYCERIDES 65 mg/dl (<150)
[2022-01-26 07:00] LABS: ALKALINE PHOSPHATASE 32 U/L (45-117); FREE T4 1.19 ng/dl (0.76-1.46); LDL CHOLESTEROL 90 mg/dL (9-159)
[2022-01-26 07:03] LABS: VITAMIN D, 25-HYDROXY 92.4 ng/mL (30-100)
[2022-01-26 07:26] LABS: POTASSIUM 4.9 mmol/L (3.5-5.1)
[2022-01-26 08:00] VITALS: BP 100/62
[2022-01-26 12:00] VITALS: BP 100/59
[2022-01-26 17:39] VITALS: BP 109/60
[2022-01-26 20:00] VITALS: BP 104/62
[2022-01-27] VITALS: BP 103/61
[2022-01-27 06:09] LABS: BUN 23 mg/dl (7-24); CHLORIDE 103 mmol/L (98-107); CREATININE 1.07 mg/dL (0.70-1.30); POTASSIUM 4.7 mmol/L (3.5-5.1); SODIUM 132 mmol/L (136-145)
[2022-01-27 06:12] LABS: HEMATOCRIT 33.1 % (42.0-52.0); MEAN CELL VOLUME 91.4 fl (80.0-94.0); MEAN CORPUSCULAR HGB 29.8 pg (27.0-31.0); MEAN CORPUSCULAR HGB CONC 32.6 g/dl (33.0-37.0); MEAN PLATELET VOLUME 9.3 fl (9.6-12.3); PLATELET COUNT AUTOMATED 266 10*3/uL (130-400); RED BLOOD COUNT 3.62 10*6/uL (4.50-5.90); RED CELL DISTRI WIDTH 14.3 % (0-14.5)
[2022-01-27 06:48] LABS: MANUAL DIFF REFLEX YES
[2022-01-27 07:10] LABS: BURR CELLS FEW; SCHISTOCYTES FEW; TOTAL CELLS COUNTED 100 #CELLS
[2022-01-27 07:11] LABS: PLATELET SUFFICIENCY NORMAL (NORMAL); POLYCHROMASIA SLIGHT
[2022-01-27 08:00] VITALS: BP 100/58
[2022-01-27 12:00] VITALS: BP 110/58
[2022-01-27 16:00] VITALS: BP 110/46
[2022-01-27 20:00] VITALS: BP 114/62
[2022-01-28] VITALS: BP 113/65
[2022-01-28 08:00] VITALS: BP 117/62
[2022-01-28 12:00] VITALS: BP 155/90
[2022-01-28 16:00] VITALS: BP 112/67
[2022-01-28 20:00] VITALS: BP 114/66
[2022-01-29] VITALS: BP 121/59
[2022-01-29 06:00] LABS: HEMATOCRIT 32.7 % (42.0-52.0); MEAN CELL VOLUME 94.2 fl (80.0-94.0); MEAN CORPUSCULAR HGB 30.5 pg (27.0-31.0); MEAN CORPUSCULAR HGB CONC 32.4 g/dl (33.0-37.0); MEAN PLATELET VOLUME 9.5 fl (9.6-12.3); PLATELET COUNT AUTOMATED 257 10*3/uL (130-400); RED BLOOD COUNT 3.47 10*6/uL (4.50-5.90); RED CELL DISTRI WIDTH 14.8 % (0-14.5); WHITE BLOOD COUNT 13.4 10*3/uL (4.8-10.8)
[2022-01-29 06:08] LABS: MANUAL DIFF REFLEX YES
[2022-01-29 06:09] LABS: ALKALINE PHOSPHATASE 35 U/L (45-117); BUN 25 mg/dl (7-24); CHLORIDE 107 mmol/L (98-107); CREATININE 1.01 mg/dL (0.70-1.30); POTASSIUM 4.7 mmol/L (3.5-5.1); SGOT/AST 10 IU/L (3-35); SGPT/ALT 8 U/L (12-78); SODIUM 136 mmol/L (136-145); TOTAL PROTEIN 5.8 gm/dL (6.4-8.2)
[2022-01-29 06:38] LABS: BURR CELLS FEW; OVALOCYTES FEW; PLATELET SUFFICIENCY NORMAL (NORMAL); TOTAL CELLS COUNTED 100 #CELLS
[2022-01-29 08:00] VITALS: BP 113/63
[2022-01-29] MEDS ORDERED: PREDNISONE10 MG PO (11:59)
[2022-01-29] MEDS ORDERED: DOXYCYCLINE HY100 M3 PO (11:59)
[2022-01-29] MEDS ORDERED: NATURE'S BLEND F1 MG PO (11:59)
[2022-01-29 12:00] VITALS: BP 121/76
== END 2022-01-29 15:36 | disposition home or self-care (01) | DRG 871 ==
LOC: ED 17:35 → 4E 21:09 → EDHOLD 21:09 → 4E 21:51
PROVIDERS: Emergency Medicine; Internal Medicine; ADMIT Internal Medicine; ATTEND Internal Medicine
DX: A41.9 Sepsis, unspecified organism (principal); J15.6 Pneumonia due to other Gram-negative bacteria; J44.1 Chronic obstructive pulmonary disease with (acute) exacerbation; E87.1 Hypo-osmolality and hyponatremia; E87.2 Acidosis; J44.0 Chronic obstructive pulmonary disease with (acute) lower respiratory infection; Z20.822 Contact with and (suspected) exposure to COVID-19; R65.20 Severe sepsis without septic shock; D64.9 Anemia, unspecified; K21.9 Gastro-esophageal reflux disease without esophagitis; E78.5 Hyperlipidemia, unspecified; I10 Essential (primary) hypertension; F17.210 Nicotine dependence, cigarettes, uncomplicated; Z83.3 Family history of diabetes mellitus; Z82.5 Family history of asthma and other chronic lower respiratory diseases; Z88.0 Allergy status to penicillin; Z79.51 Long term (current) use of inhaled steroids; Z79.899 Other long term (current) drug therapy

== ENCOUNTER 2022-03-01 21:55 | Inpatient (IN) | payer MEDICARE ==
[~2022-03-01] VITALS: Ht 162.5 cm; Wt 45.4 kg
[2022-03-01 21:55] VITALS: BP 120/72
[~2022-03-01 21:55] MED LIST changes: +DOXYCYCLINE HY100 M3 PO; +FISH OIL 1,0001 EAC3 PO
[2022-03-01 22:34] VITALS: BP 117/69
[2022-03-01 22:46] LABS: BASO % 0.1 % (0.0-1.0); EOS # 0.1 10*3/uL (0.0-0.4); EOS % 0.4 % (1.0-4.0); HEMATOCRIT 39.7 % (42.0-52.0); LYMPH # 1.7 10*3/uL (1.3-4.4); LYMPH % 9.9 % (27.0-41.0); MEAN CELL VOLUME 91.7 fl (80.0-94.0); MEAN CORPUSCULAR HGB 30.3 pg (27.0-31.0); MEAN PLATELET VOLUME 8.8 fl (9.6-12.3); MONO % 5.8 % (3.0-9.0); NEUT # 14.2 10*3/uL (2.3-7.9); NEUT % 83.2 % (47.0-73.0); PLATELET COUNT AUTOMATED 301 10*3/uL (130-400); RED BLOOD COUNT 4.33 10*6/uL (4.50-5.90); RED CELL DISTRI WIDTH 14.4 % (0-14.5)
[2022-03-01 23:16] LABS: ALKALINE PHOSPHATASE 41 U/L (45-117); BUN 16 mg/dl (7-24); CHLORIDE 99 mmol/L (98-107); CREATININE 1.09 mg/dL (0.70-1.30); POTASSIUM 4.2 mmol/L (3.5-5.1); SGOT/AST 12 IU/L (3-35); SGPT/ALT 15 U/L (12-78); SODIUM 130 mmol/L (136-145); TOTAL PROTEIN 6.6 gm/dL (6.4-8.2)
[2022-03-01 23:51] VITALS: BP 130/89
[2022-03-02 01:06] VITALS: BP 100/78
[2022-03-02 06:10] LABS: BUN 17 mg/dl (7-24); CHLORIDE 101 mmol/L (98-107); CREATININE 0.98 mg/dL (0.70-1.30); POTASSIUM 4.5 mmol/L (3.5-5.1); SGOT/AST 14 IU/L (3-35); SGPT/ALT 13 U/L (12-78); SODIUM 131 mmol/L (136-145)
[2022-03-02 06:11] LABS: ALKALINE PHOSPHATASE 35 U/L (45-117)
[2022-03-02 06:18] LABS: HEMATOCRIT 37.9 % (42.0-52.0); MEAN CELL VOLUME 91.3 fl (80.0-94.0); MEAN CORPUSCULAR HGB 30.1 pg (27.0-31.0); PLATELET COUNT AUTOMATED 281 10*3/uL (130-400); RED BLOOD COUNT 4.15 10*6/uL (4.50-5.90); RED CELL DISTRI WIDTH 14.4 % (0-14.5); WHITE BLOOD COUNT 10.1 10*3/uL (4.8-10.8)
[2022-03-02 06:49] LABS: MANUAL DIFF REFLEX YES
[2022-03-02 06:52] LABS: BURR CELLS FEW; PLATELET SUFFICIENCY NORMAL (NORMAL); TOTAL CELLS COUNTED 100 #CELLS
[2022-03-02 07:46] LABS: INTERNATIONAL NORM RATIO 0.9 (2.0-3.5)
[2022-03-02 08:00] VITALS: BP 116/70
[2022-03-02 12:00] VITALS: BP 104/60
[2022-03-02 16:00] VITALS: BP 107/64
[2022-03-02 20:00] VITALS: BP 110/68
[2022-03-03] VITALS: BP 106/68
[2022-03-03 06:13] LABS: BASO % 0.1 % (0.0-1.0); HEMATOCRIT 36.5 % (42.0-52.0); LYMPH # 0.8 10*3/uL (1.3-4.4); LYMPH % 6.7 % (27.0-41.0); MEAN CELL VOLUME 92.4 fl (80.0-94.0); MEAN CORPUSCULAR HGB 30.1 pg (27.0-31.0); MEAN CORPUSCULAR HGB CONC 32.6 g/dl (33.0-37.0); MEAN PLATELET VOLUME 8.8 fl (9.6-12.3); MONO # 0.4 10*3/uL (0.1-1.0); MONO % 3.5 % (3.0-9.0); NEUT % 88.5 % (47.0-73.0); PLATELET COUNT AUTOMATED 258 10*3/uL (130-400); RED BLOOD COUNT 3.95 10*6/uL (4.50-5.90); RED CELL DISTRI WIDTH 14.6 % (0-14.5); WHITE BLOOD COUNT 11.3 10*3/uL (4.8-10.8)
[2022-03-03 06:22] LABS: CHLORIDE 102 mmol/L (98-107); POTASSIUM 4.4 mmol/L (3.5-5.1); SODIUM 133 mmol/L (136-145)
[2022-03-03 06:30] LABS: ALKALINE PHOSPHATASE 33 U/L (45-117); BUN 25 mg/dl (7-24); CREATININE 1.08 mg/dL (0.70-1.30); SGOT/AST 11 IU/L (3-35); SGPT/ALT 12 U/L (12-78); TOTAL PROTEIN 5.8 gm/dL (6.4-8.2)
[2022-03-03 08:00] VITALS: BP 103/62
[2022-03-03 12:00] VITALS: BP 110/63
[2022-03-03 16:00] VITALS: BP 122/71
[2022-03-03 20:00] VITALS: BP 109/66
[2022-03-04] VITALS: BP 105/67
[2022-03-04 06:30] LABS: HEMATOCRIT 34.3 % (42.0-52.0); MEAN CELL VOLUME 94.5 fl (80.0-94.0); MEAN CORPUSCULAR HGB 30.6 pg (27.0-31.0); MEAN CORPUSCULAR HGB CONC 32.4 g/dl (33.0-37.0); MEAN PLATELET VOLUME 9.1 fl (9.6-12.3); PLATELET COUNT AUTOMATED 241 10*3/uL (130-400); RED BLOOD COUNT 3.63 10*6/uL (4.50-5.90); RED CELL DISTRI WIDTH 14.7 % (0-14.5); WHITE BLOOD COUNT 10.9 10*3/uL (4.8-10.8)
[2022-03-04 06:34] LABS: MANUAL DIFF REFLEX YES
[2022-03-04 06:41] LABS: BUN 29 mg/dl (7-24); CHLORIDE 106 mmol/L (98-107); CREATININE 1.09 mg/dL (0.70-1.30); POTASSIUM 4.7 mmol/L (3.5-5.1); SODIUM 136 mmol/L (136-145)
[2022-03-04 07:37] LABS: BURR CELLS FEW; PLATELET SUFFICIENCY NORMAL (NORMAL); TOTAL CELLS COUNTED 100 #CELLS
[2022-03-04 08:00] VITALS: BP 115/61
[2022-03-04 12:00] VITALS: BP 118/58
[2022-03-04 16:00] VITALS: BP 113/66
[2022-03-04 20:00] VITALS: BP 117/60
[2022-03-05] VITALS: BP 115/67
[2022-03-05 05:57] LABS: BUN 27 mg/dl (7-24); CHLORIDE 108 mmol/L (98-107); CREATININE 1.04 mg/dL (0.70-1.30); POTASSIUM 4.1 mmol/L (3.5-5.1); SODIUM 140 mmol/L (136-145)
[2022-03-05 06:29] LABS: HEMATOCRIT 33.7 % (42.0-52.0); MEAN CELL VOLUME 96.3 fl (80.0-94.0); MEAN CORPUSCULAR HGB 31.1 pg (27.0-31.0); MEAN CORPUSCULAR HGB CONC 32.3 g/dl (33.0-37.0); MEAN PLATELET VOLUME 9.3 fl (9.6-12.3); PLATELET COUNT AUTOMATED 241 10*3/uL (130-400); WHITE BLOOD COUNT 10.6 10*3/uL (4.8-10.8)
[2022-03-05 06:50] LABS: MANUAL DIFF REFLEX YES
[2022-03-05 07:17] LABS: BURR CELLS FEW; OVALOCYTES FEW; PLATELET SUFFICIENCY NORMAL (NORMAL); POLYCHROMASIA SLIGHT; TOTAL CELLS COUNTED 100 #CELLS
[2022-03-05 08:00] VITALS: BP 110/63
[2022-03-05 12:00] VITALS: BP 116/62
[2022-03-05 16:00] VITALS: BP 110/67
[2022-03-05 20:00] VITALS: BP 116/65
[2022-03-05 22:00] VITALS: BP 116/65
[2022-03-06] VITALS: BP 114/71
[2022-03-06 06:56] LABS: BASO % 0.3 % (0.0-1.0); HEMATOCRIT 35.5 % (42.0-52.0); LYMPH # 0.6 10*3/uL (1.3-4.4); LYMPH % 5.7 % (27.0-41.0); MEAN CELL VOLUME 95.7 fl (80.0-94.0); MEAN CORPUSCULAR HGB 30.2 pg (27.0-31.0); MEAN CORPUSCULAR HGB CONC 31.5 g/dl (33.0-37.0); MONO # 0.6 10*3/uL (0.1-1.0); MONO % 5.1 % (3.0-9.0); NEUT # 9.6 10*3/uL (2.3-7.9); PLATELET COUNT AUTOMATED 229 10*3/uL (130-400); RED BLOOD COUNT 3.71 10*6/uL (4.50-5.90); RED CELL DISTRI WIDTH 14.9 % (0-14.5)
[2022-03-06 07:02] LABS: BUN 25 mg/dl (7-24); CHLORIDE 107 mmol/L (98-107); POTASSIUM 4.5 mmol/L (3.5-5.1); SODIUM 137 mmol/L (136-145)
[2022-03-06 07:04] LABS: CREATININE 1.01 mg/dL (0.70-1.30)
[2022-03-06 08:00] VITALS: BP 114/67
[2022-03-06 12:00] VITALS: BP 120/60
[2022-03-06 16:00] VITALS: BP 114/57
[2022-03-06 20:00] VITALS: BP 116/62
[2022-03-07] VITALS (9 sets, daily range): BP systolic 102–119; BP diastolic 52–71
[2022-03-08] VITALS: BP 130/70
[2022-03-08 08:00] VITALS: BP 117/80
[2022-03-08 12:00] VITALS: BP 119/70
[2022-03-08 13:07] LABS: ACID FAST SPEC PROCESSING Concentration (.)
[2022-03-08 16:00] VITALS: BP 132/72
[2022-03-08 20:00] VITALS: BP 111/64
[2022-03-09] VITALS: BP 103/66
[2022-03-09 06:23] LABS: HEMATOCRIT 34.2 % (42.0-52.0); MANUAL DIFF REFLEX YES; MEAN CELL VOLUME 96.1 fl (80.0-94.0); MEAN CORPUSCULAR HGB 30.3 pg (27.0-31.0); MEAN CORPUSCULAR HGB CONC 31.6 g/dl (33.0-37.0); MEAN PLATELET VOLUME 8.8 fl (9.6-12.3); PLATELET COUNT AUTOMATED 181 10*3/uL (130-400); RED BLOOD COUNT 3.56 10*6/uL (4.50-5.90); RED CELL DISTRI WIDTH 14.7 % (0-14.5)
[2022-03-09 06:35] LABS: CREATININE 0.92 mg/dL (0.70-1.30)
[2022-03-09 07:56] LABS: PLATELET SUFFICIENCY NORMAL (NORMAL); TOTAL CELLS COUNTED 100 #CELLS
[2022-03-09 08:00] VITALS: BP 100/64
[2022-03-09 12:00] VITALS: BP 106/66
[2022-03-09 16:00] VITALS: BP 114/67
[2022-03-09 20:00] VITALS: BP 104/65
[2022-03-10] VITALS: BP 119/69
[2022-03-10 08:00] VITALS: BP 101/62
[2022-03-10 12:00] VITALS: BP 110/64
[2022-03-10 16:00] VITALS: BP 115/70; BP 90/50
[2022-03-10 20:00] VITALS: BP 118/77
[2022-03-11] VITALS: BP 117/69
[2022-03-11 05:51] LABS: BUN 29 mg/dl (7-24); CHLORIDE 105 mmol/L (98-107); CREATININE 0.96 mg/dL (0.70-1.30); SODIUM 138 mmol/L (136-145)
[2022-03-11 06:07] LABS: HEMATOCRIT 32.1 % (42.0-52.0); MEAN CELL VOLUME 95.3 fl (80.0-94.0); MEAN CORPUSCULAR HGB 30.3 pg (27.0-31.0); MEAN CORPUSCULAR HGB CONC 31.8 g/dl (33.0-37.0); MEAN PLATELET VOLUME 9.4 fl (9.6-12.3); PLATELET COUNT AUTOMATED 169 10*3/uL (130-400); RED BLOOD COUNT 3.37 10*6/uL (4.50-5.90); RED CELL DISTRI WIDTH 14.7 % (0-14.5); WHITE BLOOD COUNT 12.5 10*3/uL (4.8-10.8)
[2022-03-11 06:15] LABS: MANUAL DIFF REFLEX YES
[2022-03-11 06:38] LABS: BURR CELLS FEW; OVALOCYTES FEW; PLATELET SUFFICIENCY NORMAL (NORMAL); TOTAL CELLS COUNTED 100 #CELLS
[2022-03-11 06:39] LABS: POLYCHROMASIA SLIGHT; SCHISTOCYTES FEW
[2022-03-11 08:00] VITALS: BP 115/64
[2022-03-11 12:00] VITALS: BP 112/62
[2022-03-11 16:00] VITALS: BP 117/63
[2022-03-11] MEDS ORDERED: CEFEPIME1 GM/50 ML IV ×2 (18:29)
[2022-03-11 20:00] VITALS: BP 118/73
[2022-03-12] VITALS: BP 121/77
[2022-03-12 08:00] VITALS: BP 110/65
[2022-03-12 12:00] VITALS: BP 118/64
[2022-03-12 16:00] VITALS: BP 114/64
[2022-03-12 20:00] VITALS: BP 130/63
[2022-03-13] VITALS: BP 109/65
[2022-03-13 08:00] VITALS: BP 103/63
[2022-03-13 12:00] VITALS: BP 105/64
[2022-03-13 16:00] VITALS: BP 109/63
[2022-03-13 20:00] VITALS: BP 110/69
[2022-03-14] VITALS: BP 108/68
[2022-03-14 08:00] VITALS: BP 102/64; BP 98/60
[2022-03-14 12:00] VITALS: BP 104/62; BP 98/63
[2022-03-14 16:00] VITALS: BP 109/60
[2022-03-14 20:00] VITALS: BP 115/71
[2022-03-15] VITALS: BP 110/70
[2022-03-15 06:16] LABS: HEMATOCRIT 31.7 % (42.0-52.0); MEAN CELL VOLUME 94.6 fl (80.0-94.0); MEAN CORPUSCULAR HGB 30.1 pg (27.0-31.0); MEAN CORPUSCULAR HGB CONC 31.9 g/dl (33.0-37.0); MEAN PLATELET VOLUME 9.3 fl (9.6-12.3); PLATELET COUNT AUTOMATED 149 10*3/uL (130-400); RED BLOOD COUNT 3.35 10*6/uL (4.50-5.90); RED CELL DISTRI WIDTH 14.4 % (0-14.5); WHITE BLOOD COUNT 12.9 10*3/uL (4.8-10.8)
[2022-03-15 06:19] LABS: MANUAL DIFF REFLEX YES
[2022-03-15 06:22] LABS: BUN 27 mg/dl (7-24); CHLORIDE 104 mmol/L (98-107); CREATININE 0.85 mg/dL (0.70-1.30); POTASSIUM 4.1 mmol/L (3.5-5.1); SODIUM 136 mmol/L (136-145)
[2022-03-15 06:56] LABS: BASOPHILS 1 % (0-1); PLATELET SUFFICIENCY NORMAL (NORMAL); TOTAL CELLS COUNTED 100 #CELLS
[2022-03-15 08:00] VITALS: BP 108/66
[2022-03-15 12:00] VITALS: BP 110/64
[2022-03-15 16:00] VITALS: BP 105/61
[2022-03-15 20:00] VITALS: BP 113/66
[2022-03-16] VITALS: BP 117/60
[2022-03-16 08:00] VITALS: BP 105/61
[2022-03-16 12:00] VITALS: BP 119/59
[2022-03-16 16:00] VITALS: BP 95/53
[2022-03-16 20:00] VITALS: BP 102/52
[2022-03-17] VITALS: BP 106/67
[2022-03-17 08:00] VITALS: BP 116/62
[2022-03-17] MEDS ORDERED: PREDNISONE10 MG PO (10:21)
[2022-03-17] MEDS ORDERED: MUCINEX ER600 MG PO (10:21)
[2022-03-17 12:00] VITALS: BP 109/62
== END 2022-03-17 15:07 | disposition home or self-care (01) | DRG 871 ==
LOC: ED 21:55 → 4E 03-02 00:05 → EDHOLD 03-02 00:05 → 4E 03-02 00:22
PROVIDERS: Emergency Medicine; Hospitalist; Internal Medicine; Internal Medicine Critical Care Medicine; Registered Nurse; ADMIT Internal Medicine; ATTEND Internal Medicine
PROC: 0BC98ZZ Extirpation of Matter from Lingula Bronchus, Via Natural or Artificial Opening Endoscopic (ICD-10-PCS; principal; 2022-03-07)
PROC: 0BC48ZZ Extirpation of Matter from Right Upper Lobe Bronchus, Via Natural or Artificial Opening Endoscopic (ICD-10-PCS; 2022-03-07)
PROC: 0BC88ZZ Extirpation of Matter from Left Upper Lobe Bronchus, Via Natural or Artificial Opening Endoscopic (ICD-10-PCS; 2022-03-07)
PROC: 0BC58ZZ Extirpation of Matter from Right Middle Lobe Bronchus, Via Natural or Artificial Opening Endoscopic (ICD-10-PCS; 2022-03-07)
PROC: 0BC38ZZ Extirpation of Matter from Right Main Bronchus, Via Natural or Artificial Opening Endoscopic (ICD-10-PCS; 2022-03-07)
PROC: 0BC78ZZ Extirpation of Matter from Left Main Bronchus, Via Natural or Artificial Opening Endoscopic (ICD-10-PCS; 2022-03-07)
PROC: 0BC68ZZ Extirpation of Matter from Right Lower Lobe Bronchus, Via Natural or Artificial Opening Endoscopic (ICD-10-PCS; 2022-03-07)
PROC: 0BCB8ZZ Extirpation of Matter from Left Lower Lobe Bronchus, Via Natural or Artificial Opening Endoscopic (ICD-10-PCS; 2022-03-07)
PROC: 0BC18ZZ Extirpation of Matter from Trachea, Via Natural or Artificial Opening Endoscopic (ICD-10-PCS; 2022-03-07)
DX: A41.9 Sepsis, unspecified organism (principal); J15.6 Pneumonia due to other Gram-negative bacteria; J15.1 Pneumonia due to Pseudomonas; J44.1 Chronic obstructive pulmonary disease with (acute) exacerbation; E87.1 Hypo-osmolality and hyponatremia; J96.11 Chronic respiratory failure with hypoxia; E44.0 Moderate protein-calorie malnutrition; J44.0 Chronic obstructive pulmonary disease with (acute) lower respiratory infection; J98.11 Atelectasis; T17.590A Other foreign object in bronchus causing asphyxiation, initial encounter; J20.9 Acute bronchitis, unspecified; Z20.822 Contact with and (suspected) exposure to COVID-19; D64.9 Anemia, unspecified; X58.XXXA Exposure to other specified factors, initial encounter; R73.9 Hyperglycemia, unspecified; I10 Essential (primary) hypertension; F17.210 Nicotine dependence, cigarettes, uncomplicated; K21.9 Gastro-esophageal reflux disease without esophagitis; E53.8 Deficiency of other specified B group vitamins; E55.9 Vitamin D deficiency, unspecified; E78.2 Mixed hyperlipidemia; M19.90 Unspecified osteoarthritis, unspecified site; F12.90 Cannabis use, unspecified, uncomplicated; Z71.6 Tobacco abuse counseling; Z99.81 Dependence on supplemental oxygen; Z88.0 Allergy status to penicillin; Z82.5 Family history of asthma and other chronic lower respiratory diseases; Z83.3 Family history of diabetes mellitus; Z79.51 Long term (current) use of inhaled steroids; Z79.899 Other long term (current) drug therapy; Y93.89 Activity, other specified; Y92.89 Other specified places as the place of occurrence of the external cause; Y99.8 Other external cause status

== ENCOUNTER 2022-04-10 19:37 | Emergency (ER) | payer MEDICARE ==
[~2022-04-10] VITALS: Ht 162.5 cm; Wt 47.6 kg
[~2022-04-10 19:37] MED LIST changes: +CEFEPIME1 GM/50 ML IV; +MUCINEX ER600 MG PO
[2022-04-10 22:14] LABS: BASO % 0.2 % (0.0-1.0); EOS % 0.1 % (1.0-4.0); HEMATOCRIT 34.3 % (42.0-52.0); LYMPH # 1.2 10*3/uL (1.3-4.4); LYMPH % 9.4 % (27.0-41.0); MEAN CELL VOLUME 95.8 fl (80.0-94.0); MEAN CORPUSCULAR HGB CONC 32.4 g/dl (33.0-37.0); MEAN PLATELET VOLUME 8.5 fl (9.6-12.3); MONO # 0.6 10*3/uL (0.1-1.0); MONO % 4.9 % (3.0-9.0); NEUT # 10.5 10*3/uL (2.3-7.9); NEUT % 84.4 % (47.0-73.0); PLATELET COUNT AUTOMATED 254 10*3/uL (130-400); RED BLOOD COUNT 3.58 10*6/uL (4.50-5.90); RED CELL DISTRI WIDTH 14.7 % (0-14.5); WHITE BLOOD COUNT 12.4 10*3/uL (4.8-10.8)
[2022-04-10 22:29] LABS: ALKALINE PHOSPHATASE 35 U/L (45-117); BUN 12 mg/dl (7-24); CHLORIDE 104 mmol/L (98-107); CREATININE 1.02 mg/dL (0.70-1.30); POTASSIUM 4.2 mmol/L (3.5-5.1); SGOT/AST 12 IU/L (3-35); SGPT/ALT 11 U/L (12-78); SODIUM 136 mmol/L (136-145); TOTAL PROTEIN 5.8 gm/dL (6.4-8.2)
== END 2022-04-11 07:38 | disposition home or self-care (01) ==
LOC: ED 19:37
PROVIDERS: Emergency Medicine
DX: T17.928A Food in respiratory tract, part unspecified causing other injury, initial encounter (principal); J44.9 Chronic obstructive pulmonary disease, unspecified; K21.9 Gastro-esophageal reflux disease without esophagitis; E78.5 Hyperlipidemia, unspecified; I10 Essential (primary) hypertension; F17.200 Nicotine dependence, unspecified, uncomplicated; Z88.0 Allergy status to penicillin; Z79.899 Other long term (current) drug therapy; Z90.89 Acquired absence of other organs; X58.XXXA Exposure to other specified factors, initial encounter; Y93.89 Activity, other specified; Y92.89 Other specified places as the place of occurrence of the external cause; Y99.8 Other external cause status

== ENCOUNTER 2022-05-06 15:23 | Inpatient (IN) | payer MEDICARE ==
[~2022-05-06] VITALS: Ht 162.5 cm; Wt 45.8 kg
[2022-05-06 15:37] VITALS: BP 122/72
[2022-05-06 15:43] LABS: HEMATOCRIT 40.8 % (42.0-52.0); MEAN CELL VOLUME 95.8 fl (80.0-94.0); MEAN CORPUSCULAR HGB 31.5 pg (27.0-31.0); MEAN CORPUSCULAR HGB CONC 32.8 g/dl (33.0-37.0); MEAN PLATELET VOLUME 8.4 fl (9.6-12.3); PLATELET COUNT AUTOMATED 388 10*3/uL (130-400); RED BLOOD COUNT 4.26 10*6/uL (4.50-5.90); RED CELL DISTRI WIDTH 13.8 % (0-14.5); WHITE BLOOD COUNT 12.3 10*3/uL (4.8-10.8)
[2022-05-06 15:51] LABS: MANUAL DIFF REFLEX YES
[2022-05-06 16:01] LABS: ACT PARTIAL THROMBO TIME 28.2 SECONDS (20.0-32.1); INTERNATIONAL NORM RATIO 0.9 (2.0-3.5)
[2022-05-06 16:04] LABS: ALKALINE PHOSPHATASE 46 U/L (45-117); BUN 9 mg/dl (7-24); CHLORIDE 93 mmol/L (98-107); CREATININE 1.07 mg/dL (0.70-1.30); POTASSIUM 4.6 mmol/L (3.5-5.1); SGOT/AST 13 IU/L (3-35); SGPT/ALT 11 U/L (12-78); SODIUM 124 mmol/L (136-145); TOTAL CELLS COUNTED 100 #CELLS; TOTAL PROTEIN 7.2 gm/dL (6.4-8.2)
[2022-05-06 16:05] LABS: BURR CELLS FEW; PLATELET SUFFICIENCY NORMAL (NORMAL)
[2022-05-06 18:00] VITALS: BP 123/67
[2022-05-06 18:52] LABS: BILIRUBIN Negative (Negative); BLOOD Negative (Negative); CLARITY Clear (Clear); COLOR Yellow (Yellow); GLUCOSE Negative (Negative); KETONE 1+ (Negative); LEUKO ESTERASE Negative (Negative); NITRITE Negative (Negative); UROBILINOGEN 0.2 E.U./dl (0.0-1.0)
[2022-05-06 19:18] LABS: BACTERIA TRACE; RBC 0-2 rbc/hpf (0-2); WBC 0-2 wbc/hpf (0-5)
[2022-05-06 20:00] VITALS: BP 110/66
[2022-05-06 21:09] LABS: BUN 9 mg/dl (7-24); CHLORIDE 99 mmol/L (98-107); CREATININE 0.86 mg/dL (0.70-1.30); POTASSIUM 4.4 mmol/L (3.5-5.1); SODIUM 129 mmol/L (136-145)
[2022-05-07] VITALS: BP 111/57
[2022-05-07 06:07] LABS: ALKALINE PHOSPHATASE 43 U/L (45-117); BUN 11 mg/dl (7-24); CHLORIDE 100 mmol/L (98-107); CREATININE 0.88 mg/dL (0.70-1.30); POTASSIUM 4.5 mmol/L (3.5-5.1); SGOT/AST 12 IU/L (3-35); SGPT/ALT 8 U/L (12-78); SODIUM 132 mmol/L (136-145); TOTAL PROTEIN 5.7 gm/dL (6.4-8.2)
[2022-05-07 06:12] LABS: BASO % 0.2 % (0.0-1.0); HEMATOCRIT 33.6 % (42.0-52.0); LYMPH # 0.5 10*3/uL (1.3-4.4); LYMPH % 9.9 % (27.0-41.0); MEAN CORPUSCULAR HGB CONC 33.3 g/dl (33.0-37.0); MEAN PLATELET VOLUME 9.1 fl (9.6-12.3); MONO # 0.1 10*3/uL (0.1-1.0); MONO % 1.1 % (3.0-9.0); NEUT # 4.6 10*3/uL (2.3-7.9); NEUT % 87.8 % (47.0-73.0); PLATELET COUNT AUTOMATED 332 10*3/uL (130-400); RED CELL DISTRI WIDTH 13.7 % (0-14.5); WHITE BLOOD COUNT 5.2 10*3/uL (4.8-10.8)
[2022-05-07 08:00] VITALS: BP 107/69
[2022-05-07 12:26] VITALS: BP 113/63
[2022-05-07 16:00] VITALS: BP 108/68
[2022-05-07 20:00] VITALS: BP 110/61
[2022-05-08] VITALS: BP 109/61
[2022-05-08 06:16] LABS: BUN 17 mg/dl (7-24); CHLORIDE 103 mmol/L (98-107); CREATININE 0.95 mg/dL (0.70-1.30); POTASSIUM 4.6 mmol/L (3.5-5.1); SODIUM 136 mmol/L (136-145)
[2022-05-08 06:55] LABS: BASO % 0.1 % (0.0-1.0); HEMATOCRIT 30.9 % (42.0-52.0); LYMPH # 0.5 10*3/uL (1.3-4.4); LYMPH % 3.6 % (27.0-41.0); MEAN CELL VOLUME 95.1 fl (80.0-94.0); MEAN CORPUSCULAR HGB 31.4 pg (27.0-31.0); MEAN PLATELET VOLUME 9.1 fl (9.6-12.3); MONO # 0.4 10*3/uL (0.1-1.0); MONO % 2.7 % (3.0-9.0); PLATELET COUNT AUTOMATED 343 10*3/uL (130-400); RED BLOOD COUNT 3.25 10*6/uL (4.50-5.90); RED CELL DISTRI WIDTH 13.9 % (0-14.5); WHITE BLOOD COUNT 12.9 10*3/uL (4.8-10.8)
[2022-05-08 08:00] VITALS: BP 103/59
[2022-05-08 08:31] LABS: BURR CELLS FEW; OVALOCYTES FEW; PLATELET SUFFICIENCY NORMAL (NORMAL); TOTAL CELLS COUNTED 100 #CELLS
[2022-05-08 12:00] VITALS: BP 116/63
[2022-05-08 16:00] VITALS: BP 122/70
[2022-05-08 20:00] VITALS: BP 119/69
[2022-05-09] VITALS: BP 114/69
[2022-05-09 06:28] LABS: HEMATOCRIT 31.2 % (42.0-52.0); MEAN CELL VOLUME 97.2 fl (80.0-94.0); MEAN CORPUSCULAR HGB 31.5 pg (27.0-31.0); MEAN CORPUSCULAR HGB CONC 32.4 g/dl (33.0-37.0); PLATELET COUNT AUTOMATED 330 10*3/uL (130-400); RED BLOOD COUNT 3.21 10*6/uL (4.50-5.90); RED CELL DISTRI WIDTH 14.1 % (0-14.5); WHITE BLOOD COUNT 12.1 10*3/uL (4.8-10.8)
[2022-05-09 06:39] LABS: MANUAL DIFF REFLEX YES
[2022-05-09 08:00] VITALS: BP 120/61
[2022-05-09 08:03] LABS: BURR CELLS FEW; PLATELET SUFFICIENCY NORMAL (NORMAL); POLYCHROMASIA SLIGHT; TOTAL CELLS COUNTED 100 #CELLS
[2022-05-09 08:04] LABS: OVALOCYTES FEW
[2022-05-09] MEDS ORDERED: DOXYCYCLINE HY100 M3 PO ×2 (10:56)
[2022-05-09] MEDS ORDERED: PREDNISONE10 MG PO (10:56)
[2022-05-09 16:00] VITALS: BP 133/57
[2022-05-09 20:00] VITALS: BP 134/57
[2022-05-10] VITALS: BP 122/69
[2022-05-10 08:00] VITALS: BP 110/60
[2022-05-22] MEDS ORDERED: DOXYCYCLINE HY100 M3 PO (14:17)
[2022-05-22] MEDS ORDERED: PREDNISONE10 MG PO (14:17)
== END 2022-05-10 10:41 | disposition home or self-care (01) | DRG 871 ==
LOC: ED 15:23 → 4E 16:48 → EDHOLD 16:48 → 4E 17:32
PROVIDERS: Emergency Medicine; Family Medicine; Student in an Organized Health Care Education/Training Program; ADMIT Family Medicine; ATTEND Family Medicine
DX: A41.9 Sepsis, unspecified organism (principal); E43 Unspecified severe protein-calorie malnutrition; J18.9 Pneumonia, unspecified organism; E87.1 Hypo-osmolality and hyponatremia; J96.11 Chronic respiratory failure with hypoxia; R64 Cachexia; Z68.1 Body mass index [BMI] 19.9 or less, adult; J44.1 Chronic obstructive pulmonary disease with (acute) exacerbation; K21.9 Gastro-esophageal reflux disease without esophagitis; M19.90 Unspecified osteoarthritis, unspecified site; E78.5 Hyperlipidemia, unspecified; I10 Essential (primary) hypertension; I25.10 Atherosclerotic heart disease of native coronary artery without angina pectoris; E53.8 Deficiency of other specified B group vitamins; E55.9 Vitamin D deficiency, unspecified; R73.9 Hyperglycemia, unspecified; Z88.0 Allergy status to penicillin; Z83.3 Family history of diabetes mellitus; Z83.6 Family history of other diseases of the respiratory system; Z99.81 Dependence on supplemental oxygen

== ENCOUNTER 2022-07-10 20:17 | Emergency (ER) | payer MEDICARE ==
[~2022-07-10 20:17] MED LIST changes: +METRONIDAZOLE500 M1 PO
[2022-07-10 20:47] LABS: BASO # 0.1 10*3/uL (0.0-0.1); BASO % 0.5 % (0.0-1.0); EOS # 0.4 10*3/uL (0.0-0.4); HEMATOCRIT 30.4 % (42.0-52.0); LYMPH # 1.2 10*3/uL (1.3-4.4); LYMPH % 9.8 % (27.0-41.0); MEAN CORPUSCULAR HGB 30.5 pg (27.0-31.0); MEAN CORPUSCULAR HGB CONC 33.6 g/dl (33.0-37.0); MEAN PLATELET VOLUME 8.6 fl (9.6-12.3); MONO # 1.1 10*3/uL (0.1-1.0); MONO % 8.6 % (3.0-9.0); NEUT # 9.3 10*3/uL (2.3-7.9); NEUT % 76.1 % (47.0-73.0); PLATELET COUNT AUTOMATED 640 10*3/uL (130-400); RED BLOOD COUNT 3.34 10*6/uL (4.50-5.90); RED CELL DISTRI WIDTH 14.6 % (0-14.5); WHITE BLOOD COUNT 12.3 10*3/uL (4.8-10.8)
[2022-07-10 21:05] LABS: ALKALINE PHOSPHATASE 38 U/L (45-117); BUN 7 mg/dl (7-24); CHLORIDE 100 mmol/L (98-107); CREATININE 0.83 mg/dL (0.70-1.30); POTASSIUM 3.4 mmol/L (3.5-5.1); SGOT/AST 15 IU/L (3-35); SGPT/ALT 8 U/L (12-78); SODIUM 135 mmol/L (136-145); TOTAL PROTEIN 6.1 gm/dL (6.4-8.2)
== END 2022-07-10 22:06 ==
LOC: ED 20:17
PROVIDERS: Internal Medicine
DX: T85.698A Other mechanical complication of other specified internal prosthetic devices, implants and grafts, initial encounter (principal); D72.829 Elevated white blood cell count, unspecified; D64.9 Anemia, unspecified; E87.8 Other disorders of electrolyte and fluid balance, not elsewhere classified; E43 Unspecified severe protein-calorie malnutrition; D75.839 Thrombocytosis, unspecified; Y92.89 Other specified places as the place of occurrence of the external cause

== ENCOUNTER 2022-10-01 15:28 | Inpatient (IN) | payer MEDICARE ==
[~2022-10-01] VITALS: Ht 163 cm; Wt 45.8 kg
[~2022-10-01 15:28] MED LIST changes: +HYDROCODONE-AC1 EAC1 PO; +PHARMASSURE V500 MCG PO; +PREMIERPRO RX ME1 GM IV; +VIBRAMYCIN100 MG PO
[2022-10-01 15:46] VITALS: BP 111/80
[2022-10-01 16:21] LABS: BASO # 0.1 10*3/uL (0.0-0.1); BASO % 0.5 % (0.0-1.0); EOS # 0.2 10*3/uL (0.0-0.4); EOS % 2.5 % (1.0-4.0); HEMATOCRIT 33.9 % (42.0-52.0); LYMPH # 1.2 10*3/uL (1.3-4.4); MEAN CELL VOLUME 92.6 fl (80.0-94.0); MEAN CORPUSCULAR HGB 31.1 pg (27.0-31.0); MEAN CORPUSCULAR HGB CONC 33.6 g/dl (33.0-37.0); MEAN PLATELET VOLUME 8.3 fl (9.6-12.3); MONO # 0.9 10*3/uL (0.1-1.0); MONO % 8.9 % (3.0-9.0); NEUT # 7.3 10*3/uL (2.3-7.9); NEUT % 75.4 % (47.0-73.0); PLATELET COUNT AUTOMATED 444 10*3/uL (130-400); RED BLOOD COUNT 3.66 10*6/uL (4.50-5.90); RED CELL DISTRI WIDTH 13.4 % (0-14.5); WHITE BLOOD COUNT 9.7 10*3/uL (4.8-10.8)
[2022-10-01 16:31] LABS: ACT PARTIAL THROMBO TIME 28.4 SECONDS (20.0-32.1)
[2022-10-01 16:39] LABS: ALKALINE PHOSPHATASE 46 U/L (46-116); BUN 8 mg/dl (9-23); CHLORIDE 89 mmol/L (98-107); CREATININE 1.03 mg/dL (0.70-1.30); LIPASE 29 U/L (12-53); POTASSIUM 4.2 mmol/L (3.4-5.1); SODIUM 126 mmol/L (136-145); TOTAL PROTEIN 7.2 gm/dL (6.0-8.0)
[2022-10-01 16:54] LABS: SGPT/ALT 11 U/L (10-49)
[2022-10-01 20:53] VITALS: BP 97/66
[2022-10-02 00:44] VITALS: BP 95/57
[2022-10-02 00:47] VITALS: BP 101/62
[2022-10-02 07:25] LABS: HEMATOCRIT 29.2 % (42.0-52.0); LYMPH # 0.5 10*3/uL (1.3-4.4); LYMPH % 15.1 % (27.0-41.0); MEAN CELL VOLUME 91.5 fl (80.0-94.0); MEAN CORPUSCULAR HGB CONC 33.9 g/dl (33.0-37.0); MEAN PLATELET VOLUME 8.8 fl (9.6-12.3); MONO # 0.1 10*3/uL (0.1-1.0); MONO % 2.5 % (3.0-9.0); NEUT # 2.9 10*3/uL (2.3-7.9); PLATELET COUNT AUTOMATED 423 10*3/uL (130-400); RED BLOOD COUNT 3.19 10*6/uL (4.50-5.90); RED CELL DISTRI WIDTH 13.5 % (0-14.5); WHITE BLOOD COUNT 3.6 10*3/uL (4.8-10.8)
[2022-10-02 08:20] LABS: ALKALINE PHOSPHATASE 35 U/L (46-116); BUN 12 mg/dl (9-23); CHLORIDE 96 mmol/L (98-107); CREATININE 1.04 mg/dL (0.70-1.30); SODIUM 126 mmol/L (136-145); TOTAL PROTEIN 6.3 gm/dL (6.0-8.0)
[2022-10-02 08:27] LABS: POTASSIUM 5.2 mmol/L (3.4-5.1); SGPT/ALT < 7 U/L (10-49)
[2022-10-02 12:32] VITALS: BP 119/68
[2022-10-02 15:37] LABS: BILIRUBIN Negative (Negative); BLOOD Negative (Negative); CLARITY Clear (Clear); COLOR Yellow (Yellow); GLUCOSE Trace (Negative); KETONE 1+ (Negative); LEUKO ESTERASE Negative (Negative); NITRITE Negative (Negative); PH 5.5 (4.5-8.0); SPECIFIC GRAVITY 1.025 (1.001-1.030); UROBILINOGEN 0.2 E.U./dl (0.0-1.0)
[2022-10-02 15:46] LABS: URINE CREATININE RANDOM 185.74 mg/dL
[2022-10-02 16:00] VITALS: BP 123/57
[2022-10-02 16:13] LABS: RBC 0-2 rbc/hpf (0-2)
[2022-10-02 16:14] LABS: YEAST 2+
[2022-10-02 20:00] VITALS: BP 117/69
[2022-10-03] VITALS: BP 111/73
[2022-10-03 07:16] LABS: HEMATOCRIT 27.3 % (42.0-52.0); MEAN CELL VOLUME 91.6 fl (80.0-94.0); MEAN CORPUSCULAR HGB 31.5 pg (27.0-31.0); MEAN CORPUSCULAR HGB CONC 34.4 g/dl (33.0-37.0); MEAN PLATELET VOLUME 8.8 fl (9.6-12.3); PLATELET COUNT AUTOMATED 380 10*3/uL (130-400); RED BLOOD COUNT 2.98 10*6/uL (4.50-5.90); RED CELL DISTRI WIDTH 13.7 % (0-14.5); WHITE BLOOD COUNT 9.1 10*3/uL (4.8-10.8)
[2022-10-03 07:17] LABS: MANUAL DIFF REFLEX YES
[2022-10-03 07:47] LABS: BURR CELLS FEW; OVALOCYTES FEW; POLYCHROMASIA SLIGHT; TOTAL CELLS COUNTED 100 #CELLS
[2022-10-03 07:48] LABS: PLATELET SUFFICIENCY NORMAL (NORMAL); SCHISTOCYTES FEW
[2022-10-03 08:00] VITALS: BP 110/68
[2022-10-03 08:57] LABS: ALKALINE PHOSPHATASE 33 U/L (46-116); BUN 10 mg/dl (9-23); CHLORIDE 103 mmol/L (98-107); CREATININE 0.88 mg/dL (0.70-1.30); POTASSIUM 4.6 mmol/L (3.4-5.1); SODIUM 132 mmol/L (136-145); TOTAL PROTEIN 5.9 gm/dL (6.0-8.0)
[2022-10-03 09:37] LABS: SGPT/ALT 9 U/L (12-78)
[2022-10-03 12:00] VITALS: BP 107/61
[2022-10-03 16:00] VITALS: BP 101/70
[2022-10-03 20:00] VITALS: BP 122/72
[2022-10-04] VITALS: BP 116/72
[2022-10-04 07:44] LABS: BASO % 0.1 % (0.0-1.0); HEMATOCRIT 24.4 % (42.0-52.0); LYMPH # 0.6 10*3/uL (1.3-4.4); LYMPH % 6.9 % (27.0-41.0); MEAN CELL VOLUME 93.8 fl (80.0-94.0); MEAN CORPUSCULAR HGB 31.5 pg (27.0-31.0); MEAN CORPUSCULAR HGB CONC 33.6 g/dl (33.0-37.0); MONO # 0.5 10*3/uL (0.1-1.0); MONO % 5.2 % (3.0-9.0); NEUT # 7.5 10*3/uL (2.3-7.9); NEUT % 86.5 % (47.0-73.0); PLATELET COUNT AUTOMATED 325 10*3/uL (130-400); RED CELL DISTRI WIDTH 13.7 % (0-14.5); WHITE BLOOD COUNT 8.7 10*3/uL (4.8-10.8)
[2022-10-04 07:57] LABS: BUN 12 mg/dl (9-23); CHLORIDE 106 mmol/L (98-107); CREATININE 0.84 mg/dL (0.70-1.30); POTASSIUM 4.5 mmol/L (3.4-5.1); SODIUM 134 mmol/L (136-145)
[2022-10-04 08:00] VITALS: BP 109/63; BP 118/72
[2022-10-04 12:00] VITALS: BP 116/61
[2022-10-04 16:00] VITALS: BP 116/66
[2022-10-05] VITALS: BP 126/73
[2022-10-05 06:27] LABS: BASO % 0.1 % (0.0-1.0); HEMATOCRIT 28.6 % (42.0-52.0); LYMPH # 0.6 10*3/uL (1.3-4.4); MEAN CORPUSCULAR HGB 30.9 pg (27.0-31.0); MEAN CORPUSCULAR HGB CONC 32.2 g/dl (33.0-37.0); MEAN PLATELET VOLUME 8.7 fl (9.6-12.3); MONO # 0.3 10*3/uL (0.1-1.0); MONO % 2.8 % (3.0-9.0); NEUT # 8.2 10*3/uL (2.3-7.9); NEUT % 89.5 % (47.0-73.0); PLATELET COUNT AUTOMATED 324 10*3/uL (130-400); RED BLOOD COUNT 2.98 10*6/uL (4.50-5.90); RED CELL DISTRI WIDTH 13.7 % (0-14.5); WHITE BLOOD COUNT 9.2 10*3/uL (4.8-10.8)
[2022-10-05 06:43] LABS: BUN 14 mg/dl (9-23); CHLORIDE 103 mmol/L (98-107); CREATININE 0.86 mg/dL (0.70-1.30); POTASSIUM 4.6 mmol/L (3.4-5.1); SODIUM 135 mmol/L (136-145)
[2022-10-05 08:00] VITALS: BP 126/70
[2022-10-05 12:00] VITALS: BP 132/74
[2022-10-05 16:00] VITALS: BP 109/72
[2022-10-05 20:00] VITALS: BP 120/70
[2022-10-06] VITALS: BP 123/72
[2022-10-06 06:49] LABS: BASO % 0.2 % (0.0-1.0); HEMATOCRIT 29.1 % (42.0-52.0); LYMPH # 0.7 10*3/uL (1.3-4.4); LYMPH % 7.3 % (27.0-41.0); MEAN CELL VOLUME 96.7 fl (80.0-94.0); MEAN CORPUSCULAR HGB 30.6 pg (27.0-31.0); MEAN CORPUSCULAR HGB CONC 31.6 g/dl (33.0-37.0); MONO # 0.3 10*3/uL (0.1-1.0); MONO % 2.7 % (3.0-9.0); NEUT # 8.7 10*3/uL (2.3-7.9); NEUT % 87.7 % (47.0-73.0); PLATELET COUNT AUTOMATED 323 10*3/uL (130-400); RED BLOOD COUNT 3.01 10*6/uL (4.50-5.90); RED CELL DISTRI WIDTH 13.7 % (0-14.5); WHITE BLOOD COUNT 9.9 10*3/uL (4.8-10.8)
[2022-10-06 07:04] LABS: BUN 15 mg/dl (9-23); CHLORIDE 105 mmol/L (98-107); CREATININE 0.91 mg/dL (0.70-1.30); SODIUM 137 mmol/L (136-145)
[2022-10-06 07:09] LABS: POTASSIUM 3.6 mmol/L (3.4-5.1)
[2022-10-06 08:00] VITALS: BP 114/70
[2022-10-06 12:00] VITALS: BP 120/64
[2022-10-06 16:00] VITALS: BP 119/66
[2022-10-06 20:00] VITALS: BP 120/65
[2022-10-07] VITALS: BP 114/66
[2022-10-07 08:00] VITALS: BP 116/65
[2022-10-07 12:00] VITALS: BP 109/65
[2022-10-07 14:24] LABS: BUN 18 mg/dl (9-23); CHLORIDE 104 mmol/L (98-107); CREATININE 0.99 mg/dL (0.70-1.30); POTASSIUM 4.2 mmol/L (3.4-5.1); SODIUM 137 mmol/L (136-145)
[2022-10-07 16:00] VITALS: BP 115/63
[2022-10-07 20:00] VITALS: BP 109/65
[2022-10-08] VITALS: BP 114/77
[2022-10-08 07:17] VITALS: BP 112/68
[2022-10-08 12:00] VITALS: BP 108/62
[2022-10-08 16:00] VITALS: BP 107/80
[2022-10-08 20:00] VITALS: BP 110/62
[2022-10-09] VITALS: BP 104/77
[2022-10-09 07:02] LABS: MEAN CELL VOLUME 97.6 fl (80.0-94.0); MEAN CORPUSCULAR HGB 31.7 pg (27.0-31.0); MEAN CORPUSCULAR HGB CONC 32.5 g/dl (33.0-37.0); MEAN PLATELET VOLUME 8.6 fl (9.6-12.3); PLATELET COUNT AUTOMATED 228 10*3/uL (130-400); RED BLOOD COUNT 2.87 10*6/uL (4.50-5.90); RED CELL DISTRI WIDTH 14.3 % (0-14.5); WHITE BLOOD COUNT 11.2 10*3/uL (4.8-10.8)
[2022-10-09 07:06] LABS: MANUAL DIFF REFLEX YES
[2022-10-09 07:19] LABS: BUN 21 mg/dl (9-23); CHLORIDE 102 mmol/L (98-107); CREATININE 0.88 mg/dL (0.70-1.30); POTASSIUM 4.2 mmol/L (3.4-5.1); SODIUM 135 mmol/L (136-145)
[2022-10-09 07:33] LABS: POLYCHROMASIA SLIGHT; SCHISTOCYTES FEW; TOTAL CELLS COUNTED 100 #CELLS
[2022-10-09 07:34] LABS: BURR CELLS FEW; OVALOCYTES FEW; PLATELET SUFFICIENCY NORMAL (NORMAL)
[2022-10-09 08:00] VITALS: BP 110/63
[2022-10-09] MEDS ORDERED: NICODERM T (11:06)
[2022-10-09] MEDS ORDERED: MUCINEX ER600 MG PO (11:06)
[2022-10-09] MEDS ORDERED: PREDNISONE20 M1 PO (11:06)
[2022-10-09] MEDS ORDERED: CALCIUM CARBON200 MG PO (11:06)
[2022-10-09 12:00] VITALS: BP 120/67
== END 2022-10-09 16:22 | disposition home or self-care (01) | DRG 871 ==
LOC: ED 15:28 → EDHOLD 18:21 → 5E 18:21
PROVIDERS: Emergency Medicine; Internal Medicine; Internal Medicine Nephrology; Student in an Organized Health Care Education/Training Program; ADMIT Family Medicine; ATTEND Family Medicine
DX: A41.9 Sepsis, unspecified organism (principal); J15.6 Pneumonia due to other Gram-negative bacteria; J96.21 Acute and chronic respiratory failure with hypoxia; J96.02 Acute respiratory failure with hypercapnia; J44.1 Chronic obstructive pulmonary disease with (acute) exacerbation; E44.0 Moderate protein-calorie malnutrition; E87.1 Hypo-osmolality and hyponatremia; Z68.1 Body mass index [BMI] 19.9 or less, adult; J44.0 Chronic obstructive pulmonary disease with (acute) lower respiratory infection; F41.1 Generalized anxiety disorder; E78.5 Hyperlipidemia, unspecified; K21.9 Gastro-esophageal reflux disease without esophagitis; M19.90 Unspecified osteoarthritis, unspecified site; E83.42 Hypomagnesemia; D75.839 Thrombocytosis, unspecified; D64.9 Anemia, unspecified; E87.8 Other disorders of electrolyte and fluid balance, not elsewhere classified; I10 Essential (primary) hypertension; F17.210 Nicotine dependence, cigarettes, uncomplicated; E87.5 Hyperkalemia; J20.9 Acute bronchitis, unspecified; Z88.0 Allergy status to penicillin; Z99.81 Dependence on supplemental oxygen; Z90.49 Acquired absence of other specified parts of digestive tract; Z83.3 Family history of diabetes mellitus; Z83.6 Family history of other diseases of the respiratory system

== ENCOUNTER 2022-10-28 13:44 | Emergency (ER) | payer MEDICARE ==
[~2022-10-28] VITALS: Wt 54.4 kg
[~2022-10-28 13:44] MED LIST changes: +CALCIUM CARBON200 MG PO; +NICODERM T; +PREDNISONE20 M1 PO
[2022-10-28 14:17] LABS: BASO % 0.2 % (0.0-1.0); EOS # 0.6 10*3/uL (0.0-0.4); EOS % 6.6 % (1.0-4.0); HEMATOCRIT 31.9 % (42.0-52.0); LYMPH # 1.8 10*3/uL (1.3-4.4); LYMPH % 19.9 % (27.0-41.0); MEAN CELL VOLUME 94.4 fl (80.0-94.0); MEAN CORPUSCULAR HGB 30.2 pg (27.0-31.0); MEAN PLATELET VOLUME 8.5 fl (9.6-12.3); MONO # 0.9 10*3/uL (0.1-1.0); MONO % 10.1 % (3.0-9.0); NEUT # 5.6 10*3/uL (2.3-7.9); NEUT % 62.8 % (47.0-73.0); PLATELET COUNT AUTOMATED 389 10*3/uL (130-400); RED BLOOD COUNT 3.38 10*6/uL (4.50-5.90); RED CELL DISTRI WIDTH 13.9 % (0-14.5); WHITE BLOOD COUNT 8.9 10*3/uL (4.8-10.8)
[2022-10-28 14:33] LABS: ALKALINE PHOSPHATASE 34 U/L (46-116); BUN 8 mg/dl (9-23); CHLORIDE 96 mmol/L (98-107); POTASSIUM 4.1 mmol/L (3.4-5.1); TOTAL PROTEIN 5.9 gm/dL (6.0-8.0)
[2022-10-28 14:34] LABS: SGPT/ALT < 7 U/L (10-49)
[2022-10-28] MEDS ORDERED: VIBRA-TAB100 MG PO (14:59)
== END 2022-10-28 15:01 | disposition home or self-care (01) ==
LOC: ED 13:44
PROVIDERS: Emergency Medicine
DX: J44.1 Chronic obstructive pulmonary disease with (acute) exacerbation (principal); Z88.0 Allergy status to penicillin; Z90.49 Acquired absence of other specified parts of digestive tract; Z98.890 Other specified postprocedural states; F17.200 Nicotine dependence, unspecified, uncomplicated; F12.90 Cannabis use, unspecified, uncomplicated

== ENCOUNTER 2022-11-24 17:52 | Inpatient (IN) | payer MEDICARE ==
[~2022-11-24] VITALS: Ht 162.6 cm; Wt 45.4 kg
[~2022-11-24 17:52] MED LIST changes: +VIBRA-TAB100 MG PO
[2022-11-24 18:00] VITALS: BP 124/71
[2022-11-24 18:17] LABS: HEMATOCRIT 34.5 % (42.0-52.0); MEAN CELL VOLUME 93.5 fl (80.0-94.0); MEAN CORPUSCULAR HGB 30.4 pg (27.0-31.0); MEAN CORPUSCULAR HGB CONC 32.5 g/dl (33.0-37.0); MEAN PLATELET VOLUME 8.5 fl (9.6-12.3); PLATELET COUNT AUTOMATED 329 10*3/uL (130-400); RED BLOOD COUNT 3.69 10*6/uL (4.50-5.90); RED CELL DISTRI WIDTH 13.9 % (0-14.5)
[2022-11-24 18:24] LABS: MANUAL DIFF REFLEX YES
[2022-11-24 18:33] LABS: ALKALINE PHOSPHATASE 34 U/L (46-116); BUN 7 mg/dl (9-23); CHLORIDE 93 mmol/L (98-107); SGPT/ALT 10 U/L (10-49); TOTAL PROTEIN 6.5 gm/dL (6.0-8.0)
[2022-11-24 18:40] LABS: PLATELET SUFFICIENCY NORMAL (NORMAL); TOTAL CELLS COUNTED 100 #CELLS
[2022-11-24 18:41] LABS: BURR CELLS MODERATE
[2022-11-24 18:42] LABS: ACANTHOCYTES FEW; OVALOCYTES FEW; TARGET CELLS FEW
[2022-11-24 21:15] VITALS: BP 124/71
[2022-11-25 01:56] LABS: BILIRUBIN Negative (Negative); CLARITY Clear (Clear); COLOR Yellow (Yellow); GLUCOSE Negative (Negative); KETONE Negative (Negative); LEUKO ESTERASE Negative (Negative); NITRITE Negative (Negative); PH 6.5 (4.5-8.0); UROBILINOGEN 0.2 E.U./dl (0.0-1.0)
[2022-11-25 02:15] LABS: BLOOD Trace-Intact (Negative)
[2022-11-25 02:16] LABS: MUCOUS 1+
[2022-11-25 04:30] VITALS: BP 92/67; BP 96/65
[2022-11-25 04:35] VITALS: BP 77/47
[2022-11-25 07:54] LABS: HEMATOCRIT 31.6 % (42.0-52.0); MEAN CELL VOLUME 95.5 fl (80.0-94.0); MEAN CORPUSCULAR HGB 29.9 pg (27.0-31.0); MEAN CORPUSCULAR HGB CONC 31.3 g/dl (33.0-37.0); MEAN PLATELET VOLUME 8.9 fl (9.6-12.3); PLATELET COUNT AUTOMATED 303 10*3/uL (130-400); RED BLOOD COUNT 3.31 10*6/uL (4.50-5.90); RED CELL DISTRI WIDTH 14.2 % (0-14.5); WHITE BLOOD COUNT 5.9 10*3/uL (4.8-10.8)
[2022-11-25 08:00] VITALS: BP 114/64
[2022-11-25 08:01] LABS: MANUAL DIFF REFLEX YES
[2022-11-25 08:13] LABS: ACT PARTIAL THROMBO TIME 25.5 SECONDS (20.0-32.1); INTERNATIONAL NORM RATIO 0.9 (2.0-3.5)
[2022-11-25 08:19] LABS: ALKALINE PHOSPHATASE 30 U/L (46-116); BUN 8 mg/dl (9-23); CHLORIDE 95 mmol/L (98-107); POTASSIUM 4.5 mmol/L (3.4-5.1); SGPT/ALT 10 U/L (10-49)
[2022-11-25 08:37] LABS: BURR CELLS FEW; OVALOCYTES FEW; PLATELET SUFFICIENCY NORMAL (NORMAL); TOTAL CELLS COUNTED 100 #CELLS
[2022-11-25 12:00] VITALS: BP 103/60
[2022-11-25 16:00] VITALS: BP 100/60
[2022-11-25 20:00] VITALS: BP 103/60
[2022-11-26] VITALS: BP 96/61
[2022-11-26 06:18] LABS: CHLORIDE 96 mmol/L (98-107); POTASSIUM 4.7 mmol/L (3.4-5.1)
[2022-11-26 06:21] LABS: BUN 18 mg/dl (9-23)
[2022-11-26 06:38] LABS: BASO % 0.1 % (0.0-1.0); HEMATOCRIT 28.9 % (42.0-52.0); LYMPH # 0.9 10*3/uL (1.3-4.4); LYMPH % 7.8 % (27.0-41.0); MEAN CELL VOLUME 94.1 fl (80.0-94.0); MEAN CORPUSCULAR HGB 29.6 pg (27.0-31.0); MEAN CORPUSCULAR HGB CONC 31.5 g/dl (33.0-37.0); MEAN PLATELET VOLUME 9.1 fl (9.6-12.3); MONO # 0.8 10*3/uL (0.1-1.0); MONO % 7.5 % (3.0-9.0); NEUT # 9.5 10*3/uL (2.3-7.9); PLATELET COUNT AUTOMATED 292 10*3/uL (130-400); RED BLOOD COUNT 3.07 10*6/uL (4.50-5.90); RED CELL DISTRI WIDTH 14.3 % (0-14.5); WHITE BLOOD COUNT 11.3 10*3/uL (4.8-10.8)
[2022-11-26 08:00] VITALS: BP 109/62
[2022-11-26 12:00] VITALS: BP 109/64
[2022-11-26 16:00] VITALS: BP 115/61
[2022-11-26 20:00] VITALS: BP 109/69
[2022-11-27] VITALS: BP 98/63
[2022-11-27 07:36] VITALS: BP 116/69
[2022-11-27 09:25] LABS: MANUAL DIFF REFLEX YES; MEAN CORPUSCULAR HGB CONC 30.9 g/dl (33.0-37.0); MEAN PLATELET VOLUME 9.1 fl (9.6-12.3); PLATELET COUNT AUTOMATED 297 10*3/uL (130-400); RED CELL DISTRI WIDTH 14.4 % (0-14.5); RETICULOCYTE % 2.49 % (0.50-2.50); WHITE BLOOD COUNT 10.3 10*3/uL (4.8-10.8)
[2022-11-27 09:41] LABS: BUN 14 mg/dl (9-23); CHLORIDE 99 mmol/L (98-107); POTASSIUM 4.5 mmol/L (3.4-5.1)
[2022-11-27 10:00] LABS: BURR CELLS FEW; OVALOCYTES FEW; PLATELET SUFFICIENCY NORMAL (NORMAL); POLYCHROMASIA SLIGHT; SCHISTOCYTES FEW; TOTAL CELLS COUNTED 100 #CELLS
[2022-11-27 11:48] VITALS: BP 107/86
[2022-11-27 16:00] VITALS: BP 131/67
[2022-11-27 20:00] VITALS: BP 100/81
[2022-11-28] VITALS: BP 117/57
[2022-11-28 07:49] LABS: BASO % 0.1 % (0.0-1.0); HEMATOCRIT 28.6 % (42.0-52.0); LYMPH # 0.7 10*3/uL (1.3-4.4); MEAN CELL VOLUME 96.9 fl (80.0-94.0); MEAN CORPUSCULAR HGB 30.2 pg (27.0-31.0); MEAN CORPUSCULAR HGB CONC 31.1 g/dl (33.0-37.0); MEAN PLATELET VOLUME 9.2 fl (9.6-12.3); MONO # 0.5 10*3/uL (0.1-1.0); MONO % 5.3 % (3.0-9.0); NEUT % 86.4 % (47.0-73.0); PLATELET COUNT AUTOMATED 262 10*3/uL (130-400); RED BLOOD COUNT 2.95 10*6/uL (4.50-5.90); RED CELL DISTRI WIDTH 14.6 % (0-14.5); WHITE BLOOD COUNT 9.3 10*3/uL (4.8-10.8)
[2022-11-28 08:00] VITALS: BP 107/61
[2022-11-28 08:03] LABS: BUN 20 mg/dl (9-23); CHLORIDE 104 mmol/L (98-107); POTASSIUM 4.7 mmol/L (3.4-5.1)
[2022-11-28 12:00] VITALS: BP 101/56
[2022-11-28 16:00] VITALS: BP 110/59
[2022-11-28 20:00] VITALS: BP 130/68
[2022-11-29] VITALS: BP 112/62
[2022-11-29 07:09] LABS: BASO % 0.1 % (0.0-1.0); HEMATOCRIT 28.5 % (42.0-52.0); LYMPH # 0.5 10*3/uL (1.3-4.4); LYMPH % 4.7 % (27.0-41.0); MEAN CELL VOLUME 96.3 fl (80.0-94.0); MEAN CORPUSCULAR HGB 29.7 pg (27.0-31.0); MEAN CORPUSCULAR HGB CONC 30.9 g/dl (33.0-37.0); MEAN PLATELET VOLUME 8.8 fl (9.6-12.3); MONO # 0.5 10*3/uL (0.1-1.0); MONO % 4.9 % (3.0-9.0); NEUT # 9.7 10*3/uL (2.3-7.9); NEUT % 87.8 % (47.0-73.0); PLATELET COUNT AUTOMATED 270 10*3/uL (130-400); RED BLOOD COUNT 2.96 10*6/uL (4.50-5.90); RED CELL DISTRI WIDTH 14.6 % (0-14.5); WHITE BLOOD COUNT 11.1 10*3/uL (4.8-10.8)
[2022-11-29 07:31] LABS: BUN 21 mg/dl (9-23); CHLORIDE 107 mmol/L (98-107); POTASSIUM 4.5 mmol/L (3.4-5.1)
[2022-11-29 08:00] VITALS: BP 118/70
[2022-11-29 12:00] VITALS: BP 117/61
[2022-11-29 16:00] VITALS: BP 122/65
[2022-11-29 20:00] VITALS: BP 124/71
[2022-11-30] VITALS: BP 114/62
[2022-11-30 06:39] LABS: HEMATOCRIT 28.1 % (42.0-52.0); MEAN CELL VOLUME 97.6 fl (80.0-94.0); MEAN CORPUSCULAR HGB 30.2 pg (27.0-31.0); MEAN PLATELET VOLUME 9.2 fl (9.6-12.3); PLATELET COUNT AUTOMATED 256 10*3/uL (130-400); RED BLOOD COUNT 2.88 10*6/uL (4.50-5.90); RED CELL DISTRI WIDTH 14.6 % (0-14.5); WHITE BLOOD COUNT 12.2 10*3/uL (4.8-10.8)
[2022-11-30 06:47] LABS: MANUAL DIFF REFLEX YES
[2022-11-30 07:25] LABS: TOTAL CELLS COUNTED 100 #CELLS
[2022-11-30 07:26] LABS: PLATELET SUFFICIENCY NORMAL (NORMAL)
[2022-11-30 08:00] VITALS: BP 111/70
[2022-11-30 12:00] VITALS: BP 120/70
[2022-11-30 16:00] VITALS: BP 125/67
[2022-11-30 20:00] VITALS: BP 114/62
[2022-12-01] VITALS: BP 114/64
[2022-12-01 05:51] LABS: BUN 22 mg/dl (9-23); CHLORIDE 106 mmol/L (98-107); POTASSIUM 4.5 mmol/L (3.4-5.1)
[2022-12-01 06:15] LABS: HEMATOCRIT 29.1 % (42.0-52.0); MEAN CELL VOLUME 96.4 fl (80.0-94.0); MEAN CORPUSCULAR HGB 29.8 pg (27.0-31.0); MEAN CORPUSCULAR HGB CONC 30.9 g/dl (33.0-37.0); MEAN PLATELET VOLUME 9.1 fl (9.6-12.3); NUCLEATED RED BLOOD CELL 0.2 % (0.0-0.0); PLATELET COUNT AUTOMATED 254 10*3/uL (130-400); RED BLOOD COUNT 3.02 10*6/uL (4.50-5.90); RED CELL DISTRI WIDTH 14.4 % (0-14.5); WHITE BLOOD COUNT 10.2 10*3/uL (4.8-10.8)
[2022-12-01 06:23] LABS: MANUAL DIFF REFLEX YES
[2022-12-01 06:47] LABS: PLATELET SUFFICIENCY NORMAL (NORMAL); TOTAL CELLS COUNTED 100 #CELLS
[2022-12-01 06:48] LABS: BURR CELLS FEW; SCHISTOCYTES FEW; SPHEROCYTES FEW
[2022-12-01 08:00] VITALS: BP 124/73
[2022-12-01 12:00] VITALS: BP 130/65
[2022-12-01 16:00] VITALS: BP 130/61
[2022-12-01 20:00] VITALS: BP 116/65
[2022-12-02] VITALS: BP 113/65
[2022-12-02 06:29] LABS: HEMATOCRIT 28.7 % (42.0-52.0); MEAN CELL VOLUME 97.6 fl (80.0-94.0); MEAN CORPUSCULAR HGB 29.6 pg (27.0-31.0); MEAN CORPUSCULAR HGB CONC 30.3 g/dl (33.0-37.0); MEAN PLATELET VOLUME 8.8 fl (9.6-12.3); NUCLEATED RED BLOOD CELL 0.2 % (0.0-0.0); PLATELET COUNT AUTOMATED 231 10*3/uL (130-400); RED BLOOD COUNT 2.94 10*6/uL (4.50-5.90); RED CELL DISTRI WIDTH 14.6 % (0-14.5); WHITE BLOOD COUNT 11.5 10*3/uL (4.8-10.8)
[2022-12-02 06:35] LABS: MANUAL DIFF REFLEX YES
[2022-12-02 06:56] LABS: PLATELET SUFFICIENCY NORMAL (NORMAL); TOTAL CELLS COUNTED 100 #CELLS
[2022-12-02 06:57] LABS: BURR CELLS FEW; OVALOCYTES FEW; SCHISTOCYTES FEW
[2022-12-02 08:00] VITALS: BP 109/69
[2022-12-02 09:23] LABS: ALKALINE PHOSPHATASE 47 U/L (46-116); BUN 23 mg/dl (9-23); CHLORIDE 104 mmol/L (98-107); POTASSIUM 4.5 mmol/L (3.4-5.1)
[2022-12-02 09:37] LABS: SGPT/ALT < 7 U/L (10-49)
[2022-12-02 12:00] VITALS: BP 123/62
[2022-12-02] MEDS ORDERED: PREDNISONE10 MG PO (12:17)
[2022-12-02 16:00] VITALS: BP 116/68
[2022-12-02 20:00] VITALS: BP 117/63
[2022-12-03] VITALS: BP 112/64
[2022-12-03 06:09] LABS: ALKALINE PHOSPHATASE 45 U/L (46-116); BUN 27 mg/dl (9-23); CHLORIDE 101 mmol/L (98-107); SGPT/ALT 10 U/L (10-49)
[2022-12-03 06:36] LABS: HEMATOCRIT 30.3 % (42.0-52.0); MEAN CELL VOLUME 96.2 fl (80.0-94.0); MEAN CORPUSCULAR HGB 30.5 pg (27.0-31.0); MEAN CORPUSCULAR HGB CONC 31.7 g/dl (33.0-37.0); MEAN PLATELET VOLUME 9.2 fl (9.6-12.3); PLATELET COUNT AUTOMATED 219 10*3/uL (130-400); RED BLOOD COUNT 3.15 10*6/uL (4.50-5.90); RED CELL DISTRI WIDTH 14.6 % (0-14.5)
[2022-12-03 06:40] LABS: MANUAL DIFF REFLEX YES
[2022-12-03 07:32] LABS: BURR CELLS MODERATE; PLATELET SUFFICIENCY NORMAL (NORMAL); POLYCHROMASIA SLIGHT; TOTAL CELLS COUNTED 100 #CELLS
[2022-12-03 07:56] VITALS: BP 122/73
[2022-12-03 12:00] VITALS: BP 115/64
== END 2022-12-03 14:20 | disposition home or self-care (01) | DRG 871 ==
LOC: ED 17:52 → 5E 11-25 03:22 → EDHOLD 11-25 03:22 → 5E 11-25 04:02
PROVIDERS: Emergency Medicine; Internal Medicine; Registered Nurse; Student in an Organized Health Care Education/Training Program; ADMIT Emergency Medicine; ATTEND Emergency Medicine
DX: A41.9 Sepsis, unspecified organism (principal); J18.9 Pneumonia, unspecified organism; E87.20 Acidosis, unspecified; J96.11 Chronic respiratory failure with hypoxia; E44.1 Mild protein-calorie malnutrition; E87.1 Hypo-osmolality and hyponatremia; Z68.1 Body mass index [BMI] 19.9 or less, adult; R65.20 Severe sepsis without septic shock; D64.9 Anemia, unspecified; E87.8 Other disorders of electrolyte and fluid balance, not elsewhere classified; F17.210 Nicotine dependence, cigarettes, uncomplicated; R73.9 Hyperglycemia, unspecified; J43.9 Emphysema, unspecified; I10 Essential (primary) hypertension; M19.90 Unspecified osteoarthritis, unspecified site; K21.9 Gastro-esophageal reflux disease without esophagitis; E78.2 Mixed hyperlipidemia; D50.9 Iron deficiency anemia, unspecified; J20.9 Acute bronchitis, unspecified; Z99.81 Dependence on supplemental oxygen; Z71.6 Tobacco abuse counseling; Z90.49 Acquired absence of other specified parts of digestive tract; Z83.3 Family history of diabetes mellitus; Z82.5 Family history of asthma and other chronic lower respiratory diseases; Z88.0 Allergy status to penicillin; Z79.51 Long term (current) use of inhaled steroids; Z79.899 Other long term (current) drug therapy

== ENCOUNTER 2023-05-07 17:47 | Emergency (ER) | payer MEDICARE ==
[~2023-05-07] VITALS: Wt 39.9 kg
[~2023-05-07 17:47] MED LIST changes: +Carafate1 GM PO; +INVANZ1 GM/50 ML IV; +MONTELUKAST SOD10 MG PO; +PANTOPRAZOLE SO40 MG PO; +ROFLUMILAST250 MCG PO; +TRELEGY ELLIPT1 EACH INH
[2023-05-07 18:23] LABS: BASO # 0.1 10*3/uL (0.0-0.1); BASO % 0.6 % (0.0-1.0); EOS # 0.2 10*3/uL (0.0-0.4); EOS % 1.8 % (1.0-4.0); HEMATOCRIT 27.1 % (42.0-52.0); LYMPH # 1.6 10*3/uL (1.3-4.4); LYMPH % 14.4 % (27.0-41.0); MEAN CELL VOLUME 93.1 fl (80.0-94.0); MEAN CORPUSCULAR HGB 29.6 pg (27.0-31.0); MEAN CORPUSCULAR HGB CONC 31.7 g/dl (33.0-37.0); MEAN PLATELET VOLUME 8.9 fl (9.6-12.3); MONO # 0.6 10*3/uL (0.1-1.0); MONO % 5.3 % (3.0-9.0); NEUT # 8.8 10*3/uL (2.3-7.9); NEUT % 77.2 % (47.0-73.0); PLATELET COUNT AUTOMATED 540 10*3/uL (130-400); RED BLOOD COUNT 2.91 10*6/uL (4.50-5.90); RED CELL DISTRI WIDTH 14.7 % (0-14.5); WHITE BLOOD COUNT 11.4 10*3/uL (4.8-10.8)
[2023-05-07 18:36] LABS: ACT PARTIAL THROMBO TIME 29.8 SECONDS (20.0-32.1); INTERNATIONAL NORM RATIO 1.2 (2.0-3.5)
[2023-05-07 18:46] LABS: ALKALINE PHOSPHATASE 47 U/L (46-116); BUN 7 mg/dl (9-23); CHLORIDE 102 mmol/L (98-107); POTASSIUM 3.4 mmol/L (3.4-5.1)
[2023-05-07 18:51] LABS: SGPT/ALT < 7 U/L (10-49)
[2023-05-07] MEDS ORDERED: PREDNISONE50 MG PO (20:29)
[2023-05-07] MEDS ORDERED: LEVOFLOXACIN750 M2 PO (20:34)
== END 2023-05-07 21:04 | disposition home or self-care (01) ==
LOC: ED 17:47
PROVIDERS: Internal Medicine
DX: J44.9 Chronic obstructive pulmonary disease, unspecified (principal); I10 Essential (primary) hypertension; D64.9 Anemia, unspecified; M19.90 Unspecified osteoarthritis, unspecified site

== ENCOUNTER 2023-12-19 19:57 | Emergency (ER) | payer OTHER ==
[~2023-12-19] VITALS: Ht 167.6 cm; Wt 46.8 kg
[~2023-12-19 19:57] MED LIST changes: +PREDNISONE50 MG PO
[2023-12-20] MEDS ORDERED: SODIUM BICARBONATE 50 MEQ/50 ML SYR IV ONE (13:27)
[2023-12-20] MEDS ORDERED: EPINEPHrine Hydrochloride 1 MG/10 ML SYR IV ONE (13:27)
== END 2023-12-19 22:40 ==
LOC: ED 20:00
DX: I46.9 Cardiac arrest, cause unspecified (principal); J44.9 Chronic obstructive pulmonary disease, unspecified; I10 Essential (primary) hypertension; D64.9 Anemia, unspecified; M19.90 Unspecified osteoarthritis, unspecified site; Z88.0 Allergy status to penicillin; Z90.49 Acquired absence of other specified parts of digestive tract; Z90.89 Acquired absence of other organs; Z98.890 Other specified postprocedural states; Z72.0 Tobacco use; F12.90 Cannabis use, unspecified, uncomplicated